=== PATIENT | male | born 1970 ===

== ENCOUNTER 2017-01-20 15:52 | Emergency (ER) | payer MEDICAID, OTHER ==
[2017-01-20 16:06] VITALS: BP 137/72; PULSE 82; RESP 20; TEMP 98.2; O2SAT 99
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
== END 2017-01-20 19:26 | disposition home or self-care (01) ==
LOC: H.ER 15:52
DX: S39.012A Strain of muscle, fascia and tendon of lower back, initial encounter (principal); V49.9XXA Car occupant (driver) (passenger) injured in unspecified traffic accident, initial encounter

== ENCOUNTER 2017-07-28 15:25 | Inpatient (IN) | payer MEDICAID, OTHER ==
[~2017-07-28 15:25] MED LIST: Insulin Regular 100 units/ml IV ONE
[2017-07-28] MEDS ORDERED: HYDROmorphone 0.5 mg/0.5 ml ISec IVP STA ×2 (16:16→17:26)
--- NOTE | 2017-07-28 16:29 | ED PDOC ---
HPI: Chest Pain Time Seen by Provider: 07/28/17 16:06 Chief Complaint (Nursing): Chest Pain Chief Complaint (Provider): chest pain, leg swelling History Per: Patient, Family () History/Exam Limitations: no limitations Onset/Duration Of Symptoms: Days (2\), Gradual Quality: Sharp Associated Symptoms: Dyspnea Modifying Factors: None Exacerbating Factors: Exertion Alleviating Factors: Rest Nitro Therapy Administered: Per EMS Additional History Per: Prior Records Additional Complaint(s): 47yo male hx chronic kidney disease not on HD presents c/o chest pain central radiating to L shoulder associated with dyspnea and lower extremity edema. States urinating very little now. Denies fever, cough, syncope. States adherent to medications, last had bloodwork performed in march. PMD -[place] [facility] -[facility] Past Medical History Reviewed: Historical Data, Nursing Documentation, Vital Signs Vital Signs: Last Vital Signs Temp 98.9 F 07/29/17 12:00 Pulse 97 H 07/29/17 12:44 Resp 11 L 07/29/17 12:00 BP 129/88 07/29/17 12:44 Pulse Ox 95 07/29/17 12:00 - Medical History PMH: Asthma, Depression (per old record, but pt does not take meds), HTN, Chronic Kidney Disease - Surgical History Surgical History: No Surg Hx - Family History Family History: States: Diabetes, Hypertension - Living Arrangements Living Arrangements: With Family - Immunization History Hx Tetanus Toxoid Vaccination: Yes Hx Influenza Vaccination: No Hx Pneumococcal Vaccination: No - Home Medications Home Medications: Ambulatory Orders Medication Instructions Recorded Albuterol/Ipratropium [Duoneb 3 3 ml IH Q8H PRN 07/28/17 mg/0.5 mg (3 ml) UD] Allopurinol [Zyloprim] 100 mg PO DAILY 07/28/17 Aspirin [Ecotrin] 81 mg PO DAILY 07/28/17 Enalapril Maleate [Vasotec] 20 mg PO BID 07/28/17 Fluticasone Nasal [Flonase] 1 spray JOB DAILY PRN 07/28/17 Fluticasone/Salmeterol 500/50 1 puff IH Q12H 07/28/17 [Advair Diskus 500/50] Furosemide [Lasix] 40 mg PO DAILY 07/28/17 Levalbuterol Tartrate [Xopenex Hfa] 1 puff IH Q4H 07/28/17 Levocetirizine Dihydrochloride 5 mg PO DAILY PRN 07/28/17 [Xyzal] Minoxidil [Minoxidil] 2.5 mg PO BID 07/28/17 Oxycodone HCl/Acetaminophen 1 tab PO Q4H PRN 07/28/17 [Percocet 10-325 mg Tablet] Promethazine HCl/Codeine 10 ml PO Q4H PRN 07/28/17 [Prometh-Codein 6.25-10 mg/5 ml] amLODIPine [Norvasc] 10 mg PO DAILY 07/28/17 cloNIDine [Catapres] 0.3 mg PO TID 07/28/17 hydrALAZINE [Apresoline] 50 mg PO BID 07/28/17 - Allergies Allergies/Adverse Reactions: Allergies Allergy/AdvReac Type Severity Reaction Status Date / Time No Known Allergies Allergy Verified 07/28/17 15:35 Review of Systems ROS Statement: Except As Marked, All Systems Reviewed And Found Negative Constitutional: Positive for: Weakness Eyes: Negative for: Vision Change ENT: Negative for: Ear Pain, Nose Pain Cardiovascular: Positive for: Chest Pain, Palpitations, Orthopnea Respiratory: Positive for: Shortness of Breath, SOB with Exertion Gastrointestinal: Negative for: Nausea, Vomiting, Abdominal Pain Genitourinary Male: Negative for: Dysuria Musculoskeletal: Positive for: Back Pain, Leg Pain. Negative for: Neck Pain, Arm Pain, Foot Pain Skin: Negative for: Rash, Lesions, Jaundice Neurological: Positive for: Dizziness. Negative for: Weakness, Numbness, Headache Psych: Negative for: Suicidal ideation Physical Exam - Reviewed Nursing Documentation Reviewed: Yes Vital Signs Reviewed: Yes - Physical Exam Appears: Positive for: Well, Non-toxic, No Acute Distress Head Exam: Positive for: ATRAUMATIC, NORMAL INSPECTION, NORMOCEPHALIC Skin: Positive for: Warm, Pallor Eye Exam: Positive for: EOMI, Normal appearance, PERRL ENT: Positive for: Normal ENT Inspection Neck: Positive for: Normal, Painless ROM Cardiovascular/Chest: Positive for: Regular Rate, Rhythm Respiratory: Positive for: CNT, Normal Breath Sounds Pulses-Radial (L): 3+/4+ Pulses-Radial (R): 3+/4+ Gastrointestinal/Abdominal: Positive for: Bowel Sounds, Soft. Negative for: Tenderness Extremity: Positive for: Swelling (b/l 2+ edema LE) Neurologic/Psych: Positive for: Alert, Oriented - Laboratory Results Result Diagrams: 07/29/17 06:15 07/29/17 06:15 - ECG ECG: Positive for: Interpreted By Me ECG Rhythm: Positive for: Sinus Rhythm, ST/T Changes, Nonspecific Changes Interpretation Of ECG: QTc 557 Rate: 79 O2 Sat by Pulse Oximetry: 100 Pulse Ox Interpretation: Normal (on supp O2 2L NC) - Radiology X-Ray: Read By Radiologist X-Ray Interpretation: No Acute Disease - Critical Care Total Time (In Min): 65 Comments: PATIENT REQUIRED IMMEDIATE AND RECURRENT BEDSIDE ATTENTION FOR ACUTE LIFE THREATENING METABOLIC EMERGENCY Medical Decision Making Medical Decision Making: labs and EKG ordered CXR ordered and reviewed by manual writer labs reveal profound anemia and acute renal failure with hyperkalemia Insulin/glucose/bicarb/kayexalate ordered D/w Dr Harrell PMD approx 630p D/w Dr Tamez ICU approx 635p D/w Dr Walters renal approx 655p Consent obtained for PRBC transfusion. Patient refused rectal exam. 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 This is because of the severity of symptoms shown, intensity of services needed, and/or the medical risk in this patient being treated as an outpatient. - POA Present On Arrival: Poor Glycemic Control
--- NOTE | 2017-07-28 16:36 | RAD ---
HISTORY: COMPARISON: 04/13/2015 TECHNIQUE: Chest PA and lateral FINDINGS: LINES AND TUBES: None. LUNG AND PLEURA: The right lung is clear. There is a left retrocardiac opacity. There is no large right pleural effusion. The left costophrenic angle is blunted. HEART AND MEDIASTINUM: The heart is not enlarged. The hilar and mediastinal contours are within normal limits. SKELETAL STRUCTURES: The bony structures are within normal limits for the patient's age. VISUALIZED UPPER ABDOMEN: Normal. OTHER FINDINGS: None. IMPRESSION: Suspect left lower lobe pneumonia and small pleural effusion. Follow-up is advised.
[2017-07-28] MEDS ORDERED: HYDROmorphone 0.5 mg/0.5 ml ISec ONE ×2 (16:41→17:27)
[2017-07-28 17:46] LABS: BASO # 1.2 K/uL (0.0-0.2); EOS % 0.1 % (0.0-4.0); HEMATOCRIT 14.1 % (35.0-51.0); LYMPH # 0.3 K/uL (1.0-4.3); LYMPH % 2.7 % (20.0-40.0); MEAN CELL VOLUME 75.4 fl (80.0-94.0); MEAN CORPUSCULAR HEMOGLOBIN 24.1 pg (27.0-31.0); MEAN CORPUSCULAR HGB CONC 31.9 g/dL (33.0-37.0); MEAN PLATELET VOLUME 10.7 fl (7.2-11.7); MONO # 0.4 K/uL (0.0-0.8); MONO % 3.5 % (0.0-10.0); NEUT # 10.1 K/uL (1.8-7.0); NEUT % 83.7 % (50.0-75.0); NRBC % 0.3 % (0.0-0.0); PLATELET COUNT 167 K/uL (130-400); RED CELL DISTRIBUTION WIDTH 23.4 % (11.5-14.5)
[2017-07-28] MEDS ORDERED: Sod Polystyrene Sulf 15 gm/60 ml Susp PO ONE (18:31)
[2017-07-28] MEDS ORDERED: Dextrose 50% SYRINGE Inj (50 ml) IVP ONE (18:31)
[2017-07-28 18:33] LABS: ALB/GLOB RATIO 1.4 (1.0-2.1); BILIRUBIN,TOTAL 0.4 mg/dl (0.2-1.3); CALCIUM 5.4 mg/dL (8.4-10.2); POTASSIUM 6.5 MMOL/L (3.6-5.0); TOTAL PROTEIN 7.7 G/DL (6.3-8.2)
[2017-07-28 18:34] LABS: PARTIAL THROMBOPLASTIN TIME 32.3 Seconds (25.6-37.1)
[2017-07-28] MEDS ORDERED: Sodium Bicarbonate 7.5% (0.9 MEQ/ML) 50ML INJ IV ONE (18:39)
[2017-07-28] MEDS ORDERED: DEXTROSE 5% IV ONE (18:45)
[2017-07-28] MEDS ORDERED: WATER IV ONE (18:45)
[2017-07-28] MEDS ORDERED: CALCIUM GLUCONATE IV ONE (18:45)
--- NOTE | 2017-07-28 18:56 | CP.CCUPN ---
CCU Subjective - Physician Review Subjective (Free Text): 07/28/17 The Patient was seen and examined at the bedside, Medical records reviewed, and management issues were discussed and formulated with the house staff. Mr Sampson is 47 Y/O M with PMHx of HTN, Asthma, Depression and Chronic Kidney Disease Who presents to the ER with complaint od chest pain central radiating to L shoulder associated with dyspnea and lower extremity edema. No Fever/Chills, nausea, vomiting. No chest pain, abd pain. No dysurea nut admit decrease urine out put Labs sig for profound anemia , and acute on chronic renal failure with Bun/Cr 158/27 with hyperkalemia Insulin/glucose/bicarb/kayexalate given in ER In the ED he had elevated BP 168/90, Afebrile Afebrile Renal consulted Underwent HD access placement and will receive emergent HD CCU Objective - Vital Signs / Intake & Output Vital Signs (Last 4 hours): Vital Signs Temp Pulse Pulse Resp BP Pulse Ox 07/28/17 18:50 86 07/28/17 18:37 79 100 07/28/17 15:37 97.4 F L 81 16 168/90 H 100 Intake and Output (Last 8hrs): Intake & Output 07/28/17 07/28/17 07/28/17 06:59 14:59 22:59 Weight 185 lb - Physical Exam Head: Positive for: Atraumatic, Normocephalic. Negative for: Tenderness, Contusion Pupils: Positive for: PERRL. Negative for: Sluggish, Non-Reactive Extroacular Muscles: Positive for: EOMI. Negative for: Gaze Palsy, Entrapment Conjunctiva: Positive for: Normal. Negative for: Injected, Icteric Mouth: Positive for: Moist Mucous Membranes Neck: Positive for: Normal Range of Motion, Trachea Midline. Negative for: Meningeal Signs, MIDLINE TENDERNESS, Paraspinal Tenderness, JVD, Lymphadenopathy , Bruit, Other Respiratory/Chest: Positive for: Clear to Auscultation, Good Air Exchange, Rales , Rhonchi, Tachypneic. Negative for: Respiratory Distress, Accessory Muscle Use Cardiovascular: Positive for: Regular Rate and Rhythm, Normal S1, S2, Peripheal Pulses Present. Negative for: Murmurs, Irregular Rhythm, Tachycardic Upper Extremity: Positive for: Normal Inspection, NORMAL PULSES. Negative for: Cyanosis, Edema Lower Extremity: Positive for: Edema, CALF TENDERNESS (+2), NORMAL PULSES, Capillary Refill < 2 s Neurological: Positive for: GCS=15, CN II-XII Intact, Speech Normal, Motor Func Grossly Intact, Normal Sensory Function Psychiatric: Positive for: Alert, Oriented x 3, Normal Insight, Normal Concentration - Medications Active Medications: Active Medications Generic Name Dose Route Start Last Admin Trade Name Freq PRN Reason Stop Dose Admin Calcium Gluconate 1,000 mg/ 60 mls @ 60 mls/hr 07/28/17 18:45 Dextrose IV 07/28/17 19:44 ONCE ONE - Patient Studies Lab Studies: Lab Studies 07/28/17 07/28/17 07/28/17 Range/Units 17:40 17:40 17:40 WBC 12.0 H (4.8-10.8) K/uL RBC 1.88 L (4.40-5.90) Mil/uL Hgb 4.5 L* (12.0-18.0) g/dL Hct 14.1 L (35.0-51.0) % MCV 75.4 L D (80.0-94.0) fl MCH 24.1 L (27.0-31.0) pg MCHC 31.9 L (33.0-37.0) g/dL RDW 23.4 H (11.5-14.5) % Plt Count 167 (130-400) K/uL MPV 10.7 (7.2-11.7) fl Neut % (Auto) 83.7 H (50.0-75.0) % Lymph % (Auto) 2.7 L (20.0-40.0) % [place] % (Auto) 3.5 (0.0-10.0) % Eos % (Auto) 0.1 (0.0-4.0) % Baso % (Auto) 10.0 H (0.0-2.0) % Neut # 10.1 H (1.8-7.0) K/uL Lymph # 0.3 L (1.0-4.3) K/uL [place] # 0.4 (0.0-0.8) K/uL Eos # 0.0 (0.0-0.7) K/uL Baso # 1.2 H (0.0-0.2) K/uL PT 12.4 (9.8-13.1) Seconds INR 1.1 (0.9-1.2) APTT 32.3 (25.6-37.1) Seconds Sodium 136 Potassium 6.5 H* D Chloride 102 Carbon Dioxide 9 L* D Anion Gap 32 H BUN 158 H* D Creatinine 27.8 H* Est GFR ( Amer) 2 Est GFR (Non-Af Amer) 2 Random Glucose 119 H Calcium 5.4 L* D Total Bilirubin 0.4 AST 46 ALT 51 Alkaline Phosphatase 56 Troponin I NT-Pro-B Natriuret Pep Total Protein 7.7 Albumin 4.4 Globulin 3.3 Albumin/Globulin Ratio 1.4 07/28/17 07/28/17 Range/Units 16:43 16:43 WBC (4.8-10.8) K/uL RBC (4.40-5.90) Mil/uL Hgb (12.0-18.0) g/dL Hct (35.0-51.0) % MCV (80.0-94.0) fl MCH (27.0-31.0) pg MCHC (33.0-37.0) g/dL RDW (11.5-14.5) % Plt Count (130-400) K/uL MPV (7.2-11.7) fl Neut % (Auto) (50.0-75.0) % Lymph % (Auto) (20.0-40.0) % [place] % (Auto) (0.0-10.0) % Eos % (Auto) (0.0-4.0) % Baso % (Auto) (0.0-2.0) % Neut # (1.8-7.0) K/uL Lymph # (1.0-4.3) K/uL [place] # (0.0-0.8) K/uL Eos # (0.0-0.7) K/uL Baso # (0.0-0.2) K/uL PT 12.4 (9.8-13.1) Seconds INR 1.1 (0.9-1.2) APTT 29.0 (25.6-37.1) Seconds Sodium Cancelled Potassium Cancelled Chloride Cancelled Carbon Dioxide Cancelled Anion Gap Cancelled BUN Cancelled Creatinine Cancelled Est GFR ( Amer) Cancelled Est GFR (Non-Af Amer) Cancelled Random Glucose Cancelled Calcium Cancelled Total Bilirubin Cancelled AST Cancelled ALT Cancelled Alkaline Phosphatase Cancelled Troponin I Cancelled NT-Pro-B Natriuret Pep Cancelled Total Protein Cancelled Albumin Cancelled Globulin Cancelled Albumin/Globulin Ratio Cancelled Laboratory Results - last 24 hr 07/28/17 07/28/17 07/28/17 16:43 16:43 17:40 WBC 12.0 H RBC 1.88 L Hgb 4.5 L* Hct 14.1 L MCV 75.4 L D MCH 24.1 L MCHC 31.9 L RDW 23.4 H Plt Count 167 MPV 10.7 Neut % (Auto) 83.7 H Lymph % (Auto) 2.7 L [place] % (Auto) 3.5 Eos % (Auto) 0.1 Baso % (Auto) 10.0 H Neut # 10.1 H Lymph # 0.3 L [place] # 0.4 Eos # 0.0 Baso # 1.2 H PT 12.4 INR 1.1 APTT 29.0 Sodium Cancelled Potassium Cancelled Chloride Cancelled Carbon Dioxide Cancelled Anion Gap Cancelled BUN Cancelled Creatinine Cancelled Est GFR ( Amer) Cancelled Est GFR (Non-Af Amer) Cancelled Random Glucose Cancelled Calcium Cancelled Total Bilirubin Cancelled AST Cancelled ALT Cancelled Alkaline Phosphatase Cancelled Troponin I Cancelled NT-Pro-B Natriuret Pep Cancelled Total Protein Cancelled Albumin Cancelled Globulin Cancelled Albumin/Globulin Ratio Cancelled 07/28/17 07/28/17 17:40 17:40 WBC RBC Hgb Hct MCV MCH MCHC RDW Plt Count MPV Neut % (Auto) Lymph % (Auto) [place] % (Auto) Eos % (Auto) Baso % (Auto) Neut # Lymph # [place] # Eos # Baso # PT 12.4 INR 1.1 APTT 32.3 Sodium 136 Potassium 6.5 H* D Chloride 102 Carbon Dioxide 9 L* D Anion Gap 32 H BUN 158 H* D Creatinine 27.8 H* Est GFR ( Amer) 2 Est GFR (Non-Af Amer) 2 Random Glucose 119 H Calcium 5.4 L* D Total Bilirubin 0.4 AST 46 ALT 51 Alkaline Phosphatase 56 Troponin I NT-Pro-B Natriuret Pep Total Protein 7.7 Albumin 4.4 Globulin 3.3 Albumin/Globulin Ratio 1.4 EKG/Cardiology Studies: Cardiology / EKG Studies 07/28/17 16:06 ELECTROCARDIOGRAM Stat Comment: Mode Of Transportation: Reason For Exam: CP Isolation: Contact Review of Systems - Cardiovascular Cardiovascular: absent: Chest Pain at Rest, Chest Pain with Activity, Diaphoresis - Respiratory Respiratory: Dyspnea, Dyspnea on Exertion. absent: Hemoptysis - Gastrointestinal Gastrointestinal: absent: Abdominal Pain Critical Care Progress Note - Extremities/Vascular Does the Patient have a Central Venous Catheter?: Yes Does the Patient need a Central Venous Catheter?: Yes Does the Patient have a Dickson Catheter?: No Does the Patient need a Dickson Catheter?: No Assessment/Plan (1) Hyperkalemia Current Visit: Yes Status: Acute (2) Severe anemia Current Visit: Yes Status: Acute (3) [id number] renal failure Current Visit: No Status: Acute Priority: High - Assessment and Plan (Free Text) Plan: - Acute kidney injury with Hyperkalemia, prerenal disease also uncontrolled HTN and need to R/O obstruction. - Metabolic acidosis (anion gap) - Hyperkalemia, EKG without peaked t-waves. Nephrology Consult appreciated, emergent dialysis Underwent HD access placement and will receive emergent HD Supplement calcium Vascular Consult for AV Shunt Correct hyperkalemia with D50, Insulin, calcium gluconate Repeat Labs, EKG, lactic acid, CPK, phosphate Type and cross match 4U Packed RBC, transfuse 2U with HD Stool for occult blood Cont outpatient meds (adjust for GFR)
[2017-07-28] MEDS ORDERED: Sod Polystyrene Sulf 15 gm/60 ml Susp ONE (18:59)
[2017-07-28] MEDS ORDERED: Dextrose 50% SYRINGE Inj (50 ml) ONE (19:03)
[2017-07-28 19:31] LABS: ACANTHOCYTES SLIGHT; BASOPHIL 1 % (0-2); EOSINOPHIL 1 % (0-7); NEUTROPHIL 86 % (42-75); TOTAL CELLS COUNTED 100
[2017-07-29] MEDS ORDERED: Enalaprilat 2.5 MG/2 ML IVP STA ×2 (00:19→05:39)
--- NOTE | 2017-07-29 01:55 | PCM.PROC ---
Procedures Attestation:: I certify that I have explained the specified Operation(s) or Procedure(s), risks, benefits and reasonable alternatives to the Patient and/or other person responsible. The opportunity was given to ask questions and all questions answered - Central Line Placement Right Femoral Hemodialysis Access Aseptic technique was employed throughout the procedure: Hand Hygiene done prior to procedure, Full sterile barriers (mask, hair cover, sterile gown, sterile gloves), Chloraprep Antiseptic: 2 minute prep for Femoral CVP Time Out Performed: Yes Pt. Placed on Pulse Ox Monitor: Yes Central Line Prep: Chlorhexidine-Alcohol Combination Local Anesthesia Used: With Epinepherine Amount of Anesthesia Used (mls): 5 Ultrasound Used for Placement: Yes Central Line Lumen Inserted: double Central Line Length: 16 cm Post Procedure: Sutured in Place, Good Blood Return, All Ports Aspirated, Flushed, Capped, Sterile Dressing Applied Secured by: Suture Post procedure dressing: Clear vapor permeable, Chlorhexidine disc (Biopatch) Patient Tolerated Procedure: Well, No Complications
[2017-07-29] MEDS ORDERED: HYDROmorphone 0.5 mg/0.5 ml ISec IVP PRN (05:18)
[2017-07-29] MEDS ORDERED: Albuterol-Ipratrop 3 mg / 0.5 (3 ml) UD IH PRN (05:28)
[2017-07-29] MEDS ORDERED: Oxycodone/Acetaminophen 5/325 mg Tab PO PRN ×2 (05:31→05:32)
[2017-07-29] MEDS: Fluticasone-Salmeterol 500-50mcg Diskus IH SCH ×2 (06:21→17:10)
[2017-07-29 06:40] LABS: HEMATOCRIT 19.6 % (35.0-51.0); MEAN CELL VOLUME 79.2 fl (80.0-94.0); MEAN CORPUSCULAR HEMOGLOBIN 26.3 pg (27.0-31.0); MEAN CORPUSCULAR HGB CONC 33.2 g/dL (33.0-37.0); RED CELL DISTRIBUTION WIDTH 22.3 % (11.5-14.5)
[2017-07-29 07:18] LABS: ALB/GLOB RATIO 1.4 (1.0-2.1); BILIRUBIN,TOTAL 0.4 mg/dl (0.2-1.3); CALCIUM 6.2 mg/dL (8.4-10.2); MAGNESIUM 1.5 MG/DL (1.6-2.3); PHOSPHOROUS 9.4 mg/dl (2.5-4.5); POTASSIUM 4.2 MMOL/L (3.6-5.0); TOTAL PROTEIN 7.4 G/DL (6.3-8.2)
--- NOTE | 2017-07-29 11:49 | CARD ---
APPROVED REPORT EKG Measurement Heart [id number] <Conclusion> Normal sinus rhythm Possible Left atrial enlargement Left ventricular hypertrophy Prolonged QT Abnormal ECG
--- NOTE | 2017-07-29 15:32 | CP.PCM.PN ---
Subjective - Date & Time of Evaluation Date of Evaluation: 07/29/17 Time of Evaluation: 15:23 - Subjective Subjective: consult dictated now Dialysis Note HD started now for 3 h, this is second HD pi. sitting up in bed ,working on his phone nausea + pale no vomiting P/E receiving HD now via temporary catheter. chest no rales HT no rubs RSR Abd.soft ext. 1+ pitting edema lab reviewed creat over 21 hbg 6+ received 2 unit PC this morning NA bath 138, K 2 meq bicarb. bath 34 UF 2000 as tolerated hyperphosphatemia metabolic acidosis anemia uremia HTN will need more HD tomorrow. Objective - Vital Signs/Intake and Output Vital Signs (last 24 hours): Temp Pulse Resp BP Pulse Ox 98.9 F 107 H 16 153/104 H 99 07/29/17 12:00 07/29/17 14:00 07/29/17 14:00 07/29/17 14:00 07/29/17 14:00 Intake and Output: 07/29/17 07/29/17 06:59 18:59 Intake Total 325 650 Output Total 1999 Balance -0611 650 - Medications Medications: Current Medications Albuterol/Ipratropium (Duoneb 3 Mg/0.5 Mg (3 Ml) Ud) 3 ml IH Q8H PRN PRN Reason: Shortness of Breath Allopurinol (Zyloprim) 100 mg PO DAILY [facility] Last Admin: 07/29/17 09:15 Dose: 100 mg Amlodipine Besylate (Norvasc) 10 mg PO DAILY [facility] Clonidine HCl (Catapres) 0.3 mg PO TID [facility] Last Admin: 07/29/17 12:44 Dose: Not Given Enalapril Maleate (Vasotec) 20 mg PO BID [facility] Hydralazine HCl (Apresoline) 50 mg PO BID [facility] Hydralazine HCl (Apresoline) 10 mg IV Q6 [facility] Last Admin: 07/29/17 09:12 Dose: 10 mg Hydromorphone HCl (Dilaudid) 1 mg IVP Q4 PRN PRN Reason: Pain, severe (8-10) Last Admin: 07/29/17 10:17 Dose: 1 mg Hydromorphone HCl (Dilaudid) 0.5 mg IVP Q4H PRN PRN Reason: Pain, moderate (4-7) Stop: 07/31/17 05:19 Minoxidil (Minoxidil) 2.5 mg PO BID [facility] Last Admin: 07/29/17 09:14 Dose: 2.5 mg Ondansetron HCl (Zofran Inj) 4 mg IVP Q4 PRN PRN Reason: Nausea/Vomiting Last Admin: 07/29/17 09:15 Dose: 4 mg Fluticasone/Salmeterol (Advair Diskus 500/50) 1 puff IH Q12H [facility] Last Admin: 07/29/17 06:21 Dose: 1 puff - Labs Labs: 07/29/17 06:15 07/29/17 06:15 PT 12.4 Seconds (9.8-13.1) 07/28/17 17:40 INR 1.1 (0.9-1.2) 07/28/17 17:40 APTT 32.3 Seconds (25.6-37.1) 07/28/17 17:40
--- NOTE | 2017-07-29 16:18 | CP.PCM.HP ---
History of Present Illness - History of Present Illness History of Present Illness: CC: Chest pain. 47 y/o M, brought to [facility] for evaluation of CP for 2 days [employer] with no relief. Pt was brought to hospital on 07/28/17 by EMS for evaluation of central chest pain gradually increased from 2 days [employer], Pt received ASA and 324 mg Nitro spay x3 from autotransfusionist but upon arrival to ER symptoms continued, pain was intermittent, sharp, stabbing, severe intensity 9-10:10, radiated to L shoulder associated to Dyspnea, legs swelling, legs edema and pain. Worsening symptoms: Found with Severe anemia, Acute Renal failure, Hyperkalemia (Critical Lab result: Hgb 4.5, K 6.5, Carbon Dioxide 9, BUN 150, Creatinine 27.8 Calcio 5.4), Pt with Weaknesses, dizziness, back pain, SOTELO and c/o of decreased urine output. Pt had Nephrology emergency consult for HD, also had 4 U PRBC transfused, Hgb today appear in 6.5 Aggravated factor: Pain increased with movements/ exercise. Pt denied: Fever, chills, v/v/d, abdominal pain, cough, syncope, dysuria, sick contact, recent travel. CXR: Suspected for LLL PNA and small pleural effusion Present on Admission - Present on Admission Any Indicators Present on Admission: Yes History of Uncontrolled Diabetes: Yes Review of Systems - Constitutional Constitutional: Weakness - EENT Eyes: Other (negative) Ears: Other (negative) Nose/Mouth/Throat: Other (negative) - Cardiovascular Cardiovascular: Chest Pain, Chest Pain at Rest, Chest Pain with Activity, Pain Radiating to Arm/Neck/Jaw (radiated to L shoulder), Leg Edema, Rapid Heart Rate - Respiratory Respiratory: Dyspnea, Dyspnea on Exertion - Gastrointestinal Gastrointestinal: Other (negative) - Genitourinary Genitourinary: Other (decreassed output) - Musculoskeletal Musculoskeletal: Back Pain, Other (shoulder pain) - Integumentary Integumentary: Swelling (legs), Other (negative) - Neurological Neurological: Dizziness, Weakness - Psychiatric Psychiatric: Other (negative) - Endocrine Endocrine: Other (negative) - Hematologic/Lymphatic Hematologic: Other (severe anemia.) Past Patient History - Past Medical History & Family History Past Medical History?: Yes Pertinent Family History: HTN, DM - Past Social History Smoking Status: Current Some Days Smoker Alcohol: None Drugs: Denies Home Situation {Lives}: With Family - CARDIAC Hx Cardiac Disorders: Yes Hx Hypertension: Yes - PULMONARY Hx Respiratory Disorders: Yes Hx Asthma: Yes - NEUROLOGICAL Hx Neurological Disorder: No - HEENT Hx HEENT Problems: No - RENAL Hx Chronic Kidney Disease: Yes - ENDOCRINE/METABOLIC Hx Endocrine Disorders: No - HEMATOLOGICAL/ONCOLOGICAL Hx Blood Disorders: Yes Hx Anemia: Yes Hx Blood Transfusions: No - INTEGUMENTARY Hx Dermatological Problems: No - MUSCULOSKELETAL/RHEUMATOLOGICAL Hx Musculoskeletal Disorders: Yes Hx Back Pain: Yes Hx Falls: No Hx Herniated Disk: Yes Hx Unsteady Gait: Yes - GASTROINTESTINAL Hx Gastrointestinal Disorders: No - GENITOURINARY/GYNECOLOGICAL Hx Genitourinary Disorders: No - PSYCHIATRIC Hx Psychophysiologic Disorder: Yes Hx Depression: Yes (per old record, but pt does not take meds) - SURGICAL HISTORY Hx Surgeries: No - ANESTHESIA Hx Anesthesia: No Hx Anesthesia Reactions: No Hx Malignant Hyperthermia: No Has any member of the family had a problem w/ anesthesia?: No Meds Allergies/Adverse Reactions: Allergies Allergy/AdvReac Type Severity Reaction Status Date / Time No Known Allergies Allergy Verified 07/28/17 15:35 Physical Exam - Constitutional Appears: No Acute Distress - Head Exam Head Exam: NORMAL INSPECTION - Eye Exam Eye Exam: PERRL - ENT Exam ENT Exam: Normal Exam - Neck Exam Neck exam: Positive for: Normal Inspection - Respiratory Exam Respiratory Exam: Decreased Breath Sounds (at bases), Rhonchi - Cardiovascular Exam Cardiovascular Exam: Tachycardia - GI/Abdominal Exam GI & Abdominal Exam: Normal Bowel Sounds, Soft - Extremities Exam Additional comments: Edema 2+ BLE, Swelling BLE. Pedal pulse 2+. - Back Exam Back exam: NORMAL INSPECTION - Neurological Exam Neurological exam: Alert, Oriented x3 Additional comments: No motor sensory deficit - Psychiatric Exam Psychiatric exam: Normal Mood - Skin Skin Exam: Warm Results - Vital Signs Recent Vital Signs: Last Vital Signs Temp 98.9 F 07/29/17 12:00 Pulse 107 H 07/29/17 14:00 Resp 16 07/29/17 14:00 BP 153/104 H 07/29/17 14:00 Pulse Ox 99 07/29/17 14:00 reviewed Torrie - Labs Result Diagrams: 07/29/17 06:15 07/29/17 06:15 Labs: Laboratory Results - last 24 hr 1107/28/17 07/28/17 16:43 16:43 17:40 WBC 12.0 H RBC 1.88 L Hgb 4.5 L* Hct 14.1 L MCV 75.4 L D MCH 24.1 L MCHC 31.9 L RDW 23.4 H Plt Count 167 MPV 10.7 Neut % (Auto) 83.7 H Lymph % (Auto) 2.7 L Casey % (Auto) 3.5 Eos % (Auto) 0.1 Baso % (Auto) 10.0 H Neut # 10.1 H Lymph # 0.3 L Casey # 0.4 Eos # 0.0 Baso # 1.2 H Neutrophils % (Manual) 86 H Band Neutrophils % 3 H Lymphocytes % (Manual) 5 L Monocytes % (Manual) 4 Eosinophils % (Manual) 1 Basophils % (Manual) 1 Platelet Estimate Normal Hypochromasia (manual) Moderate Poikilocytosis (manual Moderate Anisocytosis (manual) Marked Microcytosis (manual) Moderate Target Cells Moderate Tear Drop Cells Slight Acanthocytes (Spur) Slight Schistocytes Slight PT 12.4 INR 1.1 APTT 29.0 Sodium Cancelled Potassium Cancelled Chloride Cancelled Carbon Dioxide Cancelled Anion Gap Cancelled BUN Cancelled Creatinine Cancelled Est GFR ( Amer) Cancelled Est GFR (Non-Af Amer) Cancelled Random Glucose Cancelled Calcium Cancelled Phosphorus Magnesium Total Bilirubin Cancelled AST Cancelled ALT Cancelled Alkaline Phosphatase Cancelled Troponin I Cancelled NT-Pro-B Natriuret Pep Cancelled Total Protein Cancelled Albumin Cancelled Globulin Cancelled Albumin/Globulin Ratio Cancelled Hep Bs Antigen Hep B Core IgM Ab Blood Type Blood Type Confirm Antibody Screen Crossmatch BBK History Checked 07/28/17 07/28/17 07/28/17 17:40 17:40 17:40 WBC RBC Hgb Hct MCV MCH MCHC RDW Plt Count MPV Neut % (Auto) Lymph % (Auto) Casey % (Auto) Eos % (Auto) Baso % (Auto) Neut # Lymph # Casey # Eos # Baso # Neutrophils % (Manual) Band Neutrophils % Lymphocytes % (Manual) Monocytes % (Manual) Eosinophils % (Manual) Basophils % (Manual) Platelet Estimate Hypochromasia (manual) Poikilocytosis (manual Anisocytosis (manual) Microcytosis (manual) Target Cells Tear Drop Cells Acanthocytes (Spur) Schistocytes PT 12.4 INR 1.1 APTT 32.3 Sodium 136 Potassium 6.5 H* D Chloride 102 Carbon Dioxide 9 L* D Anion Gap 32 H BUN 158 H* D Creatinine 27.8 H* Est GFR ( Amer) 2 Est GFR (Non-Af Amer) 2 Random Glucose 119 H Calcium 5.4 L* D Phosphorus Magnesium Total Bilirubin 0.4 AST 46 ALT 51 Alkaline Phosphatase 56 Troponin I NT-Pro-B Natriuret Pep Total Protein 7.7 Albumin 4.4 Globulin 3.3 Albumin/Globulin Ratio 1.4 Hep Bs Antigen Hep B Core IgM Ab Blood Type O POSITIVE Blood Type Confirm Antibody Screen Negative Crossmatch See Detail BBK History Checked No verified bt 07/28/17 07/28/17 07/28/17 18:40 18:55 23:23 WBC RBC Hgb Hct MCV MCH MCHC RDW Plt Count MPV Neut % (Auto) Lymph % (Auto) Casey % (Auto) Eos % (Auto) Baso % (Auto) Neut # Lymph # Casey # Eos # Baso # Neutrophils % (Manual) Band Neutrophils % Lymphocytes % (Manual) Monocytes % (Manual) Eosinophils % (Manual) Basophils % (Manual) Platelet Estimate Hypochromasia (manual) Poikilocytosis (manual Anisocytosis (manual) Microcytosis (manual) Target Cells Tear Drop Cells Acanthocytes (Spur) Schistocytes PT INR APTT Sodium Potassium Chloride Carbon Dioxide Anion Gap BUN Creatinine Est GFR ( Amer) Est GFR (Non-Af Amer) Random Glucose Calcium Phosphorus Magnesium Total Bilirubin AST ALT Alkaline Phosphatase Troponin I 0.0700 NT-Pro-B Natriuret Pep Total Protein Albumin Globulin Albumin/Globulin Ratio Hep Bs Antigen Negative Hep B Core IgM Ab Negative Blood Type Blood Type Confirm O POSITIVE Antibody Screen Crossmatch BBK History Checked 07/29/17 07/29/17 06:15 06:15 WBC 13.0 H RBC 2.48 L Hgb 6.5 L* D Hct 19.6 L MCV 79.2 L D MCH 26.3 L MCHC 33.2 RDW 22.3 H Plt Count 143 MPV Neut % (Auto) Lymph % (Auto) Casey % (Auto) Eos % (Auto) Baso % (Auto) Neut # Lymph # Casey # Eos # Baso # Neutrophils % (Manual) Band Neutrophils % Lymphocytes % (Manual) Monocytes % (Manual) Eosinophils % (Manual) Basophils % (Manual) Platelet Estimate Hypochromasia (manual) Poikilocytosis (manual Anisocytosis (manual) Microcytosis (manual) Target Cells Tear Drop Cells Acanthocytes (Spur) Schistocytes PT INR APTT Sodium 138 Potassium 4.2 Chloride 100 Carbon Dioxide 15 L Anion Gap 28 H BUN 119 H* D Creatinine 21.6 H* D Est GFR ( Amer) 3 Est GFR (Non-Af Amer) 2 Random Glucose 112 H Calcium 6.2 L Phosphorus 9.4 H Magnesium 1.5 L Total Bilirubin 0.4 AST 42 ALT 44 Alkaline Phosphatase 57 Troponin I NT-Pro-B Natriuret Pep Total Protein 7.4 Albumin 4.3 Globulin 3.1 Albumin/Globulin Ratio 1.4 Hep Bs Antigen Hep B Core IgM Ab Blood Type Blood Type Confirm Antibody Screen Crossmatch BBK History Checked reviewed J.P. Assessment & Plan (1) Chest pain Status: Acute Priority: High (2) Hyperkalemia Status: Acute Priority: High (3) Chronic kidney disease, stage IV (severe) Status: Acute Priority: High (4) [id number] renal failure Status: Acute Priority: High (5) Hypertensive renal disease Status: Chronic Priority: High (6) Uncontrolled hypertension Status: Acute Priority: High (7) Back pain Status: Chronic Priority: High (8) Weakness Status: Chronic Priority: High - Assessment and Plan (Free Text) Plan: F/U EKG, continue Catapres, Minoxidil, Norvasc, Duoneb, Dilaudid, Renal diet, PT , OT, Nephrology consult appreciated - Date & Time Date: 07/29/17 Time: 10:30
--- NOTE | 2017-07-29 17:49 | CP.CCUPN ---
CCU Subjective - Physician Review Subjective (Free Text): Underwent HD overnight and again now, given 3rd and 4th units PRBCs. Platelets withheld since there is no active bleeding. 1 unit FFP also recd overnight. He denies any SOB, has intermittent non-specific chest discomfort, not assoc with radiation, dizziness, sweats, palpitations or SOB. Other vitals and I/O's reviewed. ROS: No other pertinent negs or positives on 10+ system review. PMSFH: All other Nursing and physician documentation reviewed to date; no new pertinent info noted relevant to current medical problems. IMPRESSION / MAJOR PROBLEMS NOW: 1. Acute Renal failure / Uremia; on CKD, with Hyperkalemia 2. Severe Chronic Disease Anemia 3. Chronic LBP syndrome PLAN: 1. HD as per Nephrology. Phosphate binders, watch Ca levels. 2. Additional PRBCs today ordered, platelet transfusion cancelled, unless there is active bleeding evident due to possible dysfunctional platelets. 3. Supplement Magnesium. 4. Cautious narcotic use for chronic pain syndrome. 5. Stable for Tele bed. CCU Objective - Vital Signs / Intake & Output Vital Signs (Last 4 hours): Vital Signs Temp Pulse Resp BP Pulse Ox 07/29/17 17:11 96 H 153/94 H 07/29/17 17:10 95 H 153/94 H 07/29/17 16:00 99.0 F 95 H 146/99 H 100 07/29/17 14:00 107 H 16 153/104 H 99 07/29/17 13:52 79 100 Intake and Output (Last 8hrs): Intake & Output 07/29/17 07/29/17 07/29/17 06:59 14:59 22:59 Intake Total 325 650 Output Total 1999 Balance -0031 650 Intake: Blood Product 325 650 Output: Ultrafiltrate 1999 - Physical Exam Head: Positive for: Normocephalic Pupils: Positive for: PERRL Extroacular Muscles: Positive for: EOMI Conjunctiva: Positive for: Normal. Negative for: Injected, Icteric Mouth: Positive for: Moist Mucous Membranes Neck: Positive for: Normal Range of Motion. Negative for: JVD Respiratory/Chest: Positive for: Clear to Auscultation, Good Air Exchange, Respiratory Distress, Rales, Tachypneic. Negative for: Accessory Muscle Use Cardiovascular: Positive for: Regular Rate and Rhythm, Normal S1, S2, Peripheal Pulses Present. Negative for: Murmurs, Tachycardic, Rub Abdomen: Positive for: Normal Bowel Sounds. Negative for: Tenderness, Distention, Mass/Organomegaly Upper Extremity: Positive for: Normal Inspection, NORMAL PULSES. Negative for: Cyanosis, Edema Lower Extremity: Positive for: Edema, CALF TENDERNESS (+2), NORMAL PULSES, Capillary Refill < 2 s Neurological: Positive for: GCS=15, CN II-XII Intact, Speech Normal, Motor Func Grossly Intact, Normal Sensory Function Psychiatric: Positive for: Alert, Oriented x 3, Normal Insight, Normal Concentration - Medications Active Medications: Active Medications Generic Name Dose Route Start Last Admin Trade Name Freq PRN Reason Stop Dose Admin Albuterol/Ipratropium 3 ml 07/29/17 05:28 Duoneb 3 Mg/0.5 Mg (3 Ml) Ud IH Q8H PRN Shortness of Breath Allopurinol 100 mg 07/29/17 09:00 07/29/17 09:15 Zyloprim PO 100 mg DAILY JUAN DAVID Administration Amlodipine Besylate 10 mg 07/29/17 09:00 07/29/17 17:11 Norvasc PO Not Given DAILY JUAN DAVID Clonidine HCl 0.3 mg 07/29/17 09:00 07/29/17 17:10 Catapres PO Not Given TID JUAN DAVID Enalapril Maleate 20 mg 07/29/17 09:00 Vasotec PO BID JUAN DAVID Hydralazine HCl 50 mg 07/29/17 09:00 Apresoline PO BID JUAN DAVID Hydralazine HCl 10 mg 07/29/17 10:00 07/29/17 17:10 Apresoline IV Not Given Q6 JUAN DAVID Hydromorphone HCl 1 mg 07/29/17 05:18 07/29/17 15:25 Dilaudid IVP 1 mg Q4 PRN Administration Pain, severe (8-10) Hydromorphone HCl 0.5 mg 07/29/17 05:18 Dilaudid IVP 07/31/17 05:19 Q4H PRN Pain, moderate (4-7) Minoxidil 2.5 mg 07/29/17 09:00 07/29/17 17:11 Minoxidil PO Not Given BID JUAN DAVID Ondansetron HCl 4 mg 07/28/17 22:03 07/29/17 09:15 Zofran Inj IVP 4 mg Q4 PRN Administration Nausea/Vomiting Fluticasone/Salmeterol 1 puff 07/29/17 05:30 07/29/17 17:10 Advair Diskus 500/50 IH 1 puff Q12H JUAN DAVID Administration - Patient Studies Lab Studies: Lab Studies 07/29/17 07/29/17 07/28/17 Range/Units 06:15 06:15 23:23 WBC 13.0 H (4.8-10.8) K/uL RBC 2.48 L (4.40-5.90) Mil/uL Hgb 6.5 L* D (12.0-18.0) g/dL Hct 19.6 L (35.0-51.0) % MCV 79.2 L D (80.0-94.0) fl MCH 26.3 L (27.0-31.0) pg MCHC 33.2 (33.0-37.0) g/dL RDW 22.3 H (11.5-14.5) % Plt Count 143 (130-400) K/uL MPV (7.2-11.7) fl Neut % (Auto) (50.0-75.0) % Lymph % (Auto) (20.0-40.0) % [place] % (Auto) (0.0-10.0) % Eos % (Auto) (0.0-4.0) % Baso % (Auto) (0.0-2.0) % Neut # (1.8-7.0) K/uL Lymph # (1.0-4.3) K/uL [place] # (0.0-0.8) K/uL Eos # (0.0-0.7) K/uL Baso # (0.0-0.2) K/uL Neutrophils % (Manual) (42-75) % Band Neutrophils % (0-2) % Lymphocytes % (Manual) (20-50) % Monocytes % (Manual) (0-10) % Eosinophils % (Manual) (0-7) % Basophils % (Manual) (0-2) % Platelet Estimate (NORMAL) Hypochromasia (manual) Poikilocytosis (manual Anisocytosis (manual) Microcytosis (manual) Target Cells Tear Drop Cells Acanthocytes (Spur) Schistocytes PT (9.8-13.1) Seconds INR (0.9-1.2) APTT (25.6-37.1) Seconds Sodium 138 (132-148) mmol/l Potassium 4.2 (3.6-5.0) MMOL/L Chloride 100 (98-107) mmol/L Carbon Dioxide 15 L (22-30) mmol/L Anion Gap 28 H (10-20) BUN 119 H* D (9-20) mg/dl Creatinine 21.6 H* D (0.8-1.5) mg/dl Est GFR ( Amer) 3 Est GFR (Non-Af Amer) 2 Random Glucose 112 H (75-110) mg/dL Calcium 6.2 L (8.4-10.2) mg/dL Phosphorus 9.4 H (2.5-4.5) mg/dl Magnesium 1.5 L (1.6-2.3) MG/DL Total Bilirubin 0.4 (0.2-1.3) mg/dl AST 42 (17-59) U/L ALT 44 (21-72) U/L Alkaline Phosphatase 57 (38-126) U/L Troponin I (0.00-0.120) ng/mL Total Protein 7.4 (6.3-8.2) G/DL Albumin 4.3 (3.5-5.0) g/dL Globulin 3.1 (2.2-3.9) gm/dL Albumin/Globulin Ratio 1.4 (1.0-2.1) Hep Bs Antigen Negative (NEGATIVE) Hep Bs Antibody (NEGATIVE) Hep B Core IgM Ab Negative (NEGATIVE) Blood Type Blood Type Confirm Antibody Screen Crossmatch BBK History Checked 07/28/17 07/28/17 07/28/17 Range/Units 18:55 18:40 17:40 WBC (4.8-10.8) K/uL RBC (4.40-5.90) Mil/uL Hgb (12.0-18.0) g/dL Hct (35.0-51.0) % MCV (80.0-94.0) fl MCH (27.0-31.0) pg MCHC (33.0-37.0) g/dL RDW (11.5-14.5) % Plt Count (130-400) K/uL MPV (7.2-11.7) fl Neut % (Auto) (50.0-75.0) % Lymph % (Auto) (20.0-40.0) % [place] % (Auto) (0.0-10.0) % Eos % (Auto) (0.0-4.0) % Baso % (Auto) (0.0-2.0) % Neut # (1.8-7.0) K/uL Lymph # (1.0-4.3) K/uL [place] # (0.0-0.8) K/uL Eos # (0.0-0.7) K/uL Baso # (0.0-0.2) K/uL Neutrophils % (Manual) (42-75) % Band Neutrophils % (0-2) % Lymphocytes % (Manual) (20-50) % Monocytes % (Manual) (0-10) % Eosinophils % (Manual) (0-7) % Basophils % (Manual) (0-2) % Platelet Estimate (NORMAL) Hypochromasia (manual) Poikilocytosis (manual Anisocytosis (manual) Microcytosis (manual) Target Cells Tear Drop Cells Acanthocytes (Spur) Schistocytes PT (9.8-13.1) Seconds INR (0.9-1.2) APTT (25.6-37.1) Seconds Sodium (132-148) mmol/l Potassium (3.6-5.0) MMOL/L Chloride (98-107) mmol/L Carbon Dioxide (22-30) mmol/L Anion Gap (10-20) BUN (9-20) mg/dl Creatinine (0.8-1.5) mg/dl Est GFR ( Amer) Est GFR (Non-Af Amer) Random Glucose (75-110) mg/dL Calcium (8.4-10.2) mg/dL Phosphorus (2.5-4.5) mg/dl Magnesium (1.6-2.3) MG/DL Total Bilirubin (0.2-1.3) mg/dl AST (17-59) U/L ALT (21-72) U/L Alkaline Phosphatase (38-126) U/L Troponin I 0.0700 (0.00-0.120) ng/mL Total Protein (6.3-8.2) G/DL Albumin (3.5-5.0) g/dL Globulin (2.2-3.9) gm/dL Albumin/Globulin Ratio (1.0-2.1) Hep Bs Antigen (NEGATIVE) Hep Bs Antibody (NEGATIVE) Hep B Core IgM Ab (NEGATIVE) Blood Type O POSITIVE Blood Type Confirm O POSITIVE Antibody Screen Negative Crossmatch See Detail BBK History Checked No verified bt 07/28/17 07/28/17 07/28/17 Range/Units 17:40 17:40 17:40 WBC 12.0 H (4.8-10.8) K/uL RBC 1.88 L (4.40-5.90) Mil/uL Hgb 4.5 L* (12.0-18.0) g/dL Hct 14.1 L (35.0-51.0) % MCV 75.4 L D (80.0-94.0) fl MCH 24.1 L (27.0-31.0) pg MCHC 31.9 L (33.0-37.0) g/dL RDW 23.4 H (11.5-14.5) % Plt Count 167 (130-400) K/uL MPV 10.7 (7.2-11.7) fl Neut % (Auto) 83.7 H (50.0-75.0) % Lymph % (Auto) 2.7 L (20.0-40.0) % [place] % (Auto) 3.5 (0.0-10.0) % Eos % (Auto) 0.1 (0.0-4.0) % Baso % (Auto) 10.0 H (0.0-2.0) % Neut # 10.1 H (1.8-7.0) K/uL Lymph # 0.3 L (1.0-4.3) K/uL [place] # 0.4 (0.0-0.8) K/uL Eos # 0.0 (0.0-0.7) K/uL Baso # 1.2 H (0.0-0.2) K/uL Neutrophils % (Manual) 86 H (42-75) % Band Neutrophils % 3 H (0-2) % Lymphocytes % (Manual) 5 L (20-50) % Monocytes % (Manual) 4 (0-10) % Eosinophils % (Manual) 1 (0-7) % Basophils % (Manual) 1 (0-2) % Platelet Estimate Normal (NORMAL) Hypochromasia (manual) Moderate Poikilocytosis (manual Moderate Anisocytosis (manual) Marked Microcytosis (manual) Moderate Target Cells Moderate Tear Drop Cells Slight Acanthocytes (Spur) Slight Schistocytes Slight PT 12.4 (9.8-13.1) Seconds INR 1.1 (0.9-1.2) APTT 32.3 (25.6-37.1) Seconds Sodium 136 (132-148) mmol/l Potassium 6.5 H* D (3.6-5.0) MMOL/L Chloride 102 (98-107) mmol/L Carbon Dioxide 9 L* D (22-30) mmol/L Anion Gap 32 H (10-20) BUN 158 H* D (9-20) mg/dl Creatinine 27.8 H* (0.8-1.5) mg/dl Est GFR ( Amer) 2 Est GFR (Non-Af Amer) 2 Random Glucose 119 H (75-110) mg/dL Calcium 5.4 L* D (8.4-10.2) mg/dL Phosphorus (2.5-4.5) mg/dl Magnesium (1.6-2.3) MG/DL Total Bilirubin 0.4 (0.2-1.3) mg/dl AST 46 (17-59) U/L ALT 51 (21-72) U/L Alkaline Phosphatase 56 (38-126) U/L Troponin I (0.00-0.120) ng/mL Total Protein 7.7 (6.3-8.2) G/DL Albumin 4.4 (3.5-5.0) g/dL Globulin 3.3 (2.2-3.9) gm/dL Albumin/Globulin Ratio 1.4 (1.0-2.1) Hep Bs Antigen (NEGATIVE) Hep Bs Antibody (NEGATIVE) Hep B Core IgM Ab (NEGATIVE) Blood Type Blood Type Confirm Antibody Screen Crossmatch BBK History Checked 07/28/17 Range/Units 06:15 WBC (4.8-10.8) K/uL RBC (4.40-5.90) Mil/uL Hgb (12.0-18.0) g/dL Hct (35.0-51.0) % MCV (80.0-94.0) fl MCH (27.0-31.0) pg MCHC (33.0-37.0) g/dL RDW (11.5-14.5) % Plt Count (130-400) K/uL MPV (7.2-11.7) fl Neut % (Auto) (50.0-75.0) % Lymph % (Auto) (20.0-40.0) % [place] % (Auto) (0.0-10.0) % Eos % (Auto) (0.0-4.0) % Baso % (Auto) (0.0-2.0) % Neut # (1.8-7.0) K/uL Lymph # (1.0-4.3) K/uL [place] # (0.0-0.8) K/uL Eos # (0.0-0.7) K/uL Baso # (0.0-0.2) K/uL Neutrophils % (Manual) (42-75) % Band Neutrophils % (0-2) % Lymphocytes % (Manual) (20-50) % Monocytes % (Manual) (0-10) % Eosinophils % (Manual) (0-7) % Basophils % (Manual) (0-2) % Platelet Estimate (NORMAL) Hypochromasia (manual) Poikilocytosis (manual Anisocytosis (manual) Microcytosis (manual) Target Cells Tear Drop Cells Acanthocytes (Spur) Schistocytes PT (9.8-13.1) Seconds INR (0.9-1.2) APTT (25.6-37.1) Seconds Sodium (132-148) mmol/l Potassium (3.6-5.0) MMOL/L Chloride (98-107) mmol/L Carbon Dioxide (22-30) mmol/L Anion Gap (10-20) BUN (9-20) mg/dl Creatinine (0.8-1.5) mg/dl Est GFR ( Amer) Est GFR (Non-Af Amer) Random Glucose (75-110) mg/dL Calcium (8.4-10.2) mg/dL Phosphorus (2.5-4.5) mg/dl Magnesium (1.6-2.3) MG/DL Total Bilirubin (0.2-1.3) mg/dl AST (17-59) U/L ALT (21-72) U/L Alkaline Phosphatase (38-126) U/L Troponin I (0.00-0.120) ng/mL Total Protein (6.3-8.2) G/DL Albumin (3.5-5.0) g/dL Globulin (2.2-3.9) gm/dL Albumin/Globulin Ratio (1.0-2.1) Hep Bs Antigen (NEGATIVE) Hep Bs Antibody Negative (NEGATIVE) Hep B Core IgM Ab (NEGATIVE) Blood Type Blood Type Confirm Antibody Screen Crossmatch BBK History Checked Laboratory Results - last 24 hr 07/28/17 07/28/17 07/28/17 06:15 17:40 17:40 WBC 12.0 H RBC 1.88 L Hgb 4.5 L* Hct 14.1 L MCV 75.4 L D MCH 24.1 L MCHC 31.9 L RDW 23.4 H Plt Count 167 MPV 10.7 Neut % (Auto) 83.7 H Lymph % (Auto) 2.7 L [place] % (Auto) 3.5 Eos % (Auto) 0.1 Baso % (Auto) 10.0 H Neut # 10.1 H Lymph # 0.3 L [place] # 0.4 Eos # 0.0 Baso # 1.2 H Neutrophils % (Manual) 86 H Band Neutrophils % 3 H Lymphocytes % (Manual) 5 L Monocytes % (Manual) 4 Eosinophils % (Manual) 1 Basophils % (Manual) 1 Platelet Estimate Normal Hypochromasia (manual) Moderate Poikilocytosis (manual Moderate Anisocytosis (manual) Marked Microcytosis (manual) Moderate Target Cells Moderate Tear Drop Cells Slight Acanthocytes (Spur) Slight Schistocytes Slight PT INR APTT Sodium 136 Potassium 6.5 H* D Chloride 102 Carbon Dioxide 9 L* D Anion Gap 32 H BUN 158 H* D Creatinine 27.8 H* Est GFR ( Amer) 2 Est GFR (Non-Af Amer) 2 Random Glucose 119 H Calcium 5.4 L* D Phosphorus Magnesium Total Bilirubin 0.4 AST 46 ALT 51 Alkaline Phosphatase 56 Troponin I Total Protein 7.7 Albumin 4.4 Globulin 3.3 Albumin/Globulin Ratio 1.4 Hep Bs Antigen Hep Bs Antibody Negative Hep B Core IgM Ab Blood Type Blood Type Confirm Antibody Screen Crossmatch BBK History Checked 07/28/17 07/28/17 07/28/17 17:40 17:40 18:40 WBC RBC Hgb Hct MCV MCH MCHC RDW Plt Count MPV Neut % (Auto) Lymph % (Auto) [place] % (Auto) Eos % (Auto) Baso % (Auto) Neut # Lymph # [place] # Eos # Baso # Neutrophils % (Manual) Band Neutrophils % Lymphocytes % (Manual) Monocytes % (Manual) Eosinophils % (Manual) Basophils % (Manual) Platelet Estimate Hypochromasia (manual) Poikilocytosis (manual Anisocytosis (manual) Microcytosis (manual) Target Cells Tear Drop Cells Acanthocytes (Spur) Schistocytes PT 12.4 INR 1.1 APTT 32.3 Sodium Potassium Chloride Carbon Dioxide Anion Gap BUN Creatinine Est GFR ( Amer) Est GFR (Non-Af Amer) Random Glucose Calcium Phosphorus Magnesium Total Bilirubin AST ALT Alkaline Phosphatase Troponin I 0.0700 Total Protein Albumin Globulin Albumin/Globulin Ratio Hep Bs Antigen Hep Bs Antibody Hep B Core IgM Ab Blood Type O POSITIVE Blood Type Confirm Antibody Screen Negative Crossmatch See Detail BBK History Checked No verified bt 07/28/17 07/28/17 07/29/17 18:55 23:23 06:15 WBC 13.0 H RBC 2.48 L Hgb 6.5 L* D Hct 19.6 L MCV 79.2 L D MCH 26.3 L MCHC 33.2 RDW 22.3 H Plt Count 143 MPV Neut % (Auto) Lymph % (Auto) [place] % (Auto) Eos % (Auto) Baso % (Auto) Neut # Lymph # [place] # Eos # Baso # Neutrophils % (Manual) Band Neutrophils % Lymphocytes % (Manual) Monocytes % (Manual) Eosinophils % (Manual) Basophils % (Manual) Platelet Estimate Hypochromasia (manual) Poikilocytosis (manual Anisocytosis (manual) Microcytosis (manual) Target Cells Tear Drop Cells Acanthocytes (Spur) Schistocytes PT INR APTT Sodium Potassium Chloride Carbon Dioxide Anion Gap BUN Creatinine Est GFR ( Amer) Est GFR (Non-Af Amer) Random Glucose Calcium Phosphorus Magnesium Total Bilirubin AST ALT Alkaline Phosphatase Troponin I Total Protein Albumin Globulin Albumin/Globulin Ratio Hep Bs Antigen Negative Hep Bs Antibody Hep B Core IgM Ab Negative Blood Type Blood Type Confirm O POSITIVE Antibody Screen Crossmatch BBK History Checked 07/29/17 06:15 WBC RBC Hgb Hct MCV MCH MCHC RDW Plt Count MPV Neut % (Auto) Lymph % (Auto) [place] % (Auto) Eos % (Auto) Baso % (Auto) Neut # Lymph # [place] # Eos # Baso # Neutrophils % (Manual) Band Neutrophils % Lymphocytes % (Manual) Monocytes % (Manual) Eosinophils % (Manual) Basophils % (Manual) Platelet Estimate Hypochromasia (manual) Poikilocytosis (manual Anisocytosis (manual) Microcytosis (manual) Target Cells Tear Drop Cells Acanthocytes (Spur) Schistocytes PT INR APTT Sodium 138 Potassium 4.2 Chloride 100 Carbon Dioxide 15 L Anion Gap 28 H BUN 119 H* D Creatinine 21.6 H* D Est GFR ( Amer) 3 Est GFR (Non-Af Amer) 2 Random Glucose 112 H Calcium 6.2 L Phosphorus 9.4 H Magnesium 1.5 L Total Bilirubin 0.4 AST 42 ALT 44 Alkaline Phosphatase 57 Troponin I Total Protein 7.4 Albumin 4.3 Globulin 3.1 Albumin/Globulin Ratio 1.4 Hep Bs Antigen Hep Bs Antibody Hep B Core IgM Ab Blood Type Blood Type Confirm Antibody Screen Crossmatch BBK History Checked Review of Systems - Review of Systems All systems: reviewed and no additional remarkable complaints except (as above) Critical Care Progress Note - Nutrition Nutrition: Nutrition Category Date Time Status Renal Diet [DIET] Diets 07/29/17 Breakfast Active
[2017-07-30] MEDS: Fluticasone-Salmeterol 500-50mcg Diskus IH SCH ×2 (05:36→16:34)
[2017-07-30 05:56] LABS: HEMATOCRIT 22.8 % (35.0-51.0); MEAN CELL VOLUME 80.1 fl (80.0-94.0); MEAN CORPUSCULAR HEMOGLOBIN 26.1 pg (27.0-31.0); MEAN CORPUSCULAR HGB CONC 32.6 g/dL (33.0-37.0); RED CELL DISTRIBUTION WIDTH 19.1 % (11.5-14.5); WHITE BLOOD COUNT 12.3 K/uL (4.8-10.8)
[2017-07-30 06:45] LABS: CALCIUM 6.4 mg/dL (8.4-10.2); POTASSIUM 3.7 MMOL/L (3.6-5.0)
--- NOTE | 2017-07-30 08:42 | CP.PCM.PN ---
Subjective - Date & Time of Evaluation Date of Evaluation: 07/30/17 Time of Evaluation: 08:42 - Subjective Subjective: dictated Objective - Vital Signs/Intake and Output Vital Signs (last 24 hours): Temp Pulse Resp BP Pulse Ox 99.2 F 105 H 15 123/80 100 07/30/17 08:00 07/30/17 08:00 07/30/17 08:00 07/30/17 08:00 07/30/17 08:00 - Medications Medications: Current Medications Albuterol/Ipratropium (Duoneb 3 Mg/0.5 Mg (3 Ml) Ud) 3 ml IH Q8H PRN PRN Reason: Shortness of Breath Allopurinol (Zyloprim) 100 mg PO DAILY [facility] Last Admin: 07/29/17 09:15 Dose: 100 mg Amlodipine Besylate (Norvasc) 10 mg PO DAILY [facility] Last Admin: 07/29/17 17:11 Dose: Not Given Calcium Acetate (Phoslo) 2,001 mg PO TID [facility] Clonidine HCl (Catapres) 0.3 mg PO TID [facility] Last Admin: 07/29/17 17:10 Dose: Not Given Enalapril Maleate (Vasotec) 20 mg PO BID [facility] Epoetin Helder (Procrit) 8,000 unit IV TTS [facility] Hydralazine HCl (Apresoline) 50 mg PO BID [facility] Hydralazine HCl (Apresoline) 10 mg IV Q6 [facility] Last Admin: 07/30/17 05:35 Dose: 10 mg Hydromorphone HCl (Dilaudid) 1 mg IVP Q4 PRN PRN Reason: Pain, severe (8-10) Last Admin: 07/29/17 21:27 Dose: 1 mg Hydromorphone HCl (Dilaudid) 0.5 mg IVP Q4H PRN PRN Reason: Pain, moderate (4-7) Stop: 07/31/17 05:19 Minoxidil (Minoxidil) 2.5 mg PO BID [facility] Last Admin: 07/29/17 17:11 Dose: Not Given Ondansetron HCl (Zofran Inj) 4 mg IVP Q4 PRN PRN Reason: Nausea/Vomiting Last Admin: 07/29/17 09:15 Dose: 4 mg Fluticasone/Salmeterol (Advair Diskus 500/50) 1 puff IH Q12H JUAN DAVID Last Admin: 07/30/17 05:36 Dose: 1 puff - Labs Labs: 07/30/17 05:49 07/30/17 05:49 PT 12.4 Seconds (9.8-13.1) 07/28/17 17:40 INR 1.1 (0.9-1.2) 07/28/17 17:40 APTT 32.3 Seconds (25.6-37.1) 07/28/17 17:40
--- NOTE | 2017-07-30 08:48 | CP.PCM.PN ---
Subjective - Date & Time of Evaluation Date of Evaluation: 07/30/17 Time of Evaluation: 08:48 - Subjective Subjective: dictated Objective - Vital Signs/Intake and Output Vital Signs (last 24 hours): Temp Pulse Resp BP Pulse Ox 99.2 F 105 H 15 123/80 100 07/30/17 08:00 07/30/17 08:00 07/30/17 08:00 07/30/17 08:00 07/30/17 08:00 - Medications Medications: Current Medications Albuterol/Ipratropium (Duoneb 3 Mg/0.5 Mg (3 Ml) Ud) 3 ml IH Q8H PRN PRN Reason: Shortness of Breath Allopurinol (Zyloprim) 100 mg PO DAILY [facility] Last Admin: 07/29/17 09:15 Dose: 100 mg Amlodipine Besylate (Norvasc) 10 mg PO DAILY [facility] Last Admin: 07/29/17 17:11 Dose: Not Given Calcium Acetate (Phoslo) 2,001 mg PO TID [facility] Clonidine HCl (Catapres) 0.3 mg PO TID [facility] Last Admin: 07/29/17 17:10 Dose: Not Given Enalapril Maleate (Vasotec) 20 mg PO BID [facility] Epoetin Helder (Procrit) 8,000 unit IV TTS [facility] Hydralazine HCl (Apresoline) 50 mg PO BID [facility] Hydralazine HCl (Apresoline) 10 mg IV Q6 [facility] Last Admin: 07/30/17 05:35 Dose: 10 mg Hydromorphone HCl (Dilaudid) 1 mg IVP Q4 PRN PRN Reason: Pain, severe (8-10) Last Admin: 07/29/17 21:27 Dose: 1 mg Hydromorphone HCl (Dilaudid) 0.5 mg IVP Q4H PRN PRN Reason: Pain, moderate (4-7) Stop: 07/31/17 05:19 Minoxidil (Minoxidil) 2.5 mg PO BID [facility] Last Admin: 07/29/17 17:11 Dose: Not Given Ondansetron HCl (Zofran Inj) 4 mg IVP Q4 PRN PRN Reason: Nausea/Vomiting Last Admin: 07/29/17 09:15 Dose: 4 mg Fluticasone/Salmeterol (Advair Diskus 500/50) 1 puff IH Q12H [facility] Last Admin: 07/30/17 05:36 Dose: 1 puff - Labs Labs: 07/30/17 05:49 07/30/17 05:49 PT 12.4 Seconds (9.8-13.1) 07/28/17 17:40 INR 1.1 (0.9-1.2) 07/28/17 17:40 APTT 32.3 Seconds (25.6-37.1) 07/28/17 17:40
[2017-07-30] MEDS ORDERED: Epoetin Alfa 20000 UNIT/ML Inj IV SCH (09:00)
[2017-07-30] MEDS: Calcium Acetate 667 MG Capsule PO SCH ×3 (12:09→16:34)
[2017-07-30 14:18] LABS: RBC URINE 5 /hpf (0-3); URINE BACTERIA RARE (<OCC); URINE BILIRUBIN NEGATIVE (NEGATIVE); URINE BLOOD MODERATE (NEGATIVE); URINE COLOR YELLOW (YELLOW); URINE GLUCOSE (UA) 50 mg/dL (Normal); URINE KETONE NEGATIVE (NEGATIVE); URINE LEUKOCYTE ESTERASE TRACE Leu/uL (Negative); URINE PROTEIN >=500 mg/dL (NEGATIVE); URINE UROBILINOGEN 0.2-1.0 mg/dL (0.2-1.0); WBC URINE 11 /hpf (0-5)
[2017-07-30 14:25] LABS: CREATININE, RANDOM URINE 93.5 mg/dL
--- NOTE | 2017-07-30 15:26 | CP.PCM.PN ---
Subjective - Date & Time of Evaluation Date of Evaluation: 07/30/17 Time of Evaluation: 12:00 - Subjective Subjective: F/U Chest pain. No SOB, no chest pain. Objective - Vital Signs/Intake and Output Vital Signs (last 24 hours): Temp Pulse Resp BP Pulse Ox 99.4 F 115 H 19 103/77 97 07/30/17 14:01 07/30/17 14:42 07/30/17 14:01 07/30/17 14:01 07/30/17 14:01 Intake and Output: 07/30/17 07/30/17 06:59 18:59 Intake Total 360 Output Total 250 Balance 110 - Medications Medications: Current Medications Albuterol/Ipratropium (Duoneb 3 Mg/0.5 Mg (3 Ml) Ud) 3 ml IH Q8H PRN PRN Reason: Shortness of Breath Allopurinol (Zyloprim) 100 mg PO DAILY [facility] Last Admin: 07/30/17 09:10 Dose: 100 mg Amlodipine Besylate (Norvasc) 10 mg PO DAILY [facility] Last Admin: 07/30/17 09:11 Dose: 10 mg Calcium Acetate (Phoslo) 2,001 mg PO TID [facility] Last Admin: 07/30/17 12:11 Dose: 2,001 mg Clonidine HCl (Catapres) 0.3 mg PO TID [facility] Last Admin: 07/30/17 12:11 Dose: 0.3 mg Enalapril Maleate (Vasotec) 20 mg PO BID [facility] Epoetin Helder (Procrit) 8,000 unit IV TTS [facility] Hydralazine HCl (Apresoline) 50 mg PO BID [facility] Hydralazine HCl (Apresoline) 10 mg IV Q6 [facility] Last Admin: 07/30/17 09:09 Dose: 10 mg Hydromorphone HCl (Dilaudid) 1 mg IVP Q4 PRN PRN Reason: Pain, severe (8-10) Last Admin: 07/29/17 21:27 Dose: 1 mg Hydromorphone HCl (Dilaudid) 0.5 mg IVP Q4H PRN PRN Reason: Pain, moderate (4-7) Stop: 07/31/17 05:19 Minoxidil (Minoxidil) 2.5 mg PO BID [facility] Last Admin: 11/16/17 09:10 Dose: 2.5 mg Ondansetron HCl (Zofran Inj) 4 mg IVP Q4 PRN PRN Reason: Nausea/Vomiting Last Admin: 07/29/17 09:15 Dose: 4 mg Fluticasone/Salmeterol (Advair Diskus 500/50) 1 puff IH Q12H JUAN DAVID Last Admin: 07/30/17 05:36 Dose: 1 puff - Labs Labs: 07/30/17 05:49 07/30/17 05:49 PT 12.4 Seconds (9.8-13.1) 07/28/17 17:40 INR 1.1 (0.9-1.2) 07/28/17 17:40 APTT 32.3 Seconds (25.6-37.1) 07/28/17 17:40 - Constitutional Appears: No Acute Distress - Head Exam Head Exam: NORMAL INSPECTION - Eye Exam Eye Exam: PERRL - ENT Exam ENT Exam: Normal Exam - Neck Exam Neck Exam: Normal Inspection - Respiratory Exam Respiratory Exam: Decreased Breath Sounds (at bases), Rhonchi - Cardiovascular Exam Cardiovascular Exam: Tachycardia - GI/Abdominal Exam GI & Abdominal Exam: Soft, Normal Bowel Sounds - Extremities Exam Additional comments: Edema 2+ BLE, swelling BLE. Pedal pulse 2+. - Back Exam Back Exam: NORMAL INSPECTION - Neurological Exam Neurological Exam: Alert, Oriented x3. absent: Motor Sensory Deficit - Psychiatric Exam Psychiatric exam: Normal Mood - Skin Skin Exam: Warm Assessment and Plan (1) Chest pain Status: Acute (2) Hyperkalemia Status: Acute (3) Chronic kidney disease, stage IV (severe) Status: Acute (4) [id number] renal failure Status: Acute (5) Hypertensive renal disease Status: Chronic (6) Uncontrolled hypertension Status: Acute (7) Back pain Status: Chronic (8) Weakness Status: Chronic - Assessment and Plan (Free Text) Plan: HD today, continue BP mediations and rest of Tx.
--- NOTE | 2017-07-30 16:01 | PN ---
DATE: SUBJECTIVE: The patient remains in the Intensive Care Unit. He is in bed, feeling much better, less shortness of breath, and his mind getting much better as he said. PHYSICAL EXAMINATION: VITAL SIGNS: His blood pressure has come down to 123/80 this morning, pulse 105, and temperature 99.2. NECK: Supple. CHEST: A few rhonchi in the lower lung ferrari. HEART: He appeared to have S3 gallop, perhaps. ABDOMEN: Soft. Bowel sounds were active. EXTREMITIES: Still have trace to 1+ edema. LABORATORY DATA: Creatinine has come down from initially 27.8 to 14.8 after completing dialysis yesterday and the day before. The rest of the electrolytes are acceptable. His phosphorous 9.4, magnesium 1.5. Hemoglobin, the latest 7.5 after receiving several units of blood transfusion. IMPRESSION AND PLAN: 1. The patient with end-stage renal disease, right now, admitted with severe uremia and hyperkalemia, which has been improving after 2 sessions of hemodialysis and he is going to have another hemodialysis today shortly. 2. Hyperphosphatemia: The patient is started on a calcium binder. 3. Hypocalcemia: The patient is also receiving calcium acetate for that purpose as well. 4. Severe anemia: The patient needs more blood transfusion today. 5. Metabolic acidosis has been corrected, and arrangement for dialysis has been done to be completed, order was given, and suggested to do echocardiogram and to do venous mapping of the upper extremities. The patient needs an arteriovenous fistula and have social sciences professor to see the patient for outpatient arrangement for dialysis. Hilario Walters MD
--- NOTE | 2017-07-30 16:21 | CON ---
HISTORY OF PRESENT ILLNESS: Mr. Sampson who is 47 years of age, known to me with history of chronic kidney disease stage IV. He has been followed up in the office for a period of time, then he disappeared for about 9 months ago. He did not show up and then he came to the emergency room last night complaining of tiredness, weakness and he was found to have extremely abnormal blood tests including BUN 158, creatinine 27.8, potassium 6.5, carbon dioxide 9.0 and hemoglobin 4.5 for which the patient was uremic and emergent hemodialysis required to be done in the Intensive Care Unit and also given blood transfusion last night. Also, given additional 2 units of packed cell this morning. The patient is seen on hemodialysis again now this afternoon and he was given 2 units, just about completed almost. This patient has past medical history significant to chronic kidney disease with severe hypertension. He has been taking multiple medications, but he disappeared from the followup. Also, history of asthma, depression and in addition to the hypertension as noted. PAST MEDICAL HISTORY: As noted above. SOCIAL HISTORY: As noted. No drinking to any significant extent, but psychologically he is in denial. REVIEW OF SYSTEMS: The patient nauseous, but no significant vomiting. The patient in denial for his kidney disease. Also, the patient has refused to have AV access in the past because he disappeared completely from the followup. PHYSICAL EXAMINATION: VITAL SIGNS: Blood pressure on admission was very high, 173/110 and he was given some medication and acute dialysis, this morning 153/104, pulse 107, temperature 98.9. NECK: Supple. CHEST: Showed rhonchi and rales in the middle lung. HEART: No rubs could be appreciated. ABDOMEN: Soft. Bowel sounds were active. EXTREMITIES: He has 1+ pitting edema. LABORATORY DATA: The lab data for today, hemoglobin 6.5 before 2 units of packed cells and that was after some transfusion given overnight. The chemistry: Creatinine came down from 27.8 to 21.6 after short session of hemodialysis last night, BUN 119, CO2 is still 15, came up from 9.0. IMPRESSION: 1. The patient has stage V requiring chronic dialysis. He is having dialysis last night and is having dialysis right now. 2. Hyperkalemia. 3. Metabolic acidosis. 4. I am predicting to have hyperphosphatemia. His phosphorus just reported to me 9.4. PTH still pending. I am predicting to have secondary hyperparathyroidism and of course anemia. PLAN: As planned with the dialysis. Hilario Walters MD
[2017-07-31] MEDS: Fluticasone-Salmeterol 500-50mcg Diskus IH SCH ×2 (05:37→17:51)
--- NOTE | 2017-07-31 13:04 | CP.PCM.PN ---
Subjective - Date & Time of Evaluation Date of Evaluation: 07/31/17 Time of Evaluation: 11:50 - Subjective Subjective: F/U Chest pain Pt with no SOB, no chest pain. Objective - Vital Signs/Intake and Output Vital Signs (last 24 hours): Temp Pulse Resp BP Pulse Ox 98.7 F 101 H 18 145/85 97 07/31/17 12:00 07/31/17 12:00 07/31/17 12:00 07/31/17 12:00 07/31/17 12:00 - Medications Medications: Current Medications Albuterol/Ipratropium (Duoneb 3 Mg/0.5 Mg (3 Ml) Ud) 3 ml IH Q8H PRN PRN Reason: Shortness of Breath Allopurinol (Zyloprim) 100 mg PO DAILY [facility] Last Admin: 07/31/17 09:03 Dose: 100 mg Amlodipine Besylate (Norvasc) 10 mg PO DAILY [facility] Last Admin: 07/31/17 09:04 Dose: 10 mg Calcium Acetate (Phoslo) 2,001 mg PO TID [facility] Last Admin: 07/31/17 09:16 Dose: 2,001 mg Clonidine HCl (Catapres) 0.3 mg PO TID [facility] Last Admin: 07/31/17 09:04 Dose: 0.3 mg Enalapril Maleate (Vasotec) 20 mg PO BID [facility] Epoetin Helder (Procrit) 8,000 unit IV TTS [facility] Hydralazine HCl (Apresoline) 50 mg PO BID [facility] Hydromorphone HCl (Dilaudid) 1 mg IVP Q4 PRN PRN Reason: Pain, severe (8-10) Last Admin: 07/30/17 21:55 Dose: 1 mg Minoxidil (Minoxidil) 2.5 mg PO BID [facility] Last Admin: 07/31/17 09:04 Dose: 2.5 mg Ondansetron HCl (Zofran Inj) 4 mg IVP Q4 PRN PRN Reason: Nausea/Vomiting Last Admin: 07/29/17 09:15 Dose: 4 mg Fluticasone/Salmeterol (Advair Diskus 500/50) 1 puff IH Q12H [facility] Last Admin: 07/31/17 05:37 Dose: 1 puff - Labs Labs: 07/30/17 05:49 07/30/17 05:49 PT 12.4 Seconds (9.8-13.1) 07/28/17 17:40 INR 1.1 (0.9-1.2) 07/28/17 17:40 APTT 32.3 Seconds (25.6-37.1) 07/28/17 17:40 - Constitutional Appears: No Acute Distress - Head Exam Head Exam: NORMAL INSPECTION - Eye Exam Eye Exam: PERRL - ENT Exam ENT Exam: Normal Exam - Neck Exam Neck Exam: Normal Inspection - Respiratory Exam Respiratory Exam: Decreased Breath Sounds (at bases), Rhonchi (scattered) - Cardiovascular Exam Cardiovascular Exam: Tachycardia - GI/Abdominal Exam GI & Abdominal Exam: Soft, Normal Bowel Sounds - Extremities Exam Additional comments: Edema 2+ BLE, swelling BLE, pedal pulse 2+ - Back Exam Back Exam: NORMAL INSPECTION - Neurological Exam Neurological Exam: Alert, Oriented x3. absent: Motor Sensory Deficit - Psychiatric Exam Psychiatric exam: Normal Mood - Skin Skin Exam: Warm Assessment and Plan (1) Chest pain Status: Acute (2) Hyperkalemia Status: Acute (3) Chronic kidney disease, stage IV (severe) Status: Acute (4) [id number] renal failure Status: Acute (5) Hypertensive renal disease Status: Chronic (6) Uncontrolled hypertension Status: Acute (7) Back pain Status: Chronic (8) Weakness Status: Chronic - Assessment and Plan (Free Text) Plan: Hgb today 6.9, Pt had 2 U PRBC transfused, Continue BP medications and rest of Tx.
--- NOTE | 2017-07-31 14:06 | CP.PCM.CON ---
History of Present Illness - History of Present Illness History of Present Illness: Vascular Surgery Dr. Jones 47 y/o M presented to the ED c/o chest pain x 2days. Pain has been worsening in intensity. In the field, EMS administered ASA and nitro spray w/ no relief of the pain. Pain is exacerbated by mvt and laying flat. In the ED, pt was found to be in acute renal failure. Shiley catheter was placed at that time for emergent dialysis. Catheter is functioning appropriately. Surgery is consulted for creation of AVF for permanent dialysis access. Pt currently admits to CP at night, intermitted SOB, and diarrhea. Pt denies F/C, N/V, diarrhea. PMHx: medical non-compliance, HTN, Asthma, CKD IV, herniated disks, anemia Meds: reviewed in the chart NKDA PSHx: (R) femoral Shiley catheter placement SHx: (+)tobacco use, (-)EtOH, drug use FHx: non-contributory Review of Systems - Review of Systems All systems: reviewed and no additional remarkable complaints except (see HPI) Past Patient History - Past Medical History & Family History Past Medical History?: Yes - Past Social History Smoking Status: Current Some Days Smoker Alcohol: None Drugs: Denies Home Situation {Lives}: With Family - CARDIAC Hx Cardiac Disorders: Yes Hx Hypertension: Yes - PULMONARY Hx Respiratory Disorders: Yes Hx Asthma: Yes - NEUROLOGICAL Hx Neurological Disorder: No - HEENT Hx HEENT Problems: No - RENAL Hx Chronic Kidney Disease: Yes - ENDOCRINE/METABOLIC Hx Endocrine Disorders: No - HEMATOLOGICAL/ONCOLOGICAL Hx Blood Disorders: Yes Hx Anemia: Yes Hx Blood Transfusions: No - INTEGUMENTARY Hx Dermatological Problems: No - MUSCULOSKELETAL/RHEUMATOLOGICAL Hx Musculoskeletal Disorders: Yes Hx Back Pain: Yes Hx Falls: No Hx Herniated Disk: Yes Hx Unsteady Gait: Yes - GASTROINTESTINAL Hx Gastrointestinal Disorders: No - GENITOURINARY/GYNECOLOGICAL Hx Genitourinary Disorders: No - PSYCHIATRIC Hx Psychophysiologic Disorder: Yes Hx Depression: Yes (per old record, but pt does not take meds) - SURGICAL HISTORY Hx Surgeries: No - ANESTHESIA Hx Anesthesia: No Hx Anesthesia Reactions: No Hx Malignant Hyperthermia: No Has any member of the family had a problem w/ anesthesia?: No Meds Allergies/Adverse Reactions: Allergies Allergy/AdvReac Type Severity Reaction Status Date / Time No Known Allergies Allergy Verified 07/28/17 15:35 - Medications Medications: Current Medications Albuterol/Ipratropium (Duoneb 3 Mg/0.5 Mg (3 Ml) Ud) 3 ml IH Q8H PRN PRN Reason: Shortness of Breath Allopurinol (Zyloprim) 100 mg PO DAILY [facility] Last Admin: 07/31/17 09:03 Dose: 100 mg Amlodipine Besylate (Norvasc) 10 mg PO DAILY [facility] Last Admin: 07/31/17 09:04 Dose: 10 mg Calcium Acetate (Phoslo) 2,001 mg PO TID [facility] Last Admin: 07/31/17 09:16 Dose: 2,001 mg Clonidine HCl (Catapres) 0.3 mg PO TID [facility] Last Admin: 07/31/17 09:04 Dose: 0.3 mg Enalapril Maleate (Vasotec) 20 mg PO BID [facility] Epoetin Helder (Procrit) 8,000 unit IV TTS [facility] Hydralazine HCl (Apresoline) 50 mg PO BID [facility] Hydromorphone HCl (Dilaudid) 1 mg IVP Q4 PRN PRN Reason: Pain, severe (8-10) Last Admin: 07/30/17 21:55 Dose: 1 mg Minoxidil (Minoxidil) 2.5 mg PO BID [facility] Last Admin: 07/31/17 09:04 Dose: 2.5 mg Ondansetron HCl (Zofran Inj) 4 mg IVP Q4 PRN PRN Reason: Nausea/Vomiting Last Admin: 07/29/17 09:15 Dose: 4 mg Fluticasone/Salmeterol (Advair Diskus 500/50) 1 puff IH Q12H [facility] Last Admin: 07/31/17 05:37 Dose: 1 puff Physical Exam - Constitutional Appears: Non-toxic, No Acute Distress - Head Exam Head Exam: NORMAL INSPECTION - Eye Exam Eye Exam: Normal appearance - ENT Exam ENT Exam: Mucous Membranes Moist - Respiratory Exam Respiratory Exam: NORMAL BREATHING PATTERN. absent: Accessory Muscle Use, Respiratory Distress - Cardiovascular Exam Cardiovascular Exam: Tachycardia, REGULAR RHYTHM - GI/Abdominal Exam GI & Abdominal Exam: Soft. absent: Distended, Tenderness - Extremities Exam Extremities exam: Positive for: normal inspection Additional comments: Shiley catheter in place dressing c/d/i - Neurological Exam Neurological exam: Alert, Oriented x3 - Psychiatric Exam Psychiatric exam: Normal Affect, Normal Mood - Skin Skin Exam: Dry, Intact, Normal Color, Warm Results - Vital Signs Recent Vital Signs: Last Vital Signs Temp 98.7 F 07/31/17 12:00 Pulse 101 H 07/31/17 12:00 Resp 18 07/31/17 12:00 BP 145/85 07/31/17 12:00 Pulse Ox 97 07/31/17 12:00 - Labs Result Diagrams: 07/30/17 05:49 07/30/17 05:49 Labs: Laboratory Results - last 24 hr 07/30/17 07/30/17 13:32 13:32 Urine Color Yellow Urine Clarity Slighty-cloudy Urine pH 6.0 Ur Specific [place] 1.010 Urine Protein >=500 Urine Glucose (UA) 50 Urine Ketones Negative Urine Blood Moderate Urine Nitrate Negative Urine Bilirubin Negative Urine Urobilinogen 0.2-1.0 Ur Leukocyte Esterase Trace Urine RBC (Auto) 5 H Urine Microscopic WBC 11 H Amorphous Sediment Rare H Urine Bacteria Rare Ur Random Creatinine 93.5 U Random Total Protein 748.0 H Assessment & Plan - Assessment and Plan (Free Text) Assessment: 47 y/o M w/ ESRD requiring hemodialysis - f/u vein mapping - change dialysis site dressing - cont medical management - likely placement of permacath and AVF next week. Pt discussed w/ Dr. Karen Robertson DO PGY2
--- NOTE | 2017-07-31 14:59 | CP.PCM.PN ---
Subjective - Date & Time of Evaluation Date of Evaluation: 07/31/17 Time of Evaluation: 14:57 - Subjective Subjective: Patient doing much better. Appetite is good No vomiting Less shortness of breath Blood pressure better controlled. Objective - Vital Signs/Intake and Output Vital Signs (last 24 hours): Temp Pulse Resp BP Pulse Ox 98.7 F 101 H 18 145/85 97 07/31/17 12:00 07/31/17 12:00 07/31/17 12:00 07/31/17 12:00 07/31/17 12:00 - Medications Medications: Current Medications Albuterol/Ipratropium (Duoneb 3 Mg/0.5 Mg (3 Ml) Ud) 3 ml IH Q8H PRN PRN Reason: Shortness of Breath Allopurinol (Zyloprim) 100 mg PO DAILY [facility] Last Admin: 07/31/17 09:03 Dose: 100 mg Amlodipine Besylate (Norvasc) 10 mg PO DAILY [facility] Last Admin: 07/31/17 09:04 Dose: 10 mg Calcium Acetate (Phoslo) 2,001 mg PO TID [facility] Last Admin: 07/31/17 09:16 Dose: 2,001 mg Clonidine HCl (Catapres) 0.3 mg PO TID [facility] Last Admin: 07/31/17 09:04 Dose: 0.3 mg Enalapril Maleate (Vasotec) 20 mg PO BID [facility] Epoetin Helder (Procrit) 8,000 unit IV TTS [facility] Hydralazine HCl (Apresoline) 50 mg PO BID [facility] Hydromorphone HCl (Dilaudid) 1 mg IVP Q4 PRN PRN Reason: Pain, severe (8-10) Last Admin: 07/30/17 21:55 Dose: 1 mg Iron Sucrose 100 mg/ Sodium (Chloride) 105 mls @ 105 mls/hr IVPB MWF ONE Stop: 08/01/17 15:53 Minoxidil (Minoxidil) 2.5 mg PO BID [facility] Last Admin: 07/31/17 09:04 Dose: 2.5 mg Ondansetron HCl (Zofran Inj) 4 mg IVP Q4 PRN PRN Reason: Nausea/Vomiting Last Admin: 07/29/17 09:15 Dose: 4 mg Fluticasone/Salmeterol (Advair Diskus 500/50) 1 puff IH Q12H [facility] Last Admin: 07/31/17 05:37 Dose: 1 puff - Labs Labs: 07/30/17 05:49 07/30/17 05:49 PT 12.4 Seconds (9.8-13.1) 07/28/17 17:40 INR 1.1 (0.9-1.2) 07/28/17 17:40 APTT 32.3 Seconds (25.6-37.1) 07/28/17 17:40 - Constitutional Appears: No Acute Distress - ENT Exam ENT Exam: Mucous Membranes Moist - Respiratory Exam Respiratory Exam: absent: Chest Wall Tenderness - Cardiovascular Exam Cardiovascular Exam: REGULAR RHYTHM. absent: Rubs - GI/Abdominal Exam GI & Abdominal Exam: Soft, Normal Bowel Sounds - Extremities Exam Extremities Exam: absent: Calf Tenderness - Back Exam Back Exam: absent: CVA tenderness (L), CVA tenderness (R) - Neurological Exam Neurological Exam: Alert - Psychiatric Exam Psychiatric exam: Normal Affect - Skin Skin Exam: absent: Cyanosis Assessment and Plan (1) Chronic kidney disease, stage V Assessment & Plan: Patient with end stage renal disease he received 3 dialysis [id number]. And is scheduled to have dialysis tomorrow and he continued to improve. Etiology is related to hypertension. Medical problem Hypertension which is better controlled. Hyperphosphatemia started on binders Secondary hyperparathyroidism still pending. Severe anemia requiring multiple blood transfusions. Started on Venofer and EPO. Patient going for venous mapping and also he needs AV fistula please call vascular I discussed with the nurse practitioner. He may need 1 more unit of blood transfusion. Status: Acute
[2017-07-31 15:46] LABS: HEMATOCRIT 21.3 % (35.0-51.0); MEAN CELL VOLUME 80.2 fl (80.0-94.0); MEAN CORPUSCULAR HGB CONC 32.4 g/dL (33.0-37.0); WHITE BLOOD COUNT 11.5 K/uL (4.8-10.8)
[2017-07-31 16:15] LABS: CALCIUM 6.7 mg/dL (8.4-10.2); POTASSIUM 3.9 MMOL/L (3.6-5.0)
[2017-07-31 22:48] LABS: IRON 62 ug/dL (49-181)
[2017-08-01] MEDS: Fluticasone-Salmeterol 500-50mcg Diskus IH SCH ×2 (04:45→16:25)
--- NOTE | 2017-08-01 10:37 | CP.PCM.PN ---
Subjective - Date & Time of Evaluation Date of Evaluation: 08/01/17 Time of Evaluation: 10:35 - Subjective Subjective: seen and examined + emesis and nausea this am Objective - Vital Signs/Intake and Output Vital Signs (last 24 hours): Temp Pulse Resp BP Pulse Ox 97.9 F 114 H 18 183/124 H 100 08/01/17 08:12 08/01/17 08:12 08/01/17 08:12 08/01/17 08:12 08/01/17 08:12 Intake and Output: 08/01/17 08/01/17 06:59 18:59 Intake Total 940 Output Total 100 Balance 840 - Medications Medications: Current Medications Albuterol/Ipratropium (Duoneb 3 Mg/0.5 Mg (3 Ml) Ud) 3 ml IH Q8H PRN PRN Reason: Shortness of Breath Allopurinol (Zyloprim) 100 mg PO DAILY [facility] Last Admin: 08/01/17 08:15 Dose: 100 mg Amlodipine Besylate (Norvasc) 10 mg PO DAILY [facility] Last Admin: 08/01/17 08:11 Dose: 10 mg Calcium Acetate (Phoslo) 2,001 mg PO TID [facility] Last Admin: 08/01/17 08:14 Dose: 2,001 mg Clonidine HCl (Catapres) 0.3 mg PO TID [facility] Last Admin: 08/01/17 08:10 Dose: 0.3 mg Enalapril Maleate (Vasotec) 20 mg PO BID [facility] Last Admin: 08/01/17 08:10 Dose: 20 mg Epoetin Helder (Procrit) 8,000 unit IV [facility] Hydralazine HCl (Apresoline) 50 mg PO BID [facility] Last Admin: 08/01/17 08:11 Dose: 50 mg Hydromorphone HCl (Dilaudid) 1 mg IVP Q4 PRN PRN Reason: Pain, severe (8-10) Last Admin: 08/01/17 06:06 Dose: 1 mg Minoxidil (Minoxidil) 2.5 mg PO BID [facility] Last Admin: 08/01/17 08:13 Dose: 2.5 mg Ondansetron HCl (Zofran Inj) 4 mg IVP Q4 PRN PRN Reason: Nausea/Vomiting Last Admin: 07/29/17 09:15 Dose: 4 mg Fluticasone/Salmeterol (Advair Diskus 500/50) 1 puff IH Q12H [facility] Last Admin: 08/01/17 04:45 Dose: 1 puff - Labs Labs: 07/31/17 15:40 07/31/17 15:40 PT 12.4 Seconds (9.8-13.1) 07/28/17 17:40 INR 1.1 (0.9-1.2) 07/28/17 17:40 APTT 32.3 Seconds (25.6-37.1) 07/28/17 17:40 - Constitutional Appears: Non-toxic - Head Exam Head Exam: ATRAUMATIC - Eye Exam Eye Exam: Normal appearance - ENT Exam ENT Exam: Mucous Membranes Moist - Neck Exam Neck Exam: Normal Inspection - Respiratory Exam Respiratory Exam: Clear to Ausculation Bilateral - Cardiovascular Exam Cardiovascular Exam: +S1, +S2 - GI/Abdominal Exam GI & Abdominal Exam: Normal Bowel Sounds - Extremities Exam Additional comments: no edema - Neurological Exam Neurological Exam: Alert, Oriented x3 - Psychiatric Exam Psychiatric exam: Normal Affect - Skin Skin Exam: Normal Color Assessment and Plan - Assessment and Plan (Free Text) Assessment: ESRD /Hypertensive Nephropathy/ Anemia of Renal Disease/ Secondary hyperpara/ Hyperphos plan: will cancel hd today - given some naussea this am after sevral treatments will hold off today to make sure not developing dialysis dysequilibrium. will reeval for sun or thursday will be geting bp meds given the lack of hyperkalemia and severity of hypertension - reasonable to screen for prim hyperaldo - ordered renin/franco. on procrit on phoslo will start calcitriol once phos improved
[2017-08-01 11:20] LABS: HEMATOCRIT 27.3 % (35.0-51.0); MEAN CELL VOLUME 81.1 fl (80.0-94.0); MEAN CORPUSCULAR HEMOGLOBIN 26.2 pg (27.0-31.0); MEAN CORPUSCULAR HGB CONC 32.3 g/dL (33.0-37.0); RED CELL DISTRIBUTION WIDTH 18.2 % (11.5-14.5); WHITE BLOOD COUNT 12.1 K/uL (4.8-10.8)
--- NOTE | 2017-08-01 11:32 | CP.PCM.PN ---
Subjective - Date & Time of Evaluation Date of Evaluation: 08/01/17 Time of Evaluation: 06:20 - Subjective Subjective: Vascular Surgery- Dr. Jones Patient seen and examined at bedside this morning. Patient states had an episode of nausea and non-bloody, bilious vomiting. Scheduled for HD today. Denies fevers, chills, chest pain, shortness of breath, nausea, vomiting, diarrhea. Objective - Vital Signs/Intake and Output Vital Signs (last 24 hours): Temp Pulse Resp BP Pulse Ox 97.9 F 114 H 18 183/124 H 100 08/01/17 08:12 08/01/17 08:12 08/01/17 08:12 08/01/17 08:12 08/01/17 08:12 Intake and Output: 08/01/17 08/01/17 06:59 18:59 Intake Total 940 Output Total 100 Balance 840 - Medications Medications: Current Medications Albuterol/Ipratropium (Duoneb 3 Mg/0.5 Mg (3 Ml) Ud) 3 ml IH Q8H PRN PRN Reason: Shortness of Breath Allopurinol (Zyloprim) 100 mg PO DAILY [facility] Last Admin: 08/01/17 08:15 Dose: 100 mg Amlodipine Besylate (Norvasc) 10 mg PO DAILY [facility] Last Admin: 08/01/17 08:11 Dose: 10 mg Calcium Acetate (Phoslo) 2,001 mg PO TID [facility] Last Admin: 08/01/17 08:14 Dose: 2,001 mg Clonidine HCl (Catapres) 0.3 mg PO TID [facility] Last Admin: 08/01/17 08:10 Dose: 0.3 mg Enalapril Maleate (Vasotec) 20 mg PO BID [facility] Last Admin: 08/01/17 08:10 Dose: 20 mg Epoetin Helder (Procrit) 8,000 unit IV TTS [facility] Hydralazine HCl (Apresoline) 50 mg PO BID [facility] Last Admin: 08/01/17 08:11 Dose: 50 mg Hydromorphone HCl (Dilaudid) 1 mg IVP Q4 PRN PRN Reason: Pain, severe (8-10) Last Admin: 08/01/17 06:06 Dose: 1 mg Minoxidil (Minoxidil) 2.5 mg PO BID [facility] Last Admin: 08/01/17 08:13 Dose: 2.5 mg Ondansetron HCl (Zofran Inj) 4 mg IVP Q4 PRN PRN Reason: Nausea/Vomiting Last Admin: 07/29/17 09:15 Dose: 4 mg Fluticasone/Salmeterol (Advair Diskus 500/50) 1 puff IH Q12H [facility] Last Admin: 08/01/17 04:45 Dose: 1 puff - Labs Labs: 08/01/17 10:50 07/31/17 15:40 PT 12.4 Seconds (9.8-13.1) 07/28/17 17:40 INR 1.1 (0.9-1.2) 07/28/17 17:40 APTT 32.3 Seconds (25.6-37.1) 07/28/17 17:40 - Constitutional Appears: Non-toxic, No Acute Distress - Eye Exam Eye Exam: EOMI. absent: Scleral icterus - ENT Exam ENT Exam: Mucous Membranes Moist - Respiratory Exam Respiratory Exam: NORMAL BREATHING PATTERN. absent: Accessory Muscle Use, Respiratory Distress - Cardiovascular Exam Cardiovascular Exam: +S1, +S2. absent: Bradycardia, Tachycardia - GI/Abdominal Exam GI & Abdominal Exam: Soft. absent: Distended, Firm, Guarding, Rigid, Tenderness - Neurological Exam Neurological Exam: Alert, Awake, Oriented x3 - Skin Skin Exam: Intact, Warm Assessment and Plan - Assessment and Plan (Free Text) Assessment: 47 y/o M w/ ESRD on hemodialysis - f/u final results of vein mapping - change dialysis dressing PRN - medical management per primary team - cancel dialysis today per nephro - likely placement of permacath and AVF next week. Pt discussed w/ Dr. Karen Lindquist PGY1
--- NOTE | 2017-08-01 22:47 | CP.PCM.PN ---
Subjective - Date & Time of Evaluation Date of Evaluation: 08/01/17 Time of Evaluation: 12:40 - Subjective Subjective: Pt c/o of generalized weakness and generalized pain. Objective - Vital Signs/Intake and Output Vital Signs (last 24 hours): Temp Pulse Resp BP Pulse Ox 98.6 F 113 H 18 118/81 97 08/01/17 19:58 08/01/17 21:00 08/01/17 19:58 08/01/17 19:58 08/01/17 19:58 Intake and Output: 08/01/17 08/02/17 18:59 06:59 Intake Total 860 Balance 860 - Medications Medications: Current Medications Albuterol/Ipratropium (Duoneb 3 Mg/0.5 Mg (3 Ml) Ud) 3 ml IH Q8H PRN PRN Reason: Shortness of Breath Allopurinol (Zyloprim) 100 mg PO DAILY [facility] Last Admin: 08/01/17 08:15 Dose: 100 mg Amlodipine Besylate (Norvasc) 10 mg PO DAILY [facility] Last Admin: 08/01/17 08:11 Dose: 10 mg Calcium Acetate (Phoslo) 2,001 mg PO TID [facility] Last Admin: 08/01/17 16:24 Dose: 2,001 mg Clonidine HCl (Catapres) 0.3 mg PO TID [facility] Last Admin: 08/01/17 16:23 Dose: 0.3 mg Enalapril Maleate (Vasotec) 20 mg PO BID [facility] Last Admin: 08/01/17 16:25 Dose: 20 mg Epoetin Helder (Procrit) 8,000 unit IV TTS [facility] Last Admin: 08/01/17 13:17 Dose: Not Given Hydralazine HCl (Apresoline) 50 mg PO BID [facility] Last Admin: 08/01/17 16:22 Dose: 50 mg Hydromorphone HCl (Dilaudid) 1 mg IVP Q4 PRN PRN Reason: Pain, severe (8-10) Last Admin: 08/01/17 21:13 Dose: 1 mg Minoxidil (Minoxidil) 2.5 mg PO BID [facility] Last Admin: 08/01/17 16:23 Dose: 2.5 mg Ondansetron HCl (Zofran Inj) 4 mg IVP Q4 PRN PRN Reason: Nausea/Vomiting Last Admin: 07/29/17 09:15 Dose: 4 mg Fluticasone/Salmeterol (Advair Diskus 500/50) 1 puff IH Q12H [facility] Last Admin: 08/01/17 16:25 Dose: 1 puff - Labs Labs: 08/01/17 10:50 07/31/17 15:40 PT 12.4 Seconds (9.8-13.1) 07/28/17 17:40 INR 1.1 (0.9-1.2) 07/28/17 17:40 APTT 32.3 Seconds (25.6-37.1) 07/28/17 17:40 - Constitutional Appears: No Acute Distress - Head Exam Head Exam: NORMAL INSPECTION - Eye Exam Eye Exam: PERRL - ENT Exam ENT Exam: Normal Exam - Neck Exam Neck Exam: Normal Inspection - Respiratory Exam Respiratory Exam: Decreased Breath Sounds (at bases), Rhonchi (scattered) - Cardiovascular Exam Cardiovascular Exam: Tachycardia - GI/Abdominal Exam GI & Abdominal Exam: Soft, Normal Bowel Sounds - Extremities Exam Additional comments: Edema lower extremities, pedal pulse 2+. - Back Exam Back Exam: NORMAL INSPECTION - Neurological Exam Neurological Exam: Alert, Oriented x3. absent: Motor Sensory Deficit - Psychiatric Exam Psychiatric exam: Normal Mood - Skin Skin Exam: Warm Assessment and Plan (1) Chest pain Status: Acute (2) Hyperkalemia Status: Acute (3) Chronic kidney disease, stage IV (severe) Status: Acute (4) [id number] renal failure Status: Acute (5) Hypertensive renal disease Status: Chronic (6) Uncontrolled hypertension Status: Acute (7) Back pain Status: Chronic (8) Weakness Status: Chronic - Assessment and Plan (Free Text) Plan: Hgb up today after 2 U PRBC yesterday, BP high today, continue all BP today, HD cancelled by Renal job service consultant.
[2017-08-02] MEDS: Fluticasone-Salmeterol 500-50mcg Diskus IH SCH ×3 (05:30→17:29)
--- NOTE | 2017-08-02 08:24 | CP.PCM.PN ---
Subjective - Date & Time of Evaluation Date of Evaluation: 08/02/17 Time of Evaluation: 06:50 - Subjective Subjective: Vascular Surgery- Dr. Jones Patient seen and examined at bedside this AM. no acute events overnight. Patient did not receive dialysis yesterday due to elevated blood pressure. will re-attempt dialysis again today. Denies fevers chills chest pain, shortness of breath. Objective - Vital Signs/Intake and Output Vital Signs (last 24 hours): Temp Pulse Resp BP Pulse Ox 99.1 F 108 H 20 142/92 H 95 08/02/17 08:00 08/02/17 08:00 08/02/17 08:00 08/02/17 08:00 08/02/17 08:00 - Medications Medications: Current Medications Albuterol/Ipratropium (Duoneb 3 Mg/0.5 Mg (3 Ml) Ud) 3 ml IH Q8H PRN PRN Reason: Shortness of Breath Allopurinol (Zyloprim) 100 mg PO DAILY [facility]S [facility] Last Admin: 08/01/17 08:15 Dose: 100 mg Amlodipine Besylate (Norvasc) 10 mg PO DAILY [facility] 234 BEDS AT [facility] Last Admin: 08/01/17 08:11 Dose: 10 mg Calcium Acetate (Phoslo) 2,001 mg PO TID [facility] 234 BEDS AT [facility] Last Admin: 08/01/17 16:24 Dose: 2,001 mg Clonidine HCl (Catapres) 0.3 mg PO TID [facility] 234 BEDS AT [facility] Last Admin: 08/01/17 16:23 Dose: 0.3 mg Enalapril Maleate (Vasotec) 20 mg PO BID [facility] 234 BEDS AT [facility] Last Admin: 08/01/17 16:25 Dose: 20 mg Epoetin Helder (Procrit) 8,000 unit IV TTS [facility] 234 BEDS AT [facility] Last Admin: 08/01/17 13:17 Dose: Not Given Hydralazine HCl (Apresoline) 50 mg PO BID [facility] 234 BEDS [facility] Last Admin: 08/01/17 16:22 Dose: 50 mg Hydromorphone HCl (Dilaudid) 1 mg IVP Q4 PRN PRN Reason: Pain, severe (8-10) Last Admin: 08/02/17 05:14 Dose: 1 mg Minoxidil (Minoxidil) 2.5 mg PO BID [facility] 234 BEDS AT [facility] Last Admin: 08/01/17 16:23 Dose: 2.5 mg Ondansetron HCl (Zofran Inj) 4 mg IVP Q4 PRN PRN Reason: Nausea/Vomiting Last Admin: 07/29/17 09:15 Dose: 4 mg Fluticasone/Salmeterol (Advair Diskus 500/50) 1 puff IH Q12H [facility] Last Admin: 08/02/17 05:30 Dose: 1 puff - Labs Labs: 08/01/17 10:50 07/31/17 15:40 PT 12.4 Seconds (9.8-13.1) 07/28/17 17:40 INR 1.1 (0.9-1.2) 07/28/17 17:40 APTT 32.3 Seconds (25.6-37.1) 07/28/17 17:40 - Constitutional Appears: Non-toxic, No Acute Distress - Eye Exam Eye Exam: EOMI. absent: Scleral icterus - Respiratory Exam Respiratory Exam: NORMAL BREATHING PATTERN. absent: Accessory Muscle Use, Respiratory Distress - Cardiovascular Exam Cardiovascular Exam: +S1, +S2 - GI/Abdominal Exam GI & Abdominal Exam: Soft, Normal Bowel Sounds. absent: Distended, Firm, Guarding, Rigid, Tenderness - Extremities Exam Extremities Exam: absent: Calf Tenderness, Normal Inspection - Neurological Exam Neurological Exam: Alert, Awake, Oriented x3 - Psychiatric Exam Psychiatric exam: Normal Affect - Skin Skin Exam: Normal Color, Warm Assessment and Plan - Assessment and Plan (Free Text) Assessment: 47M on hemodialysis Plan: - Shiley dressing change w/ new biopatch - medical management per primary team - attempt dialysis again today - likely placement of permacath and AVF next week. Pt discussed w/ Dr. Karen Lindquist PGY1
--- NOTE | 2017-08-02 11:54 | CP.PCM.PN ---
Subjective - Date & Time of Evaluation Date of Evaluation: 08/02/17 Time of Evaluation: 11:51 - Subjective Subjective: seen and examined feels better no n/v Objective - Vital Signs/Intake and Output Vital Signs (last 24 hours): Temp Pulse Resp BP Pulse Ox 99.1 F 108 H 20 142/92 H 95 08/02/17 08:00 08/02/17 09:00 08/02/17 08:00 08/02/17 08:59 08/02/17 08:00 - Medications Medications: Current Medications Albuterol/Ipratropium (Duoneb 3 Mg/0.5 Mg (3 Ml) Ud) 3 ml IH Q8H PRN PRN Reason: Shortness of Breath Allopurinol (Zyloprim) 100 mg PO DAILY [facility] Last Admin: 08/02/17 09:00 Dose: 100 mg Amlodipine Besylate (Norvasc) 10 mg PO DAILY [facility] Last Admin: 08/02/17 08:59 Dose: 10 mg Calcium Acetate (Phoslo) 2,001 mg PO TID [facility] Last Admin: 08/02/17 08:58 Dose: 2,001 mg Clonidine HCl (Catapres) 0.3 mg PO TID [facility] Last Admin: 08/02/17 08:57 Dose: 0.3 mg Enalapril Maleate (Vasotec) 20 mg PO BID [facility] Last Admin: 08/02/17 08:57 Dose: 20 mg Epoetin Helder (Procrit) 8,000 unit IV TTS [facility] Last Admin: 08/01/17 13:17 Dose: Not Given Hydralazine HCl (Apresoline) 50 mg PO BID [facility] Last Admin: 08/02/17 08:58 Dose: 50 mg Hydromorphone HCl (Dilaudid) 1 mg IVP Q4 PRN PRN Reason: Pain, severe (8-10) Last Admin: 08/02/17 09:21 Dose: 1 mg Minoxidil (Minoxidil) 2.5 mg PO BID [facility] Last Admin: 08/02/17 08:59 Dose: 2.5 mg Ondansetron HCl (Zofran Inj) 4 mg IVP Q4 PRN PRN Reason: Nausea/Vomiting Last Admin: 07/29/17 09:15 Dose: 4 mg Fluticasone/Salmeterol (Advair Diskus 500/50) 1 puff IH Q12H [facility] Last Admin: 08/02/17 08:56 Dose: Not Given - Labs Labs: 08/01/17 10:50 07/31/17 15:40 PT 12.4 Seconds (9.8-13.1) 07/28/17 17:40 INR 1.1 (0.9-1.2) 07/28/17 17:40 APTT 32.3 Seconds (25.6-37.1) 07/28/17 17:40 - Constitutional Appears: Non-toxic - Head Exam Head Exam: ATRAUMATIC - Eye Exam Eye Exam: Normal appearance - ENT Exam ENT Exam: Normal Exam - Respiratory Exam Additional comments: dec at bases - Cardiovascular Exam Cardiovascular Exam: +S1, +S2 - GI/Abdominal Exam GI & Abdominal Exam: Normal Bowel Sounds - Extremities Exam Additional comments: 2+ edema - Neurological Exam Neurological Exam: Alert, Oriented x3 - Psychiatric Exam Psychiatric exam: Normal Affect - Skin Skin Exam: Normal Color Assessment and Plan - Assessment and Plan (Free Text) Assessment: ESRD /Hypertensive Nephropathy/ Anemia of Renal Disease/ Secondary hyperpara/ Hyperphos plan: HD tomorrow consult sw for placement bp improved will give dose of IV lasix f/u renin/franco. on procrit on phoslo start calcitriol today
--- NOTE | 2017-08-02 16:27 | CP.PCM.PN ---
Subjective - Date & Time of Evaluation Date of Evaluation: 08/02/17 Time of Evaluation: 10:00 - Subjective Subjective: F/U Chest pain. Pt c/o of generalized weakness, low back pain and nausea in the morning. Objective - Vital Signs/Intake and Output Vital Signs (last 24 hours): Temp Pulse Resp BP Pulse Ox 98.7 F 101 H 20 131/80 93 L 08/02/17 15:39 08/02/17 15:39 08/02/17 15:39 08/02/17 15:39 08/02/17 15:39 - Medications Medications: Current Medications Albuterol/Ipratropium (Duoneb 3 Mg/0.5 Mg (3 Ml) Ud) 3 ml IH Q8H PRN PRN Reason: Shortness of Breath Allopurinol (Zyloprim) 100 mg PO DAILY [facility] Last Admin: 08/02/17 09:00 Dose: 100 mg Amlodipine Besylate (Norvasc) 10 mg PO DAILY [facility] Last Admin: 08/02/17 08:59 Dose: 10 mg Calcitriol (Rocaltrol) 0.25 mcg PO DAILY [facility] Calcium Acetate (Phoslo) 2,001 mg PO TID [facility] Last Admin: 08/02/17 13:14 Dose: 2,001 mg Clonidine HCl (Catapres) 0.3 mg PO TID [facility] Last Admin: 08/02/17 13:13 Dose: 0.3 mg Enalapril Maleate (Vasotec) 20 mg PO BID [facility] Last Admin: 08/02/17 08:57 Dose: 20 mg Epoetin Helder (Procrit) 8,000 unit IV TTS [facility] Last Admin: 08/01/17 13:17 Dose: Not Given Hydralazine HCl (Apresoline) 50 mg PO BID [facility] Last Admin: 08/02/17 08:58 Dose: 50 mg Hydromorphone HCl (Dilaudid) 1 mg IVP Q4 PRN PRN Reason: Pain, severe (8-10) Last Admin: 08/02/17 13:25 Dose: 1 mg Minoxidil (Minoxidil) 2.5 mg PO BID [facility] Last Admin: 08/02/17 08:59 Dose: 2.5 mg Ondansetron HCl (Zofran Inj) 4 mg IVP Q4 PRN PRN Reason: Nausea/Vomiting Last Admin: 07/29/17 09:15 Dose: 4 mg Fluticasone/Salmeterol (Advair Diskus 500/50) 1 puff IH Q12H [facility] Last Admin: 08/02/17 08:56 Dose: Not Given - Labs Labs: 08/01/17 10:50 07/31/17 15:40 PT 12.4 Seconds (9.8-13.1) 07/28/17 17:40 INR 1.1 (0.9-1.2) 07/28/17 17:40 APTT 32.3 Seconds (25.6-37.1) 07/28/17 17:40 - Constitutional Appears: No Acute Distress - Head Exam Head Exam: NORMAL INSPECTION - Eye Exam Eye Exam: PERRL - ENT Exam ENT Exam: Normal Exam - Neck Exam Neck Exam: Normal Inspection - Respiratory Exam Respiratory Exam: Decreased Breath Sounds (at bases), Rhonchi (scattered) - Cardiovascular Exam Cardiovascular Exam: REGULAR RHYTHM - GI/Abdominal Exam GI & Abdominal Exam: Soft, Normal Bowel Sounds - Extremities Exam Additional comments: Edema 2+ BLE. - Back Exam Back Exam: NORMAL INSPECTION - Neurological Exam Neurological Exam: Alert, Oriented x3. absent: Motor Sensory Deficit - Psychiatric Exam Psychiatric exam: Normal Mood - Skin Skin Exam: Warm Assessment and Plan (1) Chest pain Status: Acute (2) Hyperkalemia Status: Acute (3) Chronic kidney disease, stage IV (severe) Status: Acute (4) [id number] renal failure Status: Acute (5) Hypertensive renal disease Status: Chronic (6) Uncontrolled hypertension Status: Acute (7) Back pain Status: Chronic (8) Weakness Status: Chronic - Assessment and Plan (Free Text) Plan: Continue Norvasc, Vasotec, Procrit, Zyloprim and rest of Tx.
[2017-08-03] MEDS: Fluticasone-Salmeterol 500-50mcg Diskus IH SCH ×2 (05:40→18:30)
--- NOTE | 2017-08-03 08:21 | CP.PCM.PN ---
<Hunter Lindquist - Last Filed: 08/03/17 08:20> Subjective - Date & Time of Evaluation Date of Evaluation: 08/03/17 Time of Evaluation: 06:40 Objective - Vital Signs/Intake and Output Vital Signs (last 24 hours): Temp Pulse Resp BP Pulse Ox 99.0 F 96 H 16 142/84 94 L 08/03/17 08:13 08/03/17 08:13 08/03/17 08:13 08/03/17 08:13 08/03/17 08:13 - Medications Medications: Current Medications Albuterol/Ipratropium (Duoneb 3 Mg/0.5 Mg (3 Ml) Ud) 3 ml IH Q8H PRN PRN Reason: Shortness of Breath Allopurinol (Zyloprim) 100 mg PO DAILY [facility] Last Admin: 08/02/17 09:00 Dose: 100 mg Amlodipine Besylate (Norvasc) 10 mg PO DAILY [facility] Last Admin: 08/02/17 08:59 Dose: 10 mg Calcitriol (Rocaltrol) 0.25 mcg PO DAILY [facility] Calcium Acetate (Phoslo) 2,001 mg PO TID [facility] Last Admin: 08/02/17 17:32 Dose: 2,001 mg Clonidine HCl (Catapres) 0.3 mg PO TID [facility] Last Admin: 08/02/17 17:30 Dose: 0.3 mg Enalapril Maleate (Vasotec) 20 mg PO BID [facility] Last Admin: 08/02/17 17:33 Dose: 20 mg Epoetin Helder (Procrit) 8,000 unit IV TTS [facility] Last Admin: 08/01/17 13:17 Dose: Not Given Hydralazine HCl (Apresoline) 50 mg PO BID [facility] Last Admin: 08/02/17 17:30 Dose: 50 mg Hydromorphone HCl (Dilaudid) 1 mg IVP Q4 PRN PRN Reason: Pain, severe (8-10) Last Admin: 08/03/17 05:39 Dose: 1 mg Minoxidil (Minoxidil) 2.5 mg PO BID [facility] Last Admin: 08/02/17 17:32 Dose: 2.5 mg Ondansetron HCl (Zofran Inj) 4 mg IVP Q4 PRN PRN Reason: Nausea/Vomiting Last Admin: 07/29/17 09:15 Dose: 4 mg Fluticasone/Salmeterol (Advair Diskus 500/50) 1 puff IH Q12H [facility] Last Admin: 08/03/17 05:40 Dose: 1 puff - Labs Labs: 08/01/17 10:50 07/31/17 15:40 PT 12.4 Seconds (9.8-13.1) 07/28/17 17:40 INR 1.1 (0.9-1.2) 07/28/17 17:40 APTT 32.3 Seconds (25.6-37.1) 07/28/17 17:40 <Omid Dowell - Last Filed: 08/03/17 09:22> Subjective - Subjective Subjective: Pt S&E. NAEO. There was opportunity for permacath placement this morning but pt claimed he was not feeling well and did not want to go for procedure. Pt states he felt weak, dizzy and sob this morning. He would like to eat and receive dialysis before proceeding. Dw pt the important of having permanent catheter placed. He agreed to have procedure tomorrow, thursday, @ 9AM. Pt should receive vein mapping today so can follow up for outpatient fistula. NPO @ [facility] Dr Karen Dowell, PGY3 Objective - Vital Signs/Intake and Output Vital Signs (last 24 hours): Temp Pulse Resp BP Pulse Ox 99.0 F 96 H 16 142/84 94 L 08/03/17 08:13 08/03/17 08:13 08/03/17 08:13 08/03/17 08:13 08/03/17 08:13 - Medications Medications: Current Medications Albuterol/Ipratropium (Duoneb 3 Mg/0.5 Mg (3 Ml) Ud) 3 ml IH Q8H PRN PRN Reason: Shortness of Breath Allopurinol (Zyloprim) 100 mg PO DAILY [facility] Last Admin: 08/02/17 09:00 Dose: 100 mg Amlodipine Besylate (Norvasc) 10 mg PO DAILY [facility] Last Admin: 08/02/17 08:59 Dose: 10 mg Calcitriol (Rocaltrol) 0.25 mcg PO DAILY [facility] Calcium Acetate (Phoslo) 2,001 mg PO TID [facility] Last Admin: 08/02/17 17:32 Dose: 2,001 mg Clonidine HCl (Catapres) 0.3 mg PO TID [facility] Last Admin: 08/02/17 17:30 Dose: 0.3 mg Enalapril Maleate (Vasotec) 20 mg PO BID [facility] Last Admin: 08/02/17 17:33 Dose: 20 mg Epoetin Helder (Procrit) 8,000 unit IV TTS [facility] Last Admin: 08/01/17 13:17 Dose: Not Given Hydralazine HCl (Apresoline) 50 mg PO BID [facility] Last Admin: 08/02/17 17:30 Dose: 50 mg Hydromorphone HCl (Dilaudid) 1 mg IVP Q4 PRN PRN Reason: Pain, severe (8-10) Last Admin: 08/03/17 05:39 Dose: 1 mg Minoxidil (Minoxidil) 2.5 mg PO BID [facility] Last Admin: 08/02/17 17:32 Dose: 2.5 mg Ondansetron HCl (Zofran Inj) 4 mg IVP Q4 PRN PRN Reason: Nausea/Vomiting Last Admin: 07/29/17 09:15 Dose: 4 mg Fluticasone/Salmeterol (Advair Diskus 500/50) 1 puff IH Q12H [facility] Last Admin: 08/03/17 05:40 Dose: 1 puff - Labs Labs: 08/01/17 10:50 07/31/17 15:40 PT 12.4 Seconds (9.8-13.1) 07/28/17 17:40 INR 1.1 (0.9-1.2) 07/28/17 17:40 APTT 32.3 Seconds (25.6-37.1) 07/28/17 17:40 Assessment and Plan - Assessment and Plan (Free Text) Assessment: 47M w/ ARF; needs access Plan: [place] @[place] Permacath placement tomorrow @ 9AM vein mapping ordered can get AVF placed as outpatient d/w Dr Karen Dowell, PGY3
[2017-08-03 12:55] LABS: HEMATOCRIT 24.9 % (35.0-51.0); MEAN CELL VOLUME 82.5 fl (80.0-94.0); MEAN CORPUSCULAR HEMOGLOBIN 26.3 pg (27.0-31.0); MEAN CORPUSCULAR HGB CONC 31.9 g/dL (33.0-37.0); RED CELL DISTRIBUTION WIDTH 17.6 % (11.5-14.5); WHITE BLOOD COUNT 15.5 K/uL (4.8-10.8)
[2017-08-03 13:13] LABS: CALCIUM 7.7 mg/dL (8.4-10.2); POTASSIUM 3.6 MMOL/L (3.6-5.0)
[2017-08-03] MEDS ORDERED: Epoetin Alfa 20000 UNIT/ML Inj IV SCH (15:43)
--- NOTE | 2017-08-03 15:56 | CP.PCM.PN ---
Subjective - Date & Time of Evaluation Date of Evaluation: 08/03/17 Time of Evaluation: 15:52 - Subjective Subjective: Follow up Nephrology Consultation Note Assessment: Stable Hypertensive Chronic Kidney Disease (I12.0) New End stage renal disease (N18.6) dependence on hemodialysis (Z99.2) Anemia (D64.9), Hyperphosphatemia (E83.39), Secondary Hyperparathyroidism (E21.1 ), HTN (I12.0), hypocalcemia Plan: Will plan for HD today as ordered. Will plan for extra dialysis session tomorrow. Continue with Nephrovite 1 tab/day. PRBC as needed for anemia. On LYLE as epogen. will also give venofer. TSAT/ Ferritin 28%/370 Continue with phos binders Continue with calcitriol Last PTH level 983 BP control with meds as ordered. Patient on RAAS ellen as ACEI Glycemic control, Dialysis consistent diet Further work up/management as per primary team Dose meds/antibiotics (if needed) for ESRD status. Avoid fleets enema/magnesium based laxatives. plan for permacath tomorrow. vascular surgery to consider placing AV access at same time. Thanks for allowing me to participate in care of your patient. Will follow patient with you. Please call if any Qs. d/w team Dr Tom Rodriguez Office: [phone] Subjective: Noted events overnight. Patients feels okay. Denies chest pain, palpitation, c/o shortness of breath, leg swelling but better. No urinary complaints Physical Examination: General Appearance: Comfortable, in no acute respiratory distress, co- operative. Vitals reviewed and noted as below Lungs: Normal respiratory rate/effort. Breath sounds bilateral equal and has basal crackles Heart: Normal rate. s1s2 normal. No rub or gallop. Extremities: 2+ edema. Neurological: Patient is alert, awake and oriented to person, place and time. No focal deficit. Strength bilateral appropriate and equal Skin: Warm and dry. Normal turgor. No rash. Palpitation: Normal elasticity for age Abdomen: Abdomen is soft. Bowel sounds +. There is no abdominal tenderness, no guarding/rigidity or organomegaly : kidney or bladder not palpable Access: femoral shiley Labs/imaging reviewed. Past medical history, past surgical history, family history, social history, allergy reviewed Objective - Vital Signs/Intake and Output Vital Signs (last 24 hours): Temp Pulse Resp BP Pulse Ox 98.3 F 98 H 18 138/89 95 08/03/17 12:18 08/03/17 12:18 08/03/17 12:18 08/03/17 12:18 08/03/17 12:18 - Medications Medications: Current Medications Albuterol/Ipratropium (Duoneb 3 Mg/0.5 Mg (3 Ml) Ud) 3 ml IH Q8H PRN PRN Reason: Shortness of Breath Allopurinol (Zyloprim) 100 mg PO DAILY [facility] Last Admin: 08/03/17 09:47 Dose: 100 mg Amlodipine Besylate (Norvasc) 10 mg PO DAILY [facility] Last Admin: 08/03/17 09:46 Dose: Not Given Calcitriol (Rocaltrol) 0.25 mcg PO DAILY [facility] Last Admin: 08/03/17 09:47 Dose: 0.25 mcg Calcium Acetate (Phoslo) 2,001 mg PO TID [facility] Last Admin: 08/03/17 12:53 Dose: 2,001 mg Clonidine HCl (Catapres) 0.3 mg PO TID [facility] Last Admin: 08/03/17 12:33 Dose: Not Given Enalapril Maleate (Vasotec) 20 mg PO BID [facility] Last Admin: 08/03/17 09:46 Dose: Not Given Epoetin Helder (Procrit) 8,000 unit IV [facility] Hydralazine HCl (Apresoline) 50 mg PO BID [facility] Last Admin: 08/03/17 09:45 Dose: Not Given Hydromorphone HCl (Dilaudid) 1 mg IVP Q4 PRN PRN Reason: Pain, severe (8-10) Last Admin: 08/03/17 13:50 Dose: 1 mg Minoxidil (Minoxidil) 2.5 mg PO BID [facility] Last Admin: 08/03/17 09:46 Dose: Not Given Ondansetron HCl (Zofran Inj) 4 mg IVP Q4 PRN PRN Reason: Nausea/Vomiting Last Admin: 07/29/17 09:15 Dose: 4 mg Fluticasone/Salmeterol (Advair Diskus 500/50) 1 puff IH Q12H [facility] Last Admin: 08/03/17 05:40 Dose: 1 puff Vitamin B Complex/Vit C/Folic Acid (Nephro-Trisha) 1 tab PO DAILY [facility] - Labs Labs: 08/03/17 12:46 08/03/17 12:46 PT 12.4 Seconds (9.8-13.1) 07/28/17 17:40 INR 1.1 (0.9-1.2) 07/28/17 17:40 APTT 32.3 Seconds (25.6-37.1) 07/28/17 17:40
--- NOTE | 2017-08-03 17:22 | CP.PCM.PN ---
Subjective - Date & Time of Evaluation Date of Evaluation: 08/03/17 Time of Evaluation: 13:30 - Subjective Subjective: F/U Chest pain. Pt feeling less tired today, having HD, c/o of L-S pain. Objective - Vital Signs/Intake and Output Vital Signs (last 24 hours): Temp Pulse Resp BP Pulse Ox 98.7 F 102 H 20 149/78 97 08/03/17 15:52 08/03/17 15:52 08/03/17 15:52 08/03/17 15:52 08/03/17 15:52 - Medications Medications: Current Medications Albuterol/Ipratropium (Duoneb 3 Mg/0.5 Mg (3 Ml) Ud) 3 ml IH Q8H PRN PRN Reason: Shortness of Breath Allopurinol (Zyloprim) 100 mg PO DAILY [facility] Last Admin: 08/03/17 09:47 Dose: 100 mg Amlodipine Besylate (Norvasc) 10 mg PO DAILY [facility] Last Admin: 08/03/17 09:46 Dose: Not Given Calcitriol (Rocaltrol) 0.25 mcg PO DAILY [facility] Last Admin: 08/03/17 09:47 Dose: 0.25 mcg Calcium Acetate (Phoslo) 2,001 mg PO TID [facility] Last Admin: 08/03/17 12:53 Dose: 2,001 mg Clonidine HCl (Catapres) 0.3 mg PO TID [facility] Last Admin: 08/03/17 12:33 Dose: Not Given Enalapril Maleate (Vasotec) 20 mg PO BID [facility] Last Admin: 08/03/17 09:46 Dose: Not Given Epoetin Helder (Procrit) 8,000 unit IV MWF [facility] Hydralazine HCl (Apresoline) 50 mg PO BID [facility] Last Admin: 08/03/17 09:45 Dose: Not Given Hydromorphone HCl (Dilaudid) 1 mg IVP Q4 PRN PRN Reason: Pain, severe (8-10) Last Admin: 08/03/17 13:50 Dose: 1 mg Iron Sucrose 100 mg/ Sodium (Chloride) 105 mls @ 105 mls/hr IVPB DAILY [facility] Stop: 08/08/17 16:01 Minoxidil (Minoxidil) 2.5 mg PO BID [facility] Last Admin: 08/03/17 09:46 Dose: Not Given Ondansetron HCl (Zofran Inj) 4 mg IVP Q4 PRN PRN Reason: Nausea/Vomiting Last Admin: 07/29/17 09:15 Dose: 4 mg Fluticasone/Salmeterol (Advair Diskus 500/50) 1 puff IH Q12H [facility] Last Admin: 08/03/17 05:40 Dose: 1 puff Vitamin B Complex/Vit C/Folic Acid (Nephro-Trisha) 1 tab PO DAILY [facility] - Labs Labs: 08/03/17 12:46 08/03/17 12:46 PT 12.4 Seconds (9.8-13.1) 07/28/17 17:40 INR 1.1 (0.9-1.2) 07/28/17 17:40 APTT 32.3 Seconds (25.6-37.1) 07/28/17 17:40 - Constitutional Appears: No Acute Distress - Head Exam Head Exam: NORMAL INSPECTION - Eye Exam Eye Exam: PERRL - ENT Exam ENT Exam: Normal Exam - Neck Exam Neck Exam: Normal Inspection - Respiratory Exam Respiratory Exam: Decreased Breath Sounds (at bases), Rhonchi (scattered) - Cardiovascular Exam Cardiovascular Exam: REGULAR RHYTHM - GI/Abdominal Exam GI & Abdominal Exam: Soft, Normal Bowel Sounds - Extremities Exam Additional comments: Edema 2+ BLE - Back Exam Back Exam: NORMAL INSPECTION - Neurological Exam Neurological Exam: Alert, Oriented x3. absent: Motor Sensory Deficit - Psychiatric Exam Psychiatric exam: Normal Mood - Skin Skin Exam: Warm Assessment and Plan (1) Chest pain Status: Acute (2) Hyperkalemia Status: Acute (3) Chronic kidney disease, stage IV (severe) Status: Acute (4) [id number] renal failure Status: Acute (5) Hypertensive renal disease Status: Chronic (6) Uncontrolled hypertension Status: Acute (7) Back pain Status: Chronic (8) Weakness Status: Chronic - Assessment and Plan (Free Text) Plan: F/U CXR, WBC 15.5, to have Permacath tomorrow, F/u for venous mapping and to have out Pt AV fistula
[2017-08-03 22:55] LABS: RBC URINE 11 /hpf (0-3); URINE BILIRUBIN NEGATIVE (NEGATIVE); URINE BLOOD MODERATE (NEGATIVE); URINE COLOR YELLOW (YELLOW); URINE GLUCOSE (UA) 50 mg/dL (Normal); URINE KETONE NEGATIVE (NEGATIVE); URINE LEUKOCYTE ESTERASE MOD Leu/uL (Negative); URINE PROTEIN >=500 mg/dL (NEGATIVE); URINE UROBILINOGEN 0.2-1.0 mg/dL (0.2-1.0); WBC URINE 28 /hpf (0-5)
[2017-08-04] MEDS: Fluticasone-Salmeterol 500-50mcg Diskus IH SCH ×2 (05:44→17:02)
[2017-08-04 06:18] LABS: HEMATOCRIT 24.9 % (35.0-51.0); MEAN CELL VOLUME 82.4 fl (80.0-94.0); MEAN CORPUSCULAR HEMOGLOBIN 26.3 pg (27.0-31.0); RED CELL DISTRIBUTION WIDTH 17.8 % (11.5-14.5); WHITE BLOOD COUNT 13.8 K/uL (4.8-10.8)
[2017-08-04 06:33] LABS: ALB/GLOB RATIO 1.1 (1.0-2.1); BILIRUBIN,TOTAL 0.3 mg/dl (0.2-1.3); CALCIUM 7.1 mg/dL (8.4-10.2); MAGNESIUM 1.8 MG/DL (1.6-2.3); PHOSPHOROUS 6.4 mg/dl (2.5-4.5); POTASSIUM 4.7 MMOL/L (3.6-5.0); TOTAL PROTEIN 6.9 G/DL (6.3-8.2)
[2017-08-04] MEDS ORDERED: ceFAZolin IV 1 gm in Dextrose 1 GM/50 ML BAG IVPB ONE (07:18)
[2017-08-04] MEDS ORDERED: Lidocaine 1% Inj (20ml) ONE (07:19)
[2017-08-04] MEDS ORDERED: Midazolam 2 MG/2 ML VIAL ONE (09:17)
[2017-08-04] MEDS ORDERED: Propofol 10 mg/ml Inj (20 ML) ONE (09:17)
[2017-08-04] MEDS ORDERED: Lidocaine 1% 5ml Abboject IV ONE (09:18)
[2017-08-04] MEDS ORDERED: Sevoflurane - Inhalation Anesthetic Liq (250 ml) ONE (09:19)
[2017-08-04] MEDS: Multivitamin Vitamin B Complex (Nephro-Vite) Tab PO SCH ×2 (09:29→12:29)
--- NOTE | 2017-08-04 09:41 | RAD ---
HISTORY: Leukocytosis COMPARISON: Chest radiograph dated 07/28/2017. FINDINGS: LUNGS: Prominence of the pulmonary vasculature may be secondary to AP technique and/or pulmonary vascular congestion. Left basilar atelectasis versus infiltrate. PLEURA: Equivocal left pleural effusion. No pneumothorax apparent. CARDIOVASCULAR: Normal. OSSEOUS STRUCTURES: No significant abnormalities. VISUALIZED UPPER ABDOMEN: Normal. OTHER FINDINGS: None. IMPRESSION: Worsening retrocardiac opacity may be secondary to atelectasis, infiltrate and/or pleural effusion.
[2017-08-04] MEDS ORDERED: Sodium Chloride 0.9% 500 ML IV ONE (10:15)
--- NOTE | 2017-08-04 10:21 | CP.PCM.PN ---
Subjective - Date & Time of Evaluation Date of Evaluation: 08/04/17 Time of Evaluation: 10:17 - Subjective Subjective: Follow up Nephrology Consultation Note Assessment: Stable Hypertensive Chronic Kidney Disease (I12.0) New End stage renal disease (N18.6) dependence on hemodialysis (Z99.2) Anemia (D64.9), Hyperphosphatemia (E83.39), Secondary Hyperparathyroidism (E21.1 ), HTN (I12.0), hypocalcemia Left pleural effusion versus infiltrate Plan: Will plan for extra dialysis session today. routine HD tomorrow. Continue with Nephrovite 1 tab/day. PRBC as needed for anemia. On LYLE as epogen. will also give venofer. TSAT/ Ferritin 28%/370 Continue with phos binders Continue with calcitriol Last PTH level 983 BP control with meds as ordered. Patient on RAAS ellen as ACEI Glycemic control, Dialysis consistent diet Further work up/management as per primary team Dose meds/antibiotics (if needed) for ESRD status. Avoid fleets enema/magnesium based laxatives. plan for permacath today. vascular surgery planning AV access as outpt. d/c femoral sam today. Patient will need snf outpt hemodialysis. Thanks for allowing me to participate in care of your patient. Will follow patient with you. Please call if any Qs. d/w team Dr Tom Rodriguez Office: [phone] Subjective: Noted events overnight. Patients feels okay. Denies chest pain, palpitation, improved shortness of breath, leg swelling. No urinary complaints, asking to go home [place] Physical Examination: General Appearance: Comfortable, in no acute respiratory distress, co- operative. Vitals reviewed and noted as below Lungs: Normal respiratory rate/effort. Breath sounds decreased at left base Heart: Normal rate. s1s2 normal. No rub or gallop. Extremities: 1-2+ edema. Neurological: Patient is alert, awake and oriented to person, place and time. No focal deficit. Strength bilateral appropriate and equal Skin: Warm and dry. Normal turgor. No rash. Palpitation: Normal elasticity for age Abdomen: Abdomen is soft. Bowel sounds +. There is no abdominal tenderness, no guarding/rigidity or organomegaly : kidney or bladder not palpable Access: femoral shiley Labs/imaging reviewed. Past medical history, past surgical history, family history, social history, allergy reviewed Objective - Vital Signs/Intake and Output Vital Signs (last 24 hours): Temp Pulse Resp BP Pulse Ox 98.4 F 89 18 157/90 H 95 08/04/17 08:00 08/04/17 08:00 08/04/17 08:00 08/04/17 08:00 08/04/17 08:00 - Medications Medications: Current Medications Albuterol/Ipratropium (Duoneb 3 Mg/0.5 Mg (3 Ml) Ud) 3 ml IH Q8H PRN PRN Reason: Shortness of Breath Allopurinol (Zyloprim) 100 mg PO DAILY [facility] Last Admin: 08/04/17 09:29 Dose: Not Given Amlodipine Besylate (Norvasc) 10 mg PO DAILY [facility] Last Admin: 08/04/17 09:29 Dose: Not Given Calcitriol (Rocaltrol) 0.25 mcg PO DAILY [facility] Last Admin: 08/04/17 09:29 Dose: Not Given Calcium Acetate (Phoslo) 2,001 mg PO TID [facility] Last Admin: 08/04/17 09:29 Dose: Not Given Clonidine HCl (Catapres) 0.3 mg PO TID [facility] Last Admin: 08/04/17 09:29 Dose: Not Given Enalapril Maleate (Vasotec) 20 mg PO BID [facility] Last Admin: 08/04/17 09:29 Dose: Not Given Epoetin Helder (Procrit) 10,000 unit IV F [facility] Hydralazine HCl (Apresoline) 50 mg PO BID [facility] Last Admin: 08/04/17 09:29 Dose: Not Given Hydromorphone HCl (Dilaudid) 1 mg IVP Q4 PRN PRN Reason: Pain, severe (8-10) Last Admin: 08/04/17 05:42 Dose: 1 mg Iron Sucrose 100 mg/ Sodium (Chloride) 105 mls @ 105 mls/hr IVPB DAILY [facility] Stop: 08/08/17 16:01 Last Admin: 08/04/17 08:03 Dose: 105 mls/hr Minoxidil (Minoxidil) 2.5 mg PO BID [facility] Last Admin: 08/04/17 09:29 Dose: Not Given Ondansetron HCl (Zofran Inj) 4 mg IVP Q4 PRN PRN Reason: Nausea/Vomiting Last Admin: 07/29/17 09:15 Dose: 4 mg Fluticasone/Salmeterol (Advair Diskus 500/50) 1 puff IH Q12H [facility] Last Admin: 08/04/17 05:44 Dose: 1 puff Vitamin B Complex/Vit C/Folic Acid (Nephro-Trisha) 1 tab PO DAILY [facility] Last Admin: 08/04/17 09:29 Dose: Not Given - Labs Labs: 08/04/17 05:00 08/04/17 05:00 PT 12.4 Seconds (9.8-13.1) 07/28/17 17:40 INR 1.1 (0.9-1.2) 07/28/17 17:40 APTT 32.3 Seconds (25.6-37.1) 07/28/17 17:40
[2017-08-04] MEDS ORDERED: Esmolol 100 mg/10ml Inj IV ONE (10:58)
[2017-08-04] MEDS ORDERED: Moxifloxacin IV 400mg/250ml NS 400 MG/250 ML BAG IVPB SCH (11:00)
--- NOTE | 2017-08-04 11:26 | PCM.SURG1 ---
Surgeon's Initial Post Op Note - Surgeon's Notes Surgeon: Dr. Jones [employer] Analyst: [email or web address] Type of Anesthesia: General LMA Pre-Operative Diagnosis: End Stage Renal disease on Hemodialysis Operative Findings: see op note Post-Operative Diagnosis: as above Operation Performed: Right Internal Jugular permacath placement (Tunneled dialysis catheter) Specimen/Specimens Removed: none Estimated Blood Loss: EBL {In ML}: 5 Post-Op Condition: Good Date of Surgery/Procedure: 08/04/17 Time of Surgery/Procedure: 10:30
[2017-08-04] MEDS ORDERED: levoFLOXacin 250 mg in D5W 250 MG/50 ML BAG IVPB SCH ×2 (11:30→12:00)
--- NOTE | 2017-08-04 11:43 | RAD ---
PROCEDURE: CHEST RADIOGRAPH, 1 VIEW HISTORY: r/o pneumothorax COMPARISON: Chest radiograph dated 08/03/2017. FINDINGS: LUNGS: Stable prominence of the pulmonary vasculature which may be secondary to AP technique and/or pulmonary vascular congestion. Stable left basilar atelectasis versus infiltrate. PLEURA: Equivocal left pleural effusion. No pneumothorax. CARDIOVASCULAR: Unchanged. OSSEOUS STRUCTURES: No significant abnormalities. VISUALIZED UPPER ABDOMEN: Normal. OTHER FINDINGS: Interval placement of right internal jugular access tunneled hemodialysis catheter was catheter tips at the cavoatrial junction. IMPRESSION: Interval placement of right internal jugular access tunneled hemodialysis catheter in satisfactory position. No demonstrated pneumothorax. Stable retrocardiac opacity which may be secondary to atelectasis, infiltrate and/or pleural effusion.
--- NOTE | 2017-08-04 12:37 | US ---
PROCEDURE: Bilateral upper extremity duplex Doppler venous ultrasound examination HISTORY: venous mapping COMPARISON: Not available TECHNIQUE: Examination the right and left internal jugular, subclavian, axillary, brachial and cephalic and basilic veins was performed utilizing a linear array color Doppler transducer. Examination evaluated compressibility, augmentation and respiratory phasic behavior. FINDINGS: There is no evidence of deep venous thrombosis in the right or left upper extremity. No intraluminal thrombus is demonstrated. Normal compressibility is demonstrated throughout the examined vessels. Diameter of the right basilic vein was 4 mm proximally, 5 mm in its mid aspect and 6 mm distally. The right cephalic vein measured 5 mm proximally, in its mid aspect and distally. The left basilic vein 6 mm in its mid and proximal aspect and 5 mm distally. The left cephalic vein measured 6 mm proximally, 5 mm in its mid aspect and 4 mm distally. IMPRESSION: No evidence of deep venous thrombosis the right or left upper extremity. Basilic and cephalic venous diameters as detailed above.
--- NOTE | 2017-08-04 13:20 | PQF GENQUE ---
Dr. Harrell, . Please clarify the stage of the chronic kidney disease: POA Stage 4 (severe) Stage 5 Other (please specify) Clinically unable to determine Unknown H and P: DRAFT note: Assessment includes: CKD Stage 4 07/29 Renal consult:known to me with history of chronic kidney disease stage IV.Impression includes:The patient has stage V requiring chronic dialysis. He is having dialysis last night and is having dialysis right now 07/31 Renal note: dxs. include: ESRD 08/04: surgical post-op note: Operation Performed: Right Internal Jugular permacath placement (Tunneled dialysis catheter) GFR (Af Amer/Non Af Amer) range: 3/2-> 6/5 This form is a permanent part of the medical record Clarification of your documentation is requested to better reflect the severity of illness and intensity of treatment of your patient. Indicators present [] Specify: [] [] Specify: [] [] Specify: [] [] Specify: [] Location in the medical record that reflects the above clinical findings: [] Treatment Provided: [] PHYSICIAN'S RESPONSE Based on your medical judgment of the clinical indicators outlined above please clarify the following: [] Practitioner response [] If unable to determine, please check the box, sign and date. Present On Admission (POA) Indicator: [] Present at the time of admission [] Not present at the time of admission [] Clinically Undetermined In responding to this query, please exercise your independent professional judgment. The fact that a question is asked does not imply that any particular answer is desired or expected. Thank you for your clarification on this documentation. If you have any questions please call. * Thank you, Patti Gonzalez RN ext. #[phone] MTDD
--- NOTE | 2017-08-04 14:25 | RAD ---
PROCEDURE: Intraoperative fluoroscopy HISTORY: PERM A CATH INSERTION COMPARISON: Not available TECHNIQUE: Intraoperative fluoroscopy was provided for PermCath insertion. Total time of fluoroscopy was 72.5 seconds. FINDINGS: Several fluoroscopic spot films are submitted. These are on file for review. IMPRESSION: Fluoroscopy provided.
--- NOTE | 2017-08-04 15:24 | CP.PCM.PN ---
Subjective - Date & Time of Evaluation Date of Evaluation: 08/04/17 Time of Evaluation: 10:00 - Subjective Subjective: F/U Chest pain/ PNA S/P R Permacath today, less weaknesses, with L-S pain. Objective - Vital Signs/Intake and Output Vital Signs (last 24 hours): Temp Pulse Resp BP Pulse Ox 99.2 F 86 20 169/111 H 98 08/04/17 12:00 08/04/17 12:29 08/04/17 12:00 08/04/17 12:29 08/04/17 12:00 Intake and Output: 08/04/17 08/04/17 06:59 18:59 Intake Total 100 Balance 100 - Medications Medications: Current Medications Albuterol/Ipratropium (Duoneb 3 Mg/0.5 Mg (3 Ml) Ud) 3 ml IH Q8H PRN PRN Reason: Shortness of Breath Allopurinol (Zyloprim) 100 mg PO DAILY [facility] Last Admin: 08/04/17 12:29 Dose: 100 mg Amlodipine Besylate (Norvasc) 10 mg PO DAILY [facility] Last Admin: 08/04/17 12:28 Dose: 10 mg Calcitriol (Rocaltrol) 0.25 mcg PO DAILY [facility] Last Admin: 08/04/17 12:29 Dose: 0.25 mcg Calcium Acetate (Phoslo) 2,001 mg PO TID [facility] Last Admin: 08/04/17 12:29 Dose: 2,001 mg Clonidine HCl (Catapres) 0.3 mg PO TID [facility] Last Admin: 08/04/17 12:26 Dose: 0.3 mg Enalapril Maleate (Vasotec) 20 mg PO BID [facility] Last Admin: 08/04/17 12:27 Dose: 20 mg Epoetin Helder (Procrit) 10,000 unit IV MWF [facility] Hydralazine HCl (Apresoline) 50 mg PO BID [facility] Last Admin: 08/04/17 12:29 Dose: 50 mg Hydromorphone HCl (Dilaudid) 1 mg IVP Q4 PRN PRN Reason: Pain, severe (8-10) Last Admin: 08/04/17 05:42 Dose: 1 mg Iron Sucrose 100 mg/ Sodium (Chloride) 105 mls @ 105 mls/hr IVPB DAILY [facility] Stop: 08/08/17 16:01 Last Admin: 08/04/17 08:03 Dose: 105 mls/hr Levofloxacin/Dextrose (Levaquin 250mg) 250 mg in 50 mls @ 50 mls/hr IVPB Q48H [facility] Minoxidil (Minoxidil) 2.5 mg PO BID [facility] Last Admin: 08/04/17 12:29 Dose: 2.5 mg Ondansetron HCl (Zofran Inj) 4 mg IVP Q4 PRN PRN Reason: Nausea/Vomiting Last Admin: 07/29/17 09:15 Dose: 4 mg Fluticasone/Salmeterol (Advair Diskus 500/50) 1 puff IH Q12H [facility] Last Admin: 08/04/17 05:44 Dose: 1 puff Vitamin B Complex/Vit C/Folic Acid (Nephro-Trisha) 1 tab PO DAILY [facility] Last Admin: 08/04/17 12:29 Dose: 1 tab - Labs Labs: 08/04/17 05:00 08/04/17 05:00 PT 12.4 Seconds (9.8-13.1) 07/28/17 17:40 INR 1.1 (0.9-1.2) 07/28/17 17:40 APTT 32.3 Seconds (25.6-37.1) 07/28/17 17:40 - Constitutional Appears: No Acute Distress - Head Exam Head Exam: NORMAL INSPECTION - Eye Exam Eye Exam: PERRL - ENT Exam ENT Exam: Normal Exam - Neck Exam Neck Exam: Normal Inspection - Respiratory Exam Respiratory Exam: Decreased Breath Sounds (at bases), Rhonchi (scattered) Additional comments: R Permacath - Cardiovascular Exam Cardiovascular Exam: REGULAR RHYTHM - GI/Abdominal Exam GI & Abdominal Exam: Soft, Normal Bowel Sounds - Extremities Exam Additional comments: Edema 2+ BLE - Back Exam Back Exam: NORMAL INSPECTION - Neurological Exam Neurological Exam: Alert, Oriented x3. absent: Motor Sensory Deficit - Psychiatric Exam Psychiatric exam: Normal Mood - Skin Skin Exam: Warm Assessment and Plan (1) Chest pain Status: Acute (2) PNA (pneumonia) Status: Acute (3) Hyperkalemia Status: Acute (4) Chronic kidney disease, stage IV (severe) Status: Acute (5) [id number] renal failure Status: Acute (6) Hypertensive renal disease Status: Chronic (7) Uncontrolled hypertension Status: Acute (8) Back pain Status: Chronic (9) Weakness Status: Chronic - Assessment and Plan (Free Text) Plan: CXR : L pleural effusion vs infiltrate, continue Levaquin, rest of Tx, CT Chest.
[2017-08-04] MEDS: levoFLOXacin 250 mg in D5W 250 MG/50 ML BAG IVPB SCH ×3 (17:03→19:56)
[2017-08-04] MEDS: EPOETIN ALFA 10,000 UNIT/ML ML IV SCH (18:38)
[2017-08-05] MEDS: Fluticasone-Salmeterol 500-50mcg Diskus IH SCH ×2 (04:59→17:49)
[2017-08-05 05:17] LABS: HEMATOCRIT 23.7 % (35.0-51.0); MEAN CELL VOLUME 82.6 fl (80.0-94.0); MEAN CORPUSCULAR HEMOGLOBIN 26.9 pg (27.0-31.0); MEAN CORPUSCULAR HGB CONC 32.5 g/dL (33.0-37.0); RED CELL DISTRIBUTION WIDTH 17.6 % (11.5-14.5); WHITE BLOOD COUNT 10.3 K/uL (4.8-10.8)
[2017-08-05] MEDS: Multivitamin Vitamin B Complex (Nephro-Vite) Tab PO SCH (08:59)
--- NOTE | 2017-08-05 10:55 | CP.PCM.PN ---
Subjective - Date & Time of Evaluation Date of Evaluation: 08/05/17 Time of Evaluation: 10:50 - Subjective Subjective: Assessment: Stable Hypertensive Chronic Kidney Disease (I12.0) New End stage renal disease (N18.6) dependence on hemodialysis (Z99.2) Anemia (D64.9), Hyperphosphatemia (E83.39), Secondary Hyperparathyroidism (E21.1 ), HTN (I12.0), hypocalcemia Left pleural effusion versus infiltrate Plan: Will do HD again today per his schedule. Continue with Nephrovite 1 tab/day. PRBC as needed for anemia. On LYLE as epogen. continue venofer. Continue with phos binders Continue with calcitriol Last PTH level 983 BP control with meds as ordered d/c femoral hd cathether today discussed w/ [employer] WORKER and SW - set up for outpt chair after treatment and removal of hd cathether cleared from my perspective for discharged Subjective: s/p permacath, feels good Physical Examination: General Appearance: Comfortable, in no acute respiratory distress, co- operative. Vitals reviewed and noted as below Lungs: Normal respiratory rate/effort. Breath sounds decreased at left base Heart: Normal rate. s1s2 normal. No rub or gallop. Extremities: 1-2+ edema. Neurological: Patient is alert, awake and oriented to person, place and time. No focal deficit. Strength bilateral appropriate and equal Skin: Warm and dry. Normal turgor. No rash. Palpitation: Normal elasticity for age Abdomen: Abdomen is soft. Bowel sounds +. There is no abdominal tenderness, no guarding/rigidity or organomegaly : kidney or bladder not palpable Access: tunnelled catheter heent: nc/at, neck upple, oop cler Labs/imaging reviewed. Past medical history, past surgical history, family history, social history, allergy reviewed Objective - Vital Signs/Intake and Output Vital Signs (last 24 hours): Temp Pulse Resp BP Pulse Ox 98.1 F 95 H 18 145/88 93 L 08/05/17 08:00 08/05/17 08:00 08/05/17 08:00 08/05/17 08:00 08/05/17 08:00 - Medications Medications: Current Medications Albuterol/Ipratropium (Duoneb 3 Mg/0.5 Mg (3 Ml) Ud) 3 ml IH Q8H PRN PRN Reason: Shortness of Breath Allopurinol (Zyloprim) 100 mg PO DAILY [facility] Last Admin: 08/05/17 09:01 Dose: 100 mg Amlodipine Besylate (Norvasc) 10 mg PO DAILY [facility] Last Admin: 08/05/17 08:59 Dose: Not Given Calcitriol (Rocaltrol) 0.25 mcg PO DAILY [facility] Last Admin: 08/05/17 09:00 Dose: 0.25 mcg Calcium Acetate (Phoslo) 2,001 mg PO TID [facility] Last Admin: 08/05/17 09:00 Dose: 2,001 mg Clonidine HCl (Catapres) 0.3 mg PO TID [facility] Last Admin: 08/05/17 08:58 Dose: Not Given Enalapril Maleate (Vasotec) 20 mg PO BID [facility] Last Admin: 08/05/17 09:01 Dose: Not Given Epoetin Helder (Procrit) 10,000 unit IV MWF [facility] Last Admin: 08/04/17 18:38 Dose: 10,000 unit Hydralazine HCl (Apresoline) 50 mg PO BID [facility] Last Admin: 08/05/17 08:58 Dose: Not Given Hydromorphone HCl (Dilaudid) 1 mg IVP Q4 PRN PRN Reason: Pain, severe (8-10) Last Admin: 08/05/17 09:06 Dose: 1 mg Iron Sucrose 100 mg/ Sodium (Chloride) 105 mls @ 105 mls/hr IVPB DAILY [facility] Stop: 08/08/17 16:01 Last Admin: 08/05/17 09:01 Dose: 105 mls/hr Levofloxacin/Dextrose (Levaquin 250mg) 250 mg in 50 mls @ 50 mls/hr IVPB Q48H [facility] Last Admin: 08/04/17 19:56 Dose: 50 mls/hr Minoxidil (Minoxidil) 2.5 mg PO BID [facility] Last Admin: 08/05/17 08:59 Dose: 2.5 mg Ondansetron HCl (Zofran Inj) 4 mg IVP Q4 PRN PRN Reason: Nausea/Vomiting Last Admin: 07/29/17 09:15 Dose: 4 mg Fluticasone/Salmeterol (Advair Diskus 500/50) 1 puff IH Q12H [facility] Last Admin: 08/05/17 04:59 Dose: 1 puff Vitamin B Complex/Vit C/Folic Acid (Nephro-Trisha) 1 tab PO DAILY [facility] Last Admin: 08/05/17 08:59 Dose: 1 tab - Labs Labs: 08/05/17 04:35 08/04/17 05:00 PT 12.4 Seconds (9.8-13.1) 07/28/17 17:40 INR 1.1 (0.9-1.2) 07/28/17 17:40 APTT 32.3 Seconds (25.6-37.1) 07/28/17 17:40
[2017-08-05 12:44] VITALS: O2SAT 98
--- NOTE | 2017-08-05 14:49 | CP.PCM.PN ---
Subjective - Date & Time of Evaluation Date of Evaluation: 08/05/17 Time of Evaluation: 14:30 - Subjective Subjective: Vascular Surgery- Dr. Jones Patient seen and examined at bedside. No acute events overnight. Temporary R. femoral dialysis catheter was pulled during encouter. Patient received dialysis through [facility] permacat. Denies fevers, chills, chest pain, shortness of breath, nausea, vomiting, diarrhea Objective - Vital Signs/Intake and Output Vital Signs (last 24 hours): Temp Pulse Resp BP Pulse Ox 98.4 F 102 H 18 156/95 H 98 08/05/17 12:00 08/05/17 12:00 08/05/17 12:00 08/05/17 12:00 08/05/17 12:00 - Medications Medications: Current Medications Albuterol/Ipratropium (Duoneb 3 Mg/0.5 Mg (3 Ml) Ud) 3 ml IH Q8H PRN PRN Reason: Shortness of Breath Allopurinol (Zyloprim) 100 mg PO DAILY [facility] Last Admin: 08/05/17 09:01 Dose: 100 mg Amlodipine Besylate (Norvasc) 10 mg PO DAILY [facility] Last Admin: 08/05/17 08:59 Dose: Not Given Calcitriol (Rocaltrol) 0.25 mcg PO DAILY [facility] Last Admin: 08/05/17 09:00 Dose: 0.25 mcg Calcium Acetate (Phoslo) 2,001 mg PO TID [facility] Last Admin: 08/05/17 13:26 Dose: 2,001 mg Clonidine HCl (Catapres) 0.3 mg PO TID [facility] Last Admin: 08/05/17 13:25 Dose: Not Given Enalapril Maleate (Vasotec) 20 mg PO BID [facility] Last Admin: 08/05/17 09:01 Dose: Not Given Epoetin Helder (Procrit) 10,000 unit IV MWF [facility] Last Admin: 08/04/17 18:38 Dose: 10,000 unit Hydralazine HCl (Apresoline) 50 mg PO BID [facility] Last Admin: 08/05/17 08:58 Dose: Not Given Hydromorphone HCl (Dilaudid) 1 mg IVP Q4 PRN PRN Reason: Pain, severe (8-10) Last Admin: 08/05/17 13:20 Dose: 1 mg Iron Sucrose 100 mg/ Sodium (Chloride) 105 mls @ 105 mls/hr IVPB DAILY [facility] Stop: 08/08/17 16:01 Last Admin: 08/05/17 09:01 Dose: 105 mls/hr Levofloxacin/Dextrose (Levaquin 250mg) 250 mg in 50 mls @ 50 mls/hr IVPB Q48H [facility] Last Admin: 08/04/17 19:56 Dose: 50 mls/hr Minoxidil (Minoxidil) 2.5 mg PO BID [facility] Last Admin: 08/05/17 08:59 Dose: 2.5 mg Ondansetron HCl (Zofran Inj) 4 mg IVP Q4 PRN PRN Reason: Nausea/Vomiting Last Admin: 07/29/17 09:15 Dose: 4 mg Fluticasone/Salmeterol (Advair Diskus 500/50) 1 puff IH Q12H [facility] Last Admin: 08/05/17 04:59 Dose: 1 puff Vitamin B Complex/Vit C/Folic Acid (Nephro-Trisha) 1 tab PO DAILY [facility] Last Admin: 08/05/17 08:59 Dose: 1 tab - Labs Labs: 08/05/17 04:35 08/04/17 05:00 PT 12.4 Seconds (9.8-13.1) 07/28/17 17:40 INR 1.1 (0.9-1.2) 07/28/17 17:40 APTT 32.3 Seconds (25.6-37.1) 07/28/17 17:40 - Constitutional Appears: Non-toxic, No Acute Distress - Head Exam Head Exam: ATRAUMATIC - Eye Exam Eye Exam: EOMI. absent: Scleral icterus - ENT Exam ENT Exam: Mucous Membranes Moist - Respiratory Exam Respiratory Exam: NORMAL BREATHING PATTERN. absent: Accessory Muscle Use, Respiratory Distress - Cardiovascular Exam Cardiovascular Exam: +S1, +S2. absent: Bradycardia, Tachycardia - GI/Abdominal Exam GI & Abdominal Exam: Soft. absent: Distended, Firm, Guarding, Rigid, Tenderness - Extremities Exam Additional comments: R IJ permacath C/D/I no strike through. RJeannette vargas pulled pressure dressing applied - Neurological Exam Neurological Exam: Alert, Awake, Oriented x3 - Psychiatric Exam Psychiatric exam: Normal Affect - Skin Skin Exam: Intact, Warm Assessment and Plan - Assessment and Plan (Free Text) Assessment: 47M s/p R IJ permacath placement POD#1 Plan: - pull R. fem temp dialysis catheter - will receive dialysis from permacath today per Nephro - plan to follow up as outpatient for fistula formation - cleared for discharge from a surgical standpoint - discussed w/ Dr. Karen Lindquist PGY1
[2017-08-05] MEDS: EPOETIN ALFA 10,000 UNIT/ML ML IV SCH (15:44)
[2017-08-05 16:00] VITALS: TEMP 98
--- NOTE | 2017-08-05 17:47 | CP.PCM.PN ---
Subjective - Date & Time of Evaluation Date of Evaluation: 08/05/17 Time of Evaluation: 12:00 - Subjective Subjective: F/U CP / PNA No A/D, c/o of L-S pain, generalized weakness improved. Objective - Vital Signs/Intake and Output Vital Signs (last 24 hours): Temp Pulse Resp BP Pulse Ox 98.0 F 116 H 20 185/107 H 98 08/05/17 15:59 08/05/17 15:59 08/05/17 15:59 08/05/17 15:59 08/05/17 15:59 - Medications Medications: Current Medications Albuterol/Ipratropium (Duoneb 3 Mg/0.5 Mg (3 Ml) Ud) 3 ml IH Q8H PRN PRN Reason: Shortness of Breath Allopurinol (Zyloprim) 100 mg PO DAILY [facility] Last Admin: 08/05/17 09:01 Dose: 100 mg Amlodipine Besylate (Norvasc) 10 mg PO DAILY [facility] Last Admin: 08/05/17 08:59 Dose: Not Given Calcitriol (Rocaltrol) 0.25 mcg PO DAILY [facility] Last Admin: 08/05/17 09:00 Dose: 0.25 mcg Calcium Acetate (Phoslo) 2,001 mg PO TID [facility] Last Admin: 08/05/17 13:26 Dose: 2,001 mg Clonidine HCl (Catapres) 0.3 mg PO TID [facility] Last Admin: 08/05/17 13:25 Dose: Not Given Enalapril Maleate (Vasotec) 20 mg PO BID [facility] Last Admin: 08/05/17 09:01 Dose: Not Given Epoetin Helder (Procrit) 10,000 unit IV MWF [facility] Last Admin: 08/05/17 15:44 Dose: 10,000 unit Hydralazine HCl (Apresoline) 50 mg PO BID [facility] Last Admin: 08/05/17 08:58 Dose: Not Given Hydromorphone HCl (Dilaudid) 1 mg IVP Q4 PRN PRN Reason: Pain, severe (8-10) Last Admin: 08/05/17 13:20 Dose: 1 mg Iron Sucrose 100 mg/ Sodium (Chloride) 105 mls @ 105 mls/hr IVPB DAILY [facility] Stop: 08/08/17 16:01 Last Admin: 08/05/17 09:01 Dose: 105 mls/hr Levofloxacin/Dextrose (Levaquin 250mg) 250 mg in 50 mls @ 50 mls/hr IVPB Q48H [facility] Last Admin: 08/04/17 19:56 Dose: 50 mls/hr Minoxidil (Minoxidil) 2.5 mg PO BID [facility] Last Admin: 08/05/17 08:59 Dose: 2.5 mg Ondansetron HCl (Zofran Inj) 4 mg IVP Q4 PRN PRN Reason: Nausea/Vomiting Last Admin: 07/29/17 09:15 Dose: 4 mg Fluticasone/Salmeterol (Advair Diskus 500/50) 1 puff IH Q12H [facility] Last Admin: 08/05/17 04:59 Dose: 1 puff Vitamin B Complex/Vit C/Folic Acid (Nephro-Trisha) 1 tab PO DAILY [facility] Last Admin: 08/05/17 08:59 Dose: 1 tab - Labs Labs: 08/05/17 04:35 08/04/17 05:00 PT 12.4 Seconds (9.8-13.1) 07/28/17 17:40 INR 1.1 (0.9-1.2) 07/28/17 17:40 APTT 32.3 Seconds (25.6-37.1) 07/28/17 17:40 - Constitutional Appears: No Acute Distress - Head Exam Head Exam: NORMAL INSPECTION - Eye Exam Eye Exam: PERRL - ENT Exam ENT Exam: Normal Exam - Neck Exam Neck Exam: Normal Inspection - Respiratory Exam Respiratory Exam: Decreased Breath Sounds (at bases), Rhonchi (few scattered) Additional comments: R Permacath - Cardiovascular Exam Cardiovascular Exam: REGULAR RHYTHM - GI/Abdominal Exam GI & Abdominal Exam: Soft, Normal Bowel Sounds - Extremities Exam Additional comments: Edema 1+ BLE - Back Exam Back Exam: NORMAL INSPECTION - Neurological Exam Neurological Exam: Alert, Oriented x3. absent: Motor Sensory Deficit - Psychiatric Exam Psychiatric exam: Normal Mood - Skin Skin Exam: Warm Assessment and Plan (1) Chest pain Status: Acute (2) PNA (pneumonia) Status: Acute (3) Hyperkalemia Status: Acute (4) Chronic kidney disease, stage IV (severe) Status: Acute (5) [id number] renal failure Status: Acute (6) Hypertensive renal disease Status: Chronic (7) Uncontrolled hypertension Status: Acute (8) Back pain Status: Chronic (9) Weakness Status: Chronic - Assessment and Plan (Free Text) Plan: For transfuse 2 U PRBC today, to have one unit during HD,has to be cleared by Renal to be discharge. Adenum: Pt is not having HD today. Rx for Levaquin po. Pt can be discharged, see instruction medication sheet, f/u in my office in one week.
[2017-08-05 20:29] VITALS: BP 158/90; RESP 18
[2017-08-05 20:44] VITALS: PULSE 110
[2017-08-07 13:46] LABS: ALDOSTERONE 7 ng/dL
== END 2017-08-05 21:37 | disposition home or self-care (01) | DRG 568 ==
LOC: H.ER 15:25 → H.ERHOLD 18:22 → H.ICU/CCU 20:41 → H.TEL 07-30 13:57
PROVIDERS: ADMIT Internal Medicine Pulmonary Disease; ATTEND Internal Medicine Pulmonary Disease
PROC: 30233K1 Transfusion of Nonautologous Frozen Plasma into Peripheral Vein, Percutaneous Approach (ICD-10-PCS; 2017-07-28)
PROC: 06HM33Z Insertion of Infusion Device into Right Femoral Vein, Percutaneous Approach (ICD-10-PCS; principal; 2017-07-29)
PROC: 5A1D70Z Performance of Urinary Filtration, Intermittent, Less than 6 Hours Per Day (ICD-10-PCS; 2017-07-29)
PROC: 30233N1 Transfusion of Nonautologous Red Blood Cells into Peripheral Vein, Percutaneous Approach (ICD-10-PCS; 2017-07-29)
PROC: B54BZZA Ultrasonography of Right Lower Extremity Veins, Guidance (ICD-10-PCS; 2017-07-29)
PROC: 05HM33Z Insertion of Infusion Device into Right Internal Jugular Vein, Percutaneous Approach (ICD-10-PCS; 2017-08-04)
PROC: B543ZZA Ultrasonography of Right Jugular Veins, Guidance (ICD-10-PCS; 2017-08-04)
DX: I12.0 Hypertensive chronic kidney disease with stage 5 chronic kidney disease or end stage renal disease (principal); N17.9 Acute kidney failure, unspecified; E87.2 Acidosis; N18.5 Chronic kidney disease, stage 5; E87.5 Hyperkalemia; J90 Pleural effusion, not elsewhere classified; E11.22 Type 2 diabetes mellitus with diabetic chronic kidney disease; Z99.2 Dependence on renal dialysis; N25.81 Secondary hyperparathyroidism of renal origin; E83.51 Hypocalcemia; E83.39 Other disorders of phosphorus metabolism; D64.9 Anemia, unspecified; J45.909 Unspecified asthma, uncomplicated; Z91.19 Patient's noncompliance with other medical treatment and regimen; F17.210 Nicotine dependence, cigarettes, uncomplicated

== ENCOUNTER 2017-09-29 11:26 | Inpatient (IN) | payer MEDICAID ==
[2017-09-29 11:51] VITALS: BMI 24.0
--- NOTE | 2017-09-29 13:36 | ED PDOC ---
HPI: General Adult Time Seen by Provider: 09/29/17 12:59 Chief Complaint (Nursing): Abdominal Pain Chief Complaint (Provider): Rectal Bleeding History Per: Patient History/Exam Limitations: no limitations Onset/Duration Of Symptoms: Days (x 2) Current Symptoms Are (Timing): Still Present Additional Complaint(s): David is a 47 y/o male who presents to the ED c/o bright red rectal bleeding after defecation. Patient states he had been constipated and pushing and bleeding started after. He denies vomiting or fever but says that he has had loose watery stools since being constipated. He also complains of umbilical pain that is worse when straining. PMD: Rommel Harrell Past Medical History Reviewed: Historical Data, Nursing Documentation, Vital Signs Vital Signs: Last Vital Signs Temp 99.2 F 09/29/17 11:52 Pulse 96 H 09/29/17 11:52 Resp 16 09/29/17 11:52 BP 190/128 H 09/29/17 11:52 Pulse Ox 99 09/29/17 13:43 - Medical History PMH: Anemia, Asthma, Depression (per old record, but pt does not take meds), HTN , Hypercholesterolemia, Chronic Kidney Disease (on dialysis) - Family History Family History: States: Diabetes, Hypertension - Immunization History Hx Tetanus Toxoid Vaccination: Yes Hx Influenza Vaccination: No Hx Pneumococcal Vaccination: No - Home Medications Home Medications: Ambulatory Orders Medication Instructions Recorded Albuterol/Ipratropium [Duoneb 3 3 ml IH Q8H PRN 07/28/17 mg/0.5 mg (3 ml) UD] Allopurinol [Zyloprim] 100 mg PO DAILY 07/28/17 Aspirin [Ecotrin] 81 mg PO DAILY 07/28/17 Enalapril Maleate [Vasotec] 20 mg PO BID 07/28/17 Fluticasone Nasal [Flonase] 1 spray JOB DAILY PRN 07/28/17 Fluticasone/Salmeterol 500/50 1 puff IH Q12H 07/28/17 [Advair Diskus 500/50] Furosemide [Lasix] 40 mg PO DAILY 07/28/17 Levalbuterol Tartrate [Xopenex Hfa] 1 puff IH Q4H 07/28/17 Levocetirizine Dihydrochloride 5 mg PO DAILY PRN 07/28/17 [Xyzal] Minoxidil 2.5 mg PO BID 07/28/17 Oxycodone HCl/Acetaminophen 1 tab PO Q4H PRN 07/28/17 [Percocet 10-325 mg Tablet] Promethazine HCl/Codeine 10 ml PO Q4H PRN 07/28/17 [Prometh-Codein 6.25-10 mg/5 ml] amLODIPine [Norvasc] 10 mg PO DAILY 07/28/17 cloNIDine [Catapres] 0.3 mg PO TID 07/28/17 hydrALAZINE [Apresoline] 50 mg PO BID 07/28/17 Calcium Acetate [Phoslo] 2,001 mg PO TID #90 tab 08/05/17 Levofloxacin [Levaquin] 500 mg PO DAILY #5 tablet 08/05/17 - Allergies Allergies/Adverse Reactions: Allergies Allergy/AdvReac Type Severity Reaction Status Date / Time No Known Allergies Allergy Verified 07/28/17 15:35 Review of Systems ROS Statement: Except As Marked, All Systems Reviewed And Found Negative Constitutional: Negative for: Fever Gastrointestinal: Positive for: Abdominal Pain (umbilical), Diarrhea, Constipation, Other (rectal bleeding). Negative for: Vomiting Physical Exam - Reviewed Nursing Documentation Reviewed: Yes Vital Signs Reviewed: Yes - Physical Exam Cardiovascular/Chest: Positive for: Regular Rate, Rhythm. Negative for: Murmur Respiratory: Positive for: Normal Breath Sounds. Negative for: Respiratory Distress Gastrointestinal/Abdominal: Positive for: Soft, Other (umbilical hernia nonprotruding, nonincarcerated). Negative for: Tenderness Rectal: Positive for: Other (anal fissures palpated; no gross bleeding). Negative for: Mass Extremity: Negative for: Tenderness, Pedal Edema, Swelling Neurologic/Psych: Positive for: Alert, Oriented - Laboratory Results Result Diagrams: 09/29/17 14:38 09/29/17 14:38 - ECG O2 Sat by Pulse Oximetry: 99 (RA) Pulse Ox Interpretation: Normal Medical Decision Making Medical Decision Making: Time: 13:25 Initial Impression: Rectal bleeding Initial Plan: --CT Abdomen & Pelvis w/o Contrast --EKG --CMP --CBC Scribe Attestation: Documented by Bakari Partida, acting as a scribe for Chad Gillis MD. Provider Scribe Attestation: All medical record entries made by the Scribe were at my direction and personally dictated by me. I have reviewed the chart and agree that the record accurately reflects my personal performance of the history, physical exam, medical decision making, and the department course for this patient. I have also personally directed, reviewed, and agree with the discharge instructions and disposition. Disposition - Clinical Impression Clinical Impression: Colitis, GI bleed, ESRD (end stage renal disease) on dialysis - Patient ED Disposition Is Patient to be Admitted: Yes - Disposition Disposition Time: 15:37 Condition: FAIR Forms: [email or web address] (Italian) - Pt Status Changed To: Hospital Disposition Of: Inpatient - Admit Certification Admit to Inpatient:: After my assessment, the patient will require hospitalization for at least two midnights. This is because of the severity of symptoms shown, intensity of services needed, and/or the medical risk in this patient being treated as an outpatient. - POA Present On Arrival: None
[2017-09-29 14:48] LABS: BASO # 0.2 K/uL (0.0-0.2); BASO % 1.4 % (0.0-2.0); EOS # 0.1 K/uL (0.0-0.7); HEMOGLOBIN 12.8 g/dL (12.0-18.0); LYMPH # 1.1 K/uL (1.0-4.3); LYMPH % 9.4 % (20.0-40.0); MEAN CORPUSCULAR HEMOGLOBIN 25.7 pg (27.0-31.0); MEAN CORPUSCULAR HGB CONC 31.8 g/dL (33.0-37.0); MEAN PLATELET VOLUME 10.1 fl (7.2-11.7); MONO # 0.4 K/uL (0.0-0.8); MONO % 3.4 % (0.0-10.0); NEUT # 10.1 K/uL (1.8-7.0); NEUT % 84.8 % (50.0-75.0); NRBC % 0.2 % (0.0-0.0); PLATELET COUNT 247 K/uL (130-400); RED CELL DISTRIBUTION WIDTH 19.7 % (11.5-14.5); WHITE BLOOD COUNT 11.9 K/uL (4.8-10.8)
--- NOTE | 2017-09-29 15:02 | CT ---
PROCEDURE: CT Abdomen and Pelvis without intravenous contrast HISTORY: r/o kidney stone COMPARISON: None. TECHNIQUE: Contiguous images were obtained from the domes of the diaphragms to the upper thighs without the administration of intravenous contrast. Oral contrast was not administered. Radiation dose: Total exam DLP = 617 mGy-cm. This CT exam was performed using one or more of the following dose reduction techniques: Automated exposure control, adjustment of the mA and/or kV according to patient size, and/or use of iterative reconstruction technique. FINDINGS: LOWER THORAX: Cardiomegaly. Partially imaged cardiac device lead. Small pericardial effusion. LIVER: Unremarkable. No gross lesion or ductal dilatation. GALLBLADDER AND BILE DUCTS: Distended with wall thickening/edema. Dilated CBD measuring up to 1.2 centimeter. PANCREAS: Unremarkable. No gross lesion or ductal dilatation. SPLEEN: Unremarkable. ADRENALS: Left adrenal nodular thickening. KIDNEYS AND URETERS: Right mid/ lower pole 1.5 centimeter hyper attenuating structure. Multiple left renal cysts, largest measures 2.2 x 2.0 centimeter in the left lower pole. No hydronephrosis. No solid mass. VASCULATURE: Calcific atherosclerosis. No aortic aneurysm. BOWEL: Heterogeneous appearance in the region of the ampulla. Severe wall thickening and edema extending from the mid transverse colon to the the splenic flexure/ proximal descending colon. Moderate to severe descending and sigmoid diverticulosis. APPENDIX: Unremarkable. Normal appendix. PERITONEUM: Unremarkable. Small volume pelvic free fluid. No free air. LYMPH NODES: Unremarkable. No enlarged lymph nodes. BLADDER: Unremarkable. REPRODUCTIVE: Unremarkable. BONES: No acute fracture. OTHER FINDINGS: None. IMPRESSION: Severe mid transverse to splenic flexure/ proximal descending colitis which may be infectious/ inflammatory/ischemic in etiology. No free air or obvious pneumatosis identified. Heterogeneous appearance of the duodenum in the region of the ampulla. Dilated CBD (1.2 centimeter) and distended gallbladder with nonspecific wall thickening/edema. Contrast-enhanced MRI/MRCP can be obtained for further evaluation. Acute cholecystitis is not excluded. Nonspecific right mid/lower pole 1.5 centimeter hyperattenuating structure which may represent a hemorrhagic/proteinaceous cyst. This can likely be evaluated on above recommended MRI. Alternatively, renal ultrasound can also be obtained for further evaluation. Additional findings as above. Findings conveyed to PRAVEENA [place] by Dr. Adorno at 2:55 p.m. on 09/29/2017.
[2017-09-29 15:11] LABS: ALB/GLOB RATIO 1.1 (1.0-2.1); ALBUMIN 4.1 g/dL (3.5-5.0); CALCIUM 9.3 mg/dL (8.4-10.2)
[2017-09-29] MEDS ORDERED: metroNIDAZOLE 500mg/100ml NS 100 ML IVPB STA (15:32)
[2017-09-29] MEDS ORDERED: Ciprofloxacin 400mg/200ml D5W 400 MG/200 ML BAG IVPB STA (15:32)
[2017-09-29] MEDS ORDERED: Ciprofloxacin 400mg/200ml D5W 400 MG/200 ML BAG IVPB ONE (16:22)
[2017-09-29] MEDS ORDERED: metroNIDAZOLE 500mg/100ml NS 100 ML IVPB ONE (16:23)
[2017-09-29 16:30] LABS: ANISOCYTOSIS SLIGHT; BANDS 2 % (0-2); BASOPHIL 1 % (0-2); EOSINOPHIL 1 % (0-7); HYPOCHROMIC SLIGHT; LYMPHOCYTE 9 % (20-50); MICROCYTOSIS SLIGHT; MONOCYTE 5 % (0-10); NEUTROPHIL 81 % (42-75); PLATELET ESTIMATE NORMAL (NORMAL); POIKILOCYTOSIS SLIGHT; REACTIVE LYMPHOCYTES 1 % (0-0); TOTAL CELLS COUNTED 100
[2017-09-29] MEDS ORDERED: Promethazine/Cod 6.25mg-10mg/5ml Syr UD PO PRN (22:54)
[2017-09-30] MEDS ORDERED: Ciprofloxacin 400mg/200ml D5W 400 MG/200 ML BAG IVPB STA
[2017-09-30] MEDS: metroNIDAZOLE 500mg/100ml NS 100 ML IVPB SCH ×3 (00:36→18:08)
[2017-09-30] MEDS: Albuterol-Ipratrop 3 mg / 0.5 (3 ml) UD IH SCH ×3 (07:53→19:47)
[2017-09-30] MEDS: Budesonide 0.5 mg/2 ml Inhal Susp UD IH SCH ×2 (07:53→19:47)
[2017-09-30 08:07] LABS: HEMOGLOBIN 11.4 g/dL (12.0-18.0); MEAN CELL VOLUME 80.5 fl (80.0-94.0); MEAN CORPUSCULAR HEMOGLOBIN 25.7 pg (27.0-31.0); RBC 4.43 Mil/uL (4.40-5.90); RED CELL DISTRIBUTION WIDTH 19.7 % (11.5-14.5)
[2017-09-30 09:00] LABS: T4 6.57 ug/dl (5.5-11.0)
[2017-09-30] MEDS ORDERED: Ciprofloxacin 400mg/200ml D5W 400 MG/200 ML BAG IVPB SCH (09:00)
[2017-09-30 09:05] LABS: ALB/GLOB RATIO 1.1 (1.0-2.1); ALBUMIN 3.3 g/dL (3.5-5.0); CALCIUM 8.8 mg/dL (8.4-10.2)
[2017-09-30] MEDS: [UNRECOGNIZED DRUG - OTHER] PO SCH (09:40)
[2017-09-30] MEDS ORDERED: Ciprofloxacin 200mg/100ml D5W 100 ML IVPB SCH (11:15)
[2017-09-30] MEDS ORDERED: Oxycodone/Acetaminophen 5/325 mg Tab PO PRN (12:18)
--- NOTE | 2017-09-30 13:12 | CP.PCM.CON ---
History of Present Illness - History of Present Illness History of Present Illness: dictated Past Patient History - Past Medical History & Family History Past Medical History?: Yes - Past Social History Smoking Status: Light Smoker < 10 Cigarettes Daily - CARDIAC Hx Hypercholesterolemia: Yes Hx Hypertension: Yes - PULMONARY Hx Asthma: Yes - NEUROLOGICAL Hx Neurological Disorder: No - HEENT Hx HEENT Problems: No - RENAL Hx Chronic Kidney Disease: Yes (on dialysis) Hx Dialysis: Yes Hx Renal Failure: Yes - ENDOCRINE/METABOLIC Hx Endocrine Disorders: No - HEMATOLOGICAL/ONCOLOGICAL Hx Anemia: Yes - INTEGUMENTARY Hx Dermatological Problems: No - MUSCULOSKELETAL/RHEUMATOLOGICAL Hx Falls: No - GASTROINTESTINAL Hx Gastrointestinal Disorders: No Hx Colitis: Yes - GENITOURINARY/GYNECOLOGICAL Hx Genitourinary Disorders: No - PSYCHIATRIC Hx Depression: Yes Hx Substance Use: No - SURGICAL HISTORY Hx Surgeries: No - ANESTHESIA Hx Anesthesia: Yes Hx Anesthesia Reactions: No Hx Malignant Hyperthermia: No Meds Allergies/Adverse Reactions: Allergies Allergy/AdvReac Type Severity Reaction Status Date / Time No Known Allergies Allergy Verified 07/28/17 15:35 - Medications Medications: Current Medications Albuterol/Ipratropium (Duoneb 3 Mg/0.5 Mg (3 Ml) Ud) 3 ml IH RTID [facility] Last Admin: 09/30/17 07:53 Dose: 3 ml Allopurinol (Zyloprim) 100 mg PO DAILY [facility] Last Admin: 09/30/17 11:18 Dose: 100 mg Amlodipine Besylate (Norvasc) 10 mg PO DAILY [facility] Last Admin: 09/30/17 09:44 Dose: 10 mg Aspirin (Ecotrin) 81 mg PO DAILY [facility] Last Admin: 09/30/17 09:44 Dose: 81 mg Budesonide (Pulmicort Respules) 0.5 mg IH RBID [facility] Last Admin: 09/30/17 07:53 Dose: 0.5 mg Calcium Acetate (Phoslo) 2,001 mg PO TID [facility] Last Admin: 09/30/17 09:41 Dose: 2,001 mg Cinacalcet (Sensipar) 30 mg PO DAILY [facility] Last Admin: 09/30/17 09:44 Dose: 30 mg Clonidine HCl (Catapres) 0.3 mg PO TID [facility] Last Admin: 09/30/17 09:41 Dose: 0.3 mg Enalapril Maleate (Vasotec) 20 mg PO BID [facility] Last Admin: 09/30/17 09:18 Dose: 20 mg Fluticasone Propionate (Flonase) 1 spr JOB DAILY PRN PRN Reason: Allergy symptoms Furosemide (Lasix) 40 mg PO DAILY [facility] Last Admin: 09/30/17 09:43 Dose: 40 mg Home Med (Patient Own Control [Patient Own Control]) 1 cap PO DAILY [facility] Last Admin: 09/30/17 09:40 Dose: 1 cap Home Med (Promethazine Hcl/Codeine [Prometh-Codein 6.25-10 Mg/5 Ml]) 10 ml PO PRN PRN PRN Reason: Cough Hydralazine HCl (Apresoline) 50 mg PO BID [facility] Last Admin: 09/30/17 09:42 Dose: 50 mg Hydromorphone HCl (Dilaudid) 3 mg IVP Q4H PRN PRN Reason: Pain, severe (8-10) Last Admin: 09/30/17 09:36 Dose: 3 mg Metronidazole (Flagyl 500mg/100ml Ns) 100 mls @ 100 mls/hr IVPB Q8 JUAN DAVID PRN Reason: Protocol Last Admin: 09/30/17 09:17 Dose: 100 mls/hr Ciprofloxacin (Cipro 200mg/100ml D5w) 100 mls @ 100 mls/hr IVPB Q24H [facility] Loratadine (Claritin) 10 mg PO DAILY PRN PRN Reason: Allergy symptoms Last Admin: 09/30/17 09:43 Dose: 10 mg Metoprolol Succinate (Toprol Xl) 100 mg PO DAILY [facility] Minoxidil (Minoxidil) 2.5 mg PO BID [facility] Last Admin: 09/30/17 09:42 Dose: 2.5 mg Oxycodone/Acetaminophen (Percocet 5/325 Mg Tab) 1 tab PO Q4 PRN PRN Reason: Pain, moderate (4-7) Stop: 10/03/17 12:19 Results - Vital Signs Recent Vital Signs: Last Vital Signs Temp 97.8 F 09/30/17 12:35 Pulse 73 09/30/17 12:35 Resp 18 09/30/17 12:35 BP 180/111 H 09/30/17 12:35 Pulse Ox 98 09/30/17 12:35 - Labs Result Diagrams: 09/30/17 07:58 09/30/17 07:58 Labs: Laboratory Results - last 24 hr 09/29/17 09/29/17 09/30/17 14:38 14:38 07:58 WBC 11.9 H 9.0 RBC 5.00 4.43 Hgb 12.8 D 11.4 L Hct 40.4 35.7 MCV 81.0 80.5 MCH 25.7 L 25.7 L MCHC 31.8 L 32.0 L RDW 19.7 H 19.7 H Plt Count 247 221 MPV 10.1 Neut % (Auto) 84.8 H Lymph % (Auto) 9.4 L Daniels % (Auto) 3.4 Eos % (Auto) 1.0 Baso % (Auto) 1.4 Neut # 10.1 H Lymph # 1.1 Daniels # 0.4 Eos # 0.1 Baso # 0.2 Neutrophils % (Manual) 81 H Band Neutrophils % 2 Lymphocytes % (Manual) 9 L Reactive Lymphs % 1 H Monocytes % (Manual) 5 Eosinophils % (Manual) 1 Basophils % (Manual) 1 Platelet Estimate Normal Hypochromasia (manual) Slight Poikilocytosis (manual Slight Anisocytosis (manual) Slight Microcytosis (manual) Slight Sodium 140 Potassium 4.9 Chloride 98 Carbon Dioxide 22 Anion Gap 25 H BUN 62 H Creatinine 12.7 H* Est GFR ( Amer) 5 Est GFR (Non-Af Amer) 4 Random Glucose 123 H Calcium 9.3 Total Bilirubin 0.6 AST 25 ALT 14 L D Alkaline Phosphatase 54 Total Protein 7.8 Albumin 4.1 Globulin 3.6 Albumin/Globulin Ratio 1.1 Triglycerides Cholesterol LDL Cholesterol Direct HDL Cholesterol Thyroxine (T4) TSH 3rd Generation 09/30/17 07:58 WBC RBC Hgb Hct MCV MCH MCHC RDW Plt Count MPV Neut % (Auto) Lymph % (Auto) Daniels % (Auto) Eos % (Auto) Baso % (Auto) Neut # Lymph # Daniels # Eos # Baso # Neutrophils % (Manual) Band Neutrophils % Lymphocytes % (Manual) Reactive Lymphs % Monocytes % (Manual) Eosinophils % (Manual) Basophils % (Manual) Platelet Estimate Hypochromasia (manual) Poikilocytosis (manual Anisocytosis (manual) Microcytosis (manual) Sodium 139 Potassium 4.5 Chloride 100 Carbon Dioxide 22 Anion Gap 22 H BUN 67 H Creatinine 14.2 H* Est GFR ( Amer) 5 Est GFR (Non-Af Amer) 4 Random Glucose 94 Calcium 8.8 Total Bilirubin 0.4 AST 15 L D ALT 21 D Alkaline Phosphatase 50 Total Protein 6.4 Albumin 3.3 L Globulin 3.0 Albumin/Globulin Ratio 1.1 Triglycerides 66 Cholesterol 95 LDL Cholesterol Direct 41 HDL Cholesterol 26 L Thyroxine (T4) 6.57 TSH 3rd Generation 4.44
--- NOTE | 2017-09-30 13:17 | CP.PCM.PN ---
Subjective - Date & Time of Evaluation Date of Evaluation: 09/30/17 Time of Evaluation: 13:18 - Subjective Subjective: dialysis note dictated Objective - Vital Signs/Intake and Output Vital Signs (last 24 hours): Temp Pulse Resp BP Pulse Ox 97.8 F 73 18 180/111 H 98 09/30/17 12:35 09/30/17 12:35 09/30/17 12:35 09/30/17 12:35 09/30/17 12:35 - Medications Medications: Current Medications Albuterol/Ipratropium (Duoneb 3 Mg/0.5 Mg (3 Ml) Ud) 3 ml IH RTID [facility] Last Admin: 09/30/17 07:53 Dose: 3 ml Allopurinol (Zyloprim) 100 mg PO DAILY [facility] Last Admin: 09/30/17 11:18 Dose: 100 mg Amlodipine Besylate (Norvasc) 10 mg PO DAILY [facility] Last Admin: 09/30/17 09:44 Dose: 10 mg Aspirin (Ecotrin) 81 mg PO DAILY [facility] Last Admin: 09/30/17 09:44 Dose: 81 mg Budesonide (Pulmicort Respules) 0.5 mg IH RBID [facility] Last Admin: 09/30/17 07:53 Dose: 0.5 mg Calcium Acetate (Phoslo) 2,001 mg PO TID [facility] Last Admin: 09/30/17 09:41 Dose: 2,001 mg Cinacalcet (Sensipar) 30 mg PO DAILY [facility] Last Admin: 09/30/17 09:44 Dose: 30 mg Clonidine HCl (Catapres) 0.3 mg PO TID [facility] Last Admin: 09/30/17 09:41 Dose: 0.3 mg Enalapril Maleate (Vasotec) 20 mg PO BID [facility] Last Admin: 09/30/17 09:18 Dose: 20 mg Fluticasone Propionate (Flonase) 1 spr JOB DAILY PRN PRN Reason: Allergy symptoms Furosemide (Lasix) 40 mg PO DAILY [facility] Last Admin: 09/30/17 09:43 Dose: 40 mg Home Med (Patient Own Control [Patient Own Control]) 1 cap PO DAILY [facility] Last Admin: 09/30/17 09:40 Dose: 1 cap Home Med (Promethazine Hcl/Codeine [Prometh-Codein 6.25-10 Mg/5 Ml]) 10 ml PO PRN PRN PRN Reason: Cough Hydralazine HCl (Apresoline) 50 mg PO BID [facility] Last Admin: 09/30/17 09:42 Dose: 50 mg Hydromorphone HCl (Dilaudid) 3 mg IVP Q4H PRN PRN Reason: Pain, severe (8-10) Last Admin: 09/30/17 09:36 Dose: 3 mg Metronidazole (Flagyl 500mg/100ml Ns) 100 mls @ 100 mls/hr IVPB Q8 JUAN DAVID PRN Reason: Protocol Last Admin: 09/30/17 09:17 Dose: 100 mls/hr Ciprofloxacin (Cipro 200mg/100ml D5w) 100 mls @ 100 mls/hr IVPB Q24H [facility] Loratadine (Claritin) 10 mg PO DAILY PRN PRN Reason: Allergy symptoms Last Admin: 09/30/17 09:43 Dose: 10 mg Metoprolol Succinate (Toprol Xl) 100 mg PO DAILY [facility] Minoxidil (Minoxidil) 2.5 mg PO BID [facility] Last Admin: 09/30/17 09:42 Dose: 2.5 mg Oxycodone/Acetaminophen (Percocet 5/325 Mg Tab) 1 tab PO Q4 PRN PRN Reason: Pain, moderate (4-7) Stop: 10/03/17 12:19 - Labs Labs: 09/30/17 07:58 09/30/17 07:58
[2017-09-30] MEDS: Ciprofloxacin 200mg/100ml D5W 100 ML IVPB SCH (14:37)
[2017-09-30] MEDS: Metoprolol Succinate 100 mg XL Tab PO SCH (14:38)
--- NOTE | 2017-09-30 15:07 | CP.PCM.HP ---
History of Present Illness - History of Present Illness History of Present Illness: CC: Rectal bleeding. 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 Pt stated has been having constipation since was Dx with Renal failure and having HD, In the past 5 days prior to admission he began having watery stool and noticed bright Red blood after defecation associated to abdominal pain, umbilical area, pain reported to be cramping type, moderate to severe intensity 9:10 Worsening symptom: CT Abdomen on DOA: + Colitis, c/o of pain in low back and R hip, L shoulder from previous trauma. Aggravated factor: Increased pain when straining, food. Pt denied: Fever, chills, n/v, urinary symptoms, CP, palpitations, SOB, syncope , sick contact, recent travel out of [facility] [email or web address] Present on Admission - Present on Admission Any Indicators Present on Admission: No Review of Systems - Constitutional Constitutional: As Per HPI - EENT Eyes: Other (negative) Ears: Other (negative) Nose/Mouth/Throat: Nasal Congestion - Cardiovascular Cardiovascular: Other (negative) - Respiratory Respiratory: Other (negative) - Gastrointestinal Gastrointestinal: Abdominal Pain, Hematochezia, Loose Stools - Genitourinary Genitourinary: Other (negative) - Musculoskeletal Musculoskeletal: Back Pain, Other (R hip and L shoulder pain) - Integumentary Integumentary: Other (negative) - Neurological Neurological: Other (negative) - Psychiatric Psychiatric: Other (negative) - Endocrine Endocrine: Other (negative) - Hematologic/Lymphatic Hematologic: Other (negative) Past Patient History - Past Medical History & Family History Past Medical History?: Yes Pertinent Family History: DM, HTN - Past Social History Smoking Status: Light Smoker < 10 Cigarettes Daily Alcohol: None Drugs: Denies Home Situation {Lives}: With Family - CARDIAC Hx Cardiac Disorders: Yes Hx Hypercholesterolemia: Yes Hx Hypertension: Yes - PULMONARY Hx Respiratory Disorders: Yes Hx Asthma: Yes - NEUROLOGICAL Hx Neurological Disorder: No - HEENT Hx HEENT Problems: No - RENAL Hx Chronic Kidney Disease: Yes (on dialysis) Hx Dialysis: Yes Hx Renal Failure: Yes - ENDOCRINE/METABOLIC Hx Endocrine Disorders: No - HEMATOLOGICAL/ONCOLOGICAL Hx Blood Disorders: Yes Hx Anemia: Yes Hx Blood Transfusion Reaction: Yes - INTEGUMENTARY Hx Dermatological Problems: No - MUSCULOSKELETAL/RHEUMATOLOGICAL Hx Musculoskeletal Disorders: Yes Hx Back Pain: Yes Hx Falls: No - GASTROINTESTINAL Hx Gastrointestinal Disorders: Yes Hx Colitis: Yes - GENITOURINARY/GYNECOLOGICAL Hx Genitourinary Disorders: No - PSYCHIATRIC Hx Psychophysiologic Disorder: Yes Hx Depression: Yes Hx Substance Use: No - SURGICAL HISTORY Hx Surgeries: No - ANESTHESIA Hx Anesthesia: Yes Hx Anesthesia Reactions: No Hx Malignant Hyperthermia: No Meds Home Medications: Home Medication List Medication Instructions Recorded Confirmed Type Ciprofloxacin HCl [Cipro] 250 mg PO DAILY #8 tablet 10/01/17 Rx Metoprolol Succinate [Toprol XL] 100 mg PO DAILY #30 tab 10/01/17 Rx Metronidazole [Flagyl] 500 mg PO Q8 #24 tablet 10/01/17 Rx Allergies/Adverse Reactions: Allergies Allergy/AdvReac Type Severity Reaction Status Date / Time No Known Allergies Allergy Verified 07/28/17 15:35 Physical Exam - Constitutional Appears: No Acute Distress - Head Exam Head Exam: NORMAL INSPECTION - Eye Exam Eye Exam: PERRL - ENT Exam ENT Exam: Normal Exam - Neck Exam Neck exam: Positive for: Normal Inspection - Respiratory Exam Respiratory Exam: NORMAL BREATHING PATTERN - Cardiovascular Exam Cardiovascular Exam: REGULAR RHYTHM - GI/Abdominal Exam GI & Abdominal Exam: Normal Bowel Sounds, Soft, Tenderness - Extremities Exam Extremities exam: Positive for: normal inspection - Back Exam Back exam: NORMAL INSPECTION - Neurological Exam Neurological exam: Alert, Oriented x3 Additional comments: No motor sensory deficit. - Psychiatric Exam Psychiatric exam: Normal Mood - Skin Skin Exam: Warm Results - Vital Signs Recent Vital Signs: Last Vital Signs Temp 97.8 F 09/30/17 12:35 Pulse 63 09/30/17 14:38 Resp 18 09/30/17 12:35 BP 163/105 H 09/30/17 14:38 Pulse Ox 98 09/30/17 12:35 reviewed Torrie - Labs Result Diagrams: 09/30/17 07:58 09/30/17 07:58 Labs: Laboratory Results - last 24 hr 09/29/17 09/29/17 09/30/17 14:38 14:38 07:58 WBC 9.0 RBC 4.43 Hgb 11.4 L Hct 35.7 MCV 80.5 MCH 25.7 L MCHC 32.0 L RDW 19.7 H Plt Count 221 Neutrophils % (Manual) 81 H Band Neutrophils % 2 Lymphocytes % (Manual) 9 L Reactive Lymphs % 1 H Monocytes % (Manual) 5 Eosinophils % (Manual) 1 Basophils % (Manual) 1 Platelet Estimate Normal Hypochromasia (manual) Slight Poikilocytosis (manual Slight Anisocytosis (manual) Slight Microcytosis (manual) Slight Sodium 140 Potassium 4.9 Chloride 98 Carbon Dioxide 22 Anion Gap 25 H BUN 62 H Creatinine 12.7 H* Est GFR ( Amer) 5 Est GFR (Non-Af Amer) 4 Random Glucose 123 H Calcium 9.3 Total Bilirubin 0.6 AST 25 ALT 14 L D Alkaline Phosphatase 54 Total Protein 7.8 Albumin 4.1 Globulin 3.6 Albumin/Globulin Ratio 1.1 Triglycerides Cholesterol LDL Cholesterol Direct HDL Cholesterol Thyroxine (T4) TSH 3rd Generation 09/30/17 07:58 WBC RBC Hgb Hct MCV MCH MCHC RDW Plt Count Neutrophils % (Manual) Band Neutrophils % Lymphocytes % (Manual) Reactive Lymphs % Monocytes % (Manual) Eosinophils % (Manual) Basophils % (Manual) Platelet Estimate Hypochromasia (manual) Poikilocytosis (manual Anisocytosis (manual) Microcytosis (manual) Sodium 139 Potassium 4.5 Chloride 100 Carbon Dioxide 22 Anion Gap 22 H BUN 67 H Creatinine 14.2 H* Est GFR ( Amer) 5 Est GFR (Non-Af Amer) 4 Random Glucose 94 Calcium 8.8 Total Bilirubin 0.4 AST 15 L D ALT 21 D Alkaline Phosphatase 50 Total Protein 6.4 Albumin 3.3 L Globulin 3.0 Albumin/Globulin Ratio 1.1 Triglycerides 66 Cholesterol 95 LDL Cholesterol Direct 41 HDL Cholesterol 26 L Thyroxine (T4) 6.57 TSH 3rd Generation 4.44 reviewed J.P. - Imaging and Cardiology CT scan - abdomen Status: Report reviewed by me (J.P.) CT scan - pelvis Status: Report reviewed by me (J.P.) Assessment & Plan (1) Colitis Status: Acute Priority: High (2) Abdominal pain Status: Acute Priority: High (3) ESRD (end stage renal disease) on dialysis Status: Chronic Priority: High (4) HTN (hypertension) Status: Chronic Priority: High (5) Back pain Status: Chronic Priority: High (6) History of asthma Status: Chronic - Assessment and Plan (Free Text) Plan: F/u U C-S, Blood C-S, f/u EKG, Continue Cipro, Flagyl, Toprol XL, Catapres, Norvasc, Flagyl, Dilantin, Duoneb, Claritin and rest of Tx. Renal consult appreciated. GI and Vascular consult. - Date & Time Date: 09/30/17 Time: 11:40
--- NOTE | 2017-09-30 15:59 | CP.PCM.CON ---
History of Present Illness - History of Present Illness History of Present Illness: Vascular Surgery: Dr Jones Pt is a 47M with history of ESRD on HD via permacath. Pt currently admitted for colitis. Reports he is feeling better but still weak and fatigued with minimal abdominal pain. Pt reports he has been approached several times regarding fistula placement, and he has not been prepared because he is always sick. Pt currently feels the same way, though he agrees to get vein mapping tomorrow. Pt states he will consider AVF before discharge if feeling improved. Review of Systems - Constitutional Constitutional: absent: Chills - Cardiovascular Cardiovascular: absent: Chest Pain - Respiratory Respiratory: absent: Cough, Dyspnea - Gastrointestinal Gastrointestinal: Abdominal Pain, Diarrhea. absent: Nausea, Vomiting Past Patient History - Past Medical History & Family History Past Medical History?: Yes - Past Social History Smoking Status: Light Smoker < 10 Cigarettes Daily - CARDIAC Hx Hypercholesterolemia: Yes Hx Hypertension: Yes - PULMONARY Hx Asthma: Yes - NEUROLOGICAL Hx Neurological Disorder: No - HEENT Hx HEENT Problems: No - RENAL Hx Chronic Kidney Disease: Yes (on dialysis) Hx Dialysis: Yes Hx Renal Failure: Yes - ENDOCRINE/METABOLIC Hx Endocrine Disorders: No - HEMATOLOGICAL/ONCOLOGICAL Hx Anemia: Yes - INTEGUMENTARY Hx Dermatological Problems: No - MUSCULOSKELETAL/RHEUMATOLOGICAL Hx Falls: No - GASTROINTESTINAL Hx Gastrointestinal Disorders: No Hx Colitis: Yes - GENITOURINARY/GYNECOLOGICAL Hx Genitourinary Disorders: No - PSYCHIATRIC Hx Depression: Yes Hx Substance Use: No - SURGICAL HISTORY Hx Surgeries: No - ANESTHESIA Hx Anesthesia: Yes Hx Anesthesia Reactions: No Hx Malignant Hyperthermia: No Meds Allergies/Adverse Reactions: Allergies Allergy/AdvReac Type Severity Reaction Status Date / Time No Known Allergies Allergy Verified 07/28/17 15:35 - Medications Medications: Current Medications Albuterol/Ipratropium (Duoneb 3 Mg/0.5 Mg (3 Ml) Ud) 3 ml IH RTID [facility] Last Admin: 09/30/17 14:25 Dose: 3 ml Allopurinol (Zyloprim) 100 mg PO DAILY [facility] Last Admin: 09/30/17 11:18 Dose: 100 mg Amlodipine Besylate (Norvasc) 10 mg PO DAILY [facility] Last Admin: 09/30/17 09:44 Dose: 10 mg Aspirin (Ecotrin) 81 mg PO DAILY [facility] Last Admin: 09/30/17 09:44 Dose: 81 mg Budesonide (Pulmicort Respules) 0.5 mg IH RBID [facility] Last Admin: 09/30/17 07:53 Dose: 0.5 mg Calcium Acetate (Phoslo) 2,001 mg PO TID [facility] Last Admin: 09/30/17 13:10 Dose: 2,001 mg Cinacalcet (Sensipar) 30 mg PO DAILY [facility] Last Admin: 09/30/17 09:44 Dose: 30 mg Clonidine HCl (Catapres) 0.3 mg PO TID [facility] Last Admin: 09/30/17 13:18 Dose: 0.3 mg Enalapril Maleate (Vasotec) 20 mg PO BID [facility] Last Admin: 09/30/17 09:18 Dose: 20 mg Fluticasone Propionate (Flonase) 1 spr JOB DAILY PRN PRN Reason: Allergy symptoms Furosemide (Lasix) 40 mg PO DAILY [facility] Last Admin: 09/30/17 09:43 Dose: 40 mg Home Med (Patient Own Control [Patient Own Control]) 1 cap PO DAILY [facility] Last Admin: 09/30/17 09:40 Dose: 1 cap Home Med (Promethazine Hcl/Codeine [Prometh-Codein 6.25-10 Mg/5 Ml]) 10 ml PO PRN PRN PRN Reason: Cough Hydralazine HCl (Apresoline) 50 mg PO BID [facility] Last Admin: 09/30/17 09:42 Dose: 50 mg Hydromorphone HCl (Dilaudid) 3 mg IVP Q4H PRN PRN Reason: Pain, severe (8-10) Last Admin: 09/30/17 13:21 Dose: 3 mg Metronidazole (Flagyl 500mg/100ml Ns) 100 mls @ 100 mls/hr IVPB Q8 [facility] PRN Reason: Protocol Last Admin: 09/30/17 09:17 Dose: 100 mls/hr Ciprofloxacin (Cipro 200mg/100ml D5w) 100 mls @ 100 mls/hr IVPB Q24H [facility] Last Admin: 09/30/17 14:37 Dose: 100 mls/hr Loratadine (Claritin) 10 mg PO DAILY PRN PRN Reason: Allergy symptoms Last Admin: 09/30/17 09:43 Dose: 10 mg Metoprolol Succinate (Toprol Xl) 100 mg PO DAILY [facility] Last Admin: 09/30/17 14:38 Dose: 100 mg Minoxidil (Minoxidil) 2.5 mg PO BID [facility] Last Admin: 09/30/17 09:42 Dose: 2.5 mg Oxycodone/Acetaminophen (Percocet 5/325 Mg Tab) 1 tab PO Q4 PRN PRN Reason: Pain, moderate (4-7) Stop: 10/03/17 12:19 Physical Exam - Constitutional Appears: Non-toxic, No Acute Distress - Eye Exam Eye Exam: Normal appearance - Respiratory Exam Respiratory Exam: absent: Accessory Muscle Use, Respiratory Distress - Cardiovascular Exam Cardiovascular Exam: REGULAR RHYTHM. absent: Tachycardia - GI/Abdominal Exam GI & Abdominal Exam: Soft, Tenderness (minimal). absent: Distended, Firm, Guarding - Extremities Exam Extremities exam: Negative for: pedal edema - Neurological Exam Neurological exam: Alert, Oriented x3 - Psychiatric Exam Psychiatric exam: Normal Affect, Normal Mood - Skin Skin Exam: Normal Color Results - Vital Signs Recent Vital Signs: Last Vital Signs Temp 97.4 F L 09/30/17 15:40 Pulse 107 H 09/30/17 15:40 Resp 20 09/30/17 15:40 BP 153/103 H 09/30/17 15:40 Pulse Ox 98 09/30/17 15:40 - Labs Result Diagrams: 09/30/17 07:58 09/30/17 07:58 Labs: Laboratory Results - last 24 hr 09/29/17 09/30/17 09/30/17 14:38 07:58 07:58 WBC 9.0 RBC 4.43 Hgb 11.4 L Hct 35.7 MCV 80.5 MCH 25.7 L MCHC 32.0 L RDW 19.7 H Plt Count 221 Neutrophils % (Manual) 81 H Band Neutrophils % 2 Lymphocytes % (Manual) 9 L Reactive Lymphs % 1 H Monocytes % (Manual) 5 Eosinophils % (Manual) 1 Basophils % (Manual) 1 Platelet Estimate Normal Hypochromasia (manual) Slight Poikilocytosis (manual Slight Anisocytosis (manual) Slight Microcytosis (manual) Slight Sodium 139 Potassium 4.5 Chloride 100 Carbon Dioxide 22 Anion Gap 22 H BUN 67 H Creatinine 14.2 H* Est GFR ( Amer) 5 Est GFR (Non-Af Amer) 4 Random Glucose 94 Calcium 8.8 Total Bilirubin 0.4 AST 15 L D ALT 21 D Alkaline Phosphatase 50 Total Protein 6.4 Albumin 3.3 L Globulin 3.0 Albumin/Globulin Ratio 1.1 Triglycerides 66 Cholesterol 95 LDL Cholesterol Direct 41 HDL Cholesterol 26 L Thyroxine (T4) 6.57 TSH 3rd Generation 4.44 Assessment & Plan - Assessment and Plan (Free Text) Assessment: 47M with ESRD on HD via permacath Plan: pt declined AVF placement at this time due to current health status pt counseled on benefits and risks of having AVF vs not having AVF pt agreed to vein mapping tomorrow will follow peripherally and document pts decisions moving forward will d/w Dr Karen Dowell, PGY3 - Date & Time Date: 09/30/17 Time: 16:05
--- NOTE | 2017-09-30 16:35 | CARD ---
APPROVED REPORT EKG Measurement Heart [id number] OR [id number] [id number] <Conclusion> Normal sinus rhythm Left atrial enlargement ST & T wave abnormality, consider lateral ischemia Prolonged QT Abnormal ECG
[2017-09-30 21:18] LABS: HEPATITIS B SURFACE AG NEGATIVE (NEGATIVE)
[2017-09-30 21:35] LABS: HEPATITIS C ANTIBODY Negative (NEGATIVE)
[2017-10-01] MEDS: metroNIDAZOLE 500mg/100ml NS 100 ML IVPB SCH ×3 (01:18→18:34)
[2017-10-01] MEDS: Budesonide 0.5 mg/2 ml Inhal Susp UD IH SCH (07:50)
[2017-10-01] MEDS: Albuterol-Ipratrop 3 mg / 0.5 (3 ml) UD IH SCH ×2 (07:50→14:08)
[2017-10-01] MEDS: [UNRECOGNIZED DRUG - OTHER] PO SCH (08:27)
--- NOTE | 2017-10-01 08:51 | PN ---
DATE: DIALYSIS NOTE SUBJECTIVE: Mr. Sampson seen on hemodialysis now with a blood pressure approximately 160/109, his heart rate about 100. I gave him a stat metoprolol because he did not take his medication metoprolol as of yet. I discussed the order with the dialysis nurse at the bedside. The patient is being dialyzed through subclavian PermCath. PHYSICAL EXAMINATION: CHEST: Clear. HEART: No rubs. ABDOMEN: Soft. EXTREMITIES: No edema. IMPRESSION AND PLAN: End-stage renal disease, receiving dialysis with sodium bath 138, potassium bath 2 mEq, bicarbonate bath 34 and ultrafiltration approximately 2000 mL as tolerated. In addition, given metoprolol as noted above. The patient is scheduled for hemodialysis for tomorrow, so he will be back on Thursday, , Thursday. Hilario Walters MD
--- NOTE | 2017-10-01 08:51 | CON ---
DATE: REQUESTING PHYSICIAN: Dr. Harrell. HISTORY OF PRESENT ILLNESS: This patient is 47 years of age male, known to me with end-stage renal disease, on maintenance hemodialysis, TTS as outpatient. He came to the emergency room complaining of dashing red stool started yesterday afternoon when he did not go for dialysis and he came here to the emergency room for further evaluation. The patient is known with very long history of hypertension. He started on hemodialysis in the recent past about a couple of months ago and I have been trying to get AV fistula for him and he has been canceling appointment after appointment for AV fistula. The patient has been dialyzed through right PermCath. PAST MEDICAL HISTORY: Hypertension. SOCIAL HISTORY: Noncontributory. REVIEW OF SYSTEMS: Review of the all systems as noted okay except what I mentioned above. PHYSICAL EXAMINATION: VITAL SIGNS: Showed blood pressure 161/90. NECK: Supple. CHEST: Showed no significant rales. HEART: No rubs. Regular sinus rhythm. ABDOMEN: Soft. Bowel sounds were active. EXTREMITIES: No pitting edema. LABORATORY DATA: Lab data showed hemoglobin 12.8 and repeat one 11.4; WBC 11.9, came down to 9.0. Creatinine 14.2, potassium 4.5 and the rest of the electrolyte acceptable. BUN 67 and CO2 of 22. His random glucose 94. He has CAT scan of the abdomen and pelvis and the report read as follows; heterogenous appearance of the duodenum at the region of the ampulla, dilated CBD and distended gallbladder with nonspecific thickening or edema. Nonspecific right mid lower lobe 1.5 cm hyperattenuation structure, which may represent hemorrhagic cyst. For details, please see the detail of the CT scan. IMPRESSION AND PLAN: 1. The patient with end-stage renal disease, on maintenance hemodialysis, admitted with rectal bleeding and diarrhea. Etiology to be determined. The patient was seen by Gastroenterology. As far as end-stage, dialysis order was given. Arrangement has been made. 2. Hypertension. The patient continued to receive his antihypertensive medication. The patient is on multiple medications as outpatient including clonidine, hydralazine and metoprolol, which has not been given for some reason. I do not see it on the list, although he is supposed to be on it. I will straighten it out with the gentleman and the patient and his medication list. Nonetheless, continue the current medication. Hilario Walters MD
[2017-10-01] MEDS: Metoprolol Succinate 100 mg XL Tab PO SCH (10:19)
--- NOTE | 2017-10-01 10:39 | CP.PCM.PN ---
Subjective - Date & Time of Evaluation Date of Evaluation: 10/01/17 Time of Evaluation: 10:37 - Subjective Subjective: Palpation bed awake and conscious his eating his breakfast His mother at the bedside No nausea no vomiting No bleeding reported Vital sign noted Objective - Vital Signs/Intake and Output Vital Signs (last 24 hours): Temp Pulse Resp BP Pulse Ox 98.3 F 69 18 162/92 H 98 10/01/17 07:53 10/01/17 10:19 10/01/17 07:53 10/01/17 10:19 10/01/17 07:53 - Medications Medications: Current Medications Albuterol/Ipratropium (Duoneb 3 Mg/0.5 Mg (3 Ml) Ud) 3 ml IH RTID [facility] Last Admin: 10/01/17 07:50 Dose: 3 ml Allopurinol (Zyloprim) 100 mg PO DAILY [facility] Last Admin: 10/01/17 08:25 Dose: 100 mg Amlodipine Besylate (Norvasc) 10 mg PO DAILY [facility] Last Admin: 10/01/17 08:24 Dose: 10 mg Aspirin (Ecotrin) 81 mg PO DAILY [facility] Last Admin: 10/01/17 08:26 Dose: 81 mg Budesonide (Pulmicort Respules) 0.5 mg IH RBID [facility] Last Admin: 10/01/17 07:50 Dose: 0.5 mg Calcium Acetate (Phoslo) 2,001 mg PO TID [facility] Last Admin: 10/01/17 08:20 Dose: 2,001 mg Cinacalcet (Sensipar) 30 mg PO DAILY [facility] Last Admin: 10/01/17 08:25 Dose: 30 mg Clonidine HCl (Catapres) 0.3 mg PO TID [facility] Last Admin: 10/01/17 08:21 Dose: 0.3 mg Enalapril Maleate (Vasotec) 20 mg PO BID [facility] Last Admin: 10/01/17 10:19 Dose: Not Given Fluticasone Propionate (Flonase) 1 spr JOB DAILY PRN PRN Reason: Allergy symptoms Furosemide (Lasix) 40 mg PO DAILY [facility] Last Admin: 10/01/17 10:18 Dose: Not Given Home Med (Patient Own Control [Patient Own Control]) 1 cap PO DAILY [facility] Last Admin: 10/01/17 08:27 Dose: 1 cap Home Med (Promethazine Hcl/Codeine [Prometh-Codein 6.25-10 Mg/5 Ml]) 10 ml PO PRN PRN PRN Reason: Cough Hydralazine HCl (Apresoline) 50 mg PO BID [facility] Last Admin: 10/01/17 08:18 Dose: Not Given Hydromorphone HCl (Dilaudid) 3 mg IVP Q4H PRN PRN Reason: Pain, severe (8-10) Last Admin: 10/01/17 06:35 Dose: 3 mg Metronidazole (Flagyl 500mg/100ml Ns) 100 mls @ 100 mls/hr IVPB Q8 [facility] PRN Reason: Protocol Last Admin: 10/01/17 08:23 Dose: 100 mls/hr Ciprofloxacin (Cipro 200mg/100ml D5w) 100 mls @ 100 mls/hr IVPB Q24H [facility] Last Admin: 09/30/17 14:37 Dose: 100 mls/hr Loratadine (Claritin) 10 mg PO DAILY PRN PRN Reason: Allergy symptoms Last Admin: 09/30/17 09:43 Dose: 10 mg Metoprolol Succinate (Toprol Xl) 100 mg PO DAILY [facility] Last Admin: 10/01/17 10:19 Dose: Not Given Minoxidil (Minoxidil) 2.5 mg PO BID [facility] Last Admin: 10/01/17 10:19 Dose: Not Given Oxycodone/Acetaminophen (Percocet 5/325 Mg Tab) 1 tab PO Q4 PRN PRN Reason: Pain, moderate (4-7) Stop: 10/03/17 12:19 - Labs Labs: 09/30/17 07:58 09/30/17 07:58 - Constitutional Appears: No Acute Distress - ENT Exam ENT Exam: Mucous Membranes Moist - Neck Exam Neck Exam: absent: Lymphadenopathy - Respiratory Exam Respiratory Exam: Chest Wall Tenderness, NORMAL BREATHING PATTERN - Cardiovascular Exam Cardiovascular Exam: REGULAR RHYTHM. absent: Rubs - GI/Abdominal Exam GI & Abdominal Exam: Soft, Normal Bowel Sounds - Extremities Exam Extremities Exam: absent: Calf Tenderness - Back Exam Back Exam: absent: CVA tenderness (L), CVA tenderness (R) - Neurological Exam Neurological Exam: Alert - Psychiatric Exam Psychiatric exam: Normal Affect - Skin Skin Exam: absent: Cyanosis Assessment and Plan (1) ESRD (end stage renal disease) on dialysis Assessment & Plan: End stage renal disease on maintenance hemodialysis. Patient completed hemodialysis yesterday and is scheduled to have dialysis today shortly Patient appears to be comfortable Blood test reviewed Phosphorus and PTH still pending Patient refused completely AV fistula despite his mother convincing him. Patient has secondary hyperparathyroidism Hyperphosphatemia as outpatient Continue hemodialysis Hemoglobin appears to be stable Hypertension better controlled patient on multiple antihypertensive medications. Status: Acute (2) GI bleed Status: Acute
--- NOTE | 2017-10-01 14:26 | CP.PCM.PN ---
Objective - Vital Signs/Intake and Output Vital Signs (last 24 hours): Temp Pulse Resp BP Pulse Ox 97.9 F 70 18 159/96 H 99 10/01/17 12:47 10/01/17 13:33 10/01/17 12:47 10/01/17 13:33 10/01/17 12:47 - Medications Medications: Current Medications Albuterol/Ipratropium (Duoneb 3 Mg/0.5 Mg (3 Ml) Ud) 3 ml IH RTID [facility] Last Admin: 10/01/17 14:08 Dose: 3 ml Allopurinol (Zyloprim) 100 mg PO DAILY [facility] Last Admin: 10/01/17 08:25 Dose: 100 mg Amlodipine Besylate (Norvasc) 10 mg PO DAILY [facility] Last Admin: 10/01/17 08:24 Dose: 10 mg Aspirin (Ecotrin) 81 mg PO DAILY [facility] Last Admin: 10/01/17 08:26 Dose: 81 mg Budesonide (Pulmicort Respules) 0.5 mg IH RBID [facility] Last Admin: 10/01/17 07:50 Dose: 0.5 mg Calcium Acetate (Phoslo) 2,001 mg PO TID [facility] Last Admin: 10/01/17 13:33 Dose: Not Given Cinacalcet (Sensipar) 30 mg PO DAILY [facility] Last Admin: 10/01/17 08:25 Dose: 30 mg Clonidine HCl (Catapres) 0.3 mg PO TID [facility] Last Admin: 10/01/17 13:33 Dose: Not Given Enalapril Maleate (Vasotec) 20 mg PO BID [facility] Last Admin: 10/01/17 10:19 Dose: Not Given Fluticasone Propionate (Flonase) 1 spr JOB DAILY PRN PRN Reason: Allergy symptoms Furosemide (Lasix) 40 mg PO DAILY [facility] Last Admin: 10/01/17 10:18 Dose: Not Given Home Med (Patient Own Control [Patient Own Control]) 1 cap PO DAILY [facility] Last Admin: 10/01/17 08:27 Dose: 1 cap Hydralazine HCl (Apresoline) 50 mg PO BID [facility] Last Admin: 10/01/17 08:18 Dose: Not Given Hydromorphone HCl (Dilaudid) 3 mg IVP Q4H PRN PRN Reason: Pain, severe (8-10) Last Admin: 10/01/17 13:31 Dose: 3 mg Metronidazole (Flagyl 500mg/100ml Ns) 100 mls @ 100 mls/hr IVPB Q8 [facility] PRN Reason: Protocol Last Admin: 10/01/17 08:23 Dose: 100 mls/hr Ciprofloxacin (Cipro 200mg/100ml D5w) 100 mls @ 100 mls/hr IVPB Q24H [facility] Last Admin: 09/30/17 14:37 Dose: 100 mls/hr Loratadine (Claritin) 10 mg PO DAILY PRN PRN Reason: Allergy symptoms Last Admin: 09/30/17 09:43 Dose: 10 mg Metoprolol Succinate (Toprol Xl) 100 mg PO DAILY [facility] Last Admin: 10/01/17 10:19 Dose: Not Given Minoxidil (Minoxidil) 2.5 mg PO BID [facility] Last Admin: 10/01/17 10:19 Dose: Not Given Oxycodone/Acetaminophen (Percocet 5/325 Mg Tab) 1 tab PO Q4 PRN PRN Reason: Pain, moderate (4-7) Stop: 10/03/17 12:19 Promethazine HCl/Codeine (Phenergan/Codeine Oral Syrup) 5 ml PO Q6 PRN PRN Reason: Cough - Labs Labs: 09/30/17 07:58 09/30/17 07:58
--- NOTE | 2017-10-01 15:37 | CP.PCM.PN ---
Subjective - Date & Time of Evaluation Date of Evaluation: 10/01/17 Time of Evaluation: 09:30 - Subjective Subjective: asking for food Objective - Vital Signs/Intake and Output Vital Signs (last 24 hours): Temp Pulse Resp BP Pulse Ox 97.9 F 70 18 159/96 H 99 10/01/17 12:47 10/01/17 13:33 10/01/17 12:47 10/01/17 13:33 10/01/17 12:47 - Medications Medications: Current Medications Albuterol/Ipratropium (Duoneb 3 Mg/0.5 Mg (3 Ml) Ud) 3 ml IH RTID [facility] Last Admin: 10/01/17 14:08 Dose: 3 ml Allopurinol (Zyloprim) 100 mg PO DAILY [facility] Last Admin: 10/01/17 08:25 Dose: 100 mg Amlodipine Besylate (Norvasc) 10 mg PO DAILY [facility] Last Admin: 10/01/17 08:24 Dose: 10 mg Aspirin (Ecotrin) 81 mg PO DAILY [facility] Last Admin: 10/01/17 08:26 Dose: 81 mg Budesonide (Pulmicort Respules) 0.5 mg IH RBID [facility] Last Admin: 10/01/17 07:50 Dose: 0.5 mg Calcium Acetate (Phoslo) 2,001 mg PO TID [facility] Last Admin: 10/01/17 13:33 Dose: Not Given Cinacalcet (Sensipar) 30 mg PO DAILY [facility] Last Admin: 10/01/17 08:25 Dose: 30 mg Clonidine HCl (Catapres) 0.3 mg PO TID [facility] Last Admin: 10/01/17 13:33 Dose: Not Given Enalapril Maleate (Vasotec) 20 mg PO BID [facility] Last Admin: 10/01/17 10:19 Dose: Not Given Fluticasone Propionate (Flonase) 1 spr JOB DAILY PRN PRN Reason: Allergy symptoms Furosemide (Lasix) 40 mg PO DAILY [facility] Last Admin: 10/01/17 10:18 Dose: Not Given Home Med (Patient Own Control [Patient Own Control]) 1 cap PO DAILY [facility] Last Admin: 10/01/17 08:27 Dose: 1 cap Hydralazine HCl (Apresoline) 50 mg PO BID [facility] Last Admin: 10/01/17 08:18 Dose: Not Given Hydromorphone HCl (Dilaudid) 3 mg IVP Q4H PRN PRN Reason: Pain, severe (8-10) Last Admin: 10/01/17 13:31 Dose: 3 mg Metronidazole (Flagyl 500mg/100ml Ns) 100 mls @ 100 mls/hr IVPB Q8 JUAN DAVID PRN Reason: Protocol Last Admin: 10/01/17 08:23 Dose: 100 mls/hr Ciprofloxacin (Cipro 200mg/100ml D5w) 100 mls @ 100 mls/hr IVPB Q24H [facility] Last Admin: 09/30/17 14:37 Dose: 100 mls/hr Loratadine (Claritin) 10 mg PO DAILY PRN PRN Reason: Allergy symptoms Last Admin: 09/30/17 09:43 Dose: 10 mg Metoprolol Succinate (Toprol Xl) 100 mg PO DAILY [facility] Last Admin: 10/01/17 10:19 Dose: Not Given Minoxidil (Minoxidil) 2.5 mg PO BID [facility] Last Admin: 10/01/17 10:19 Dose: Not Given Oxycodone/Acetaminophen (Percocet 5/325 Mg Tab) 1 tab PO Q4 PRN PRN Reason: Pain, moderate (4-7) Stop: 10/03/17 12:19 Promethazine HCl/Codeine (Phenergan/Codeine Oral Syrup) 5 ml PO Q6 PRN PRN Reason: Cough - Labs Labs: 09/30/17 07:58 09/30/17 07:58 - Respiratory Exam Respiratory Exam: NORMAL BREATHING PATTERN - Cardiovascular Exam Cardiovascular Exam: REGULAR RHYTHM - GI/Abdominal Exam GI & Abdominal Exam: Soft, Tenderness, Normal Bowel Sounds Assessment and Plan - Assessment and Plan (Free Text) Assessment: 47 yo male with colitis abx advance diet slowly outpatient colonoscopy
[2017-10-01 15:38] VITALS: RESP 20
--- NOTE | 2017-10-01 16:38 | CP.PCM.PN ---
Objective - Vital Signs/Intake and Output Vital Signs (last 24 hours): Temp Pulse Resp BP Pulse Ox 98.2 F 76 20 160/108 H 98 10/01/17 15:38 10/01/17 16:11 10/01/17 15:38 10/01/17 16:11 10/01/17 15:38 - Medications Medications: Current Medications Albuterol/Ipratropium (Duoneb 3 Mg/0.5 Mg (3 Ml) Ud) 3 ml IH RTID [facility] Last Admin: 10/01/17 14:08 Dose: 3 ml Allopurinol (Zyloprim) 100 mg PO DAILY [facility] Last Admin: 10/01/17 08:25 Dose: 100 mg Amlodipine Besylate (Norvasc) 10 mg PO DAILY [facility] Last Admin: 10/01/17 08:24 Dose: 10 mg Aspirin (Ecotrin) 81 mg PO DAILY [facility] Last Admin: 10/01/17 08:26 Dose: 81 mg Budesonide (Pulmicort Respules) 0.5 mg IH RBID [facility] Last Admin: 10/01/17 07:50 Dose: 0.5 mg Calcium Acetate (Phoslo) 2,001 mg PO TID [facility] Last Admin: 10/01/17 13:33 Dose: Not Given Cinacalcet (Sensipar) 30 mg PO DAILY [facility] Last Admin: 10/01/17 08:25 Dose: 30 mg Clonidine HCl (Catapres) 0.3 mg PO TID [facility] Last Admin: 10/01/17 16:11 Dose: 0.3 mg Enalapril Maleate (Vasotec) 20 mg PO BID [facility] Last Admin: 10/01/17 10:19 Dose: Not Given Fluticasone Propionate (Flonase) 1 spr JOB DAILY PRN PRN Reason: Allergy symptoms Furosemide (Lasix) 40 mg PO DAILY [facility] Last Admin: 10/01/17 10:18 Dose: Not Given Home Med (Patient Own Control [Patient Own Control]) 1 cap PO DAILY [facility] Last Admin: 10/01/17 08:27 Dose: 1 cap Hydralazine HCl (Apresoline) 50 mg PO BID [facility] Last Admin: 10/01/17 16:10 Dose: 50 mg Hydromorphone HCl (Dilaudid) 3 mg IVP Q4H PRN PRN Reason: Pain, severe (8-10) Last Admin: 10/01/17 13:31 Dose: 3 mg Metronidazole (Flagyl 500mg/100ml Ns) 100 mls @ 100 mls/hr IVPB Q8 [facility] PRN Reason: Protocol Last Admin: 10/01/17 08:23 Dose: 100 mls/hr Ciprofloxacin (Cipro 200mg/100ml D5w) 100 mls @ 100 mls/hr IVPB Q24H [facility] Last Admin: 09/30/17 14:37 Dose: 100 mls/hr Loratadine (Claritin) 10 mg PO DAILY PRN PRN Reason: Allergy symptoms Last Admin: 09/30/17 09:43 Dose: 10 mg Metoprolol Succinate (Toprol Xl) 100 mg PO DAILY [facility] Last Admin: 10/01/17 10:19 Dose: Not Given Minoxidil (Minoxidil) 2.5 mg PO BID [facility] Last Admin: 10/01/17 16:09 Dose: 2.5 mg Oxycodone/Acetaminophen (Percocet 5/325 Mg Tab) 1 tab PO Q4 PRN PRN Reason: Pain, moderate (4-7) Stop: 10/03/17 12:19 Promethazine HCl/Codeine (Phenergan/Codeine Oral Syrup) 5 ml PO Q6 PRN PRN Reason: Cough - Labs Labs: 09/30/17 07:58 09/30/17 07:58
[2017-10-01] MEDS: Ciprofloxacin 200mg/100ml D5W 100 ML IVPB SCH (18:34)
--- NOTE | 2017-10-01 19:41 | CP.PCM.DIS ---
Provider - Provider Date of Admission: 09/29/17 15:34 Attending physician: Rommel Harrell MD Consults: Vascular Surgery. Time Spent in preparation of Discharge (in minutes): 35 Diagnosis - Discharge Diagnosis (1) Colitis Status: Acute Priority: High (2) Abdominal pain Status: Acute Priority: High (3) ESRD (end stage renal disease) on dialysis Status: Chronic Priority: High (4) HTN (hypertension) Status: Chronic Priority: High (5) Back pain Status: Chronic Priority: High (6) History of asthma Status: Chronic Hospital Course - Lab Results Lab Results: Micro Results 09/29/17 16:00 Blood Blood Culture - Preliminary NO GROWTH AFTER 48 HOURS Most Recent Lab Values WBC 9.0 K/uL (4.8-10.8) 09/30/17 07:58 RBC 4.43 Mil/uL (4.40-5.90) 09/30/17 07:58 Hgb 11.4 g/dL (12.0-18.0) L 09/30/17 07:58 Hct 35.7 % (35.0-51.0) 09/30/17 07:58 MCV 80.5 fl (80.0-94.0) 09/30/17 07:58 MCH 25.7 pg (27.0-31.0) L 09/30/17 07:58 MCHC 32.0 g/dL (33.0-37.0) L 09/30/17 07:58 RDW 19.7 % (11.5-14.5) H 09/30/17 07:58 Plt Count 221 K/uL (130-400) 09/30/17 07:58 MPV 10.1 fl (7.2-11.7) 09/29/17 14:38 Neut % (Auto) 84.8 % (50.0-75.0) H 09/29/17 14:38 Lymph % (Auto) 9.4 % (20.0-40.0) L 09/29/17 14:38 [place] % (Auto) 3.4 % (0.0-10.0) 09/29/17 14:38 Eos % (Auto) 1.0 % (0.0-4.0) 09/29/17 14:38 Baso % (Auto) 1.4 % (0.0-2.0) 09/29/17 14:38 Neut # 10.1 K/uL (1.8-7.0) H 09/29/17 14:38 Lymph # 1.1 K/uL (1.0-4.3) 09/29/17 14:38 [place] # 0.4 K/uL (0.0-0.8) 09/29/17 14:38 Eos # 0.1 K/uL (0.0-0.7) 09/29/17 14:38 Baso # 0.2 K/uL (0.0-0.2) 09/29/17 14:38 Neutrophils % (Manual) 81 % (42-75) H 09/29/17 14:38 Band Neutrophils % 2 % (0-2) 09/29/17 14:38 Lymphocytes % (Manual) 9 % (20-50) L 09/29/17 14:38 Reactive Lymphs % 1 % (0-0) H 09/29/17 14:38 Monocytes % (Manual) 5 % (0-10) 09/29/17 14:38 Eosinophils % (Manual) 1 % (0-7) 09/29/17 14:38 Basophils % (Manual) 1 % (0-2) 09/29/17 14:38 Platelet Estimate Normal (NORMAL) 09/29/17 14:38 Hypochromasia (manual) Slight 09/29/17 14:38 Poikilocytosis (manual Slight 09/29/17 14:38 Anisocytosis (manual) Slight 09/29/17 14:38 Microcytosis (manual) Slight 09/29/17 14:38 Sodium 139 mmol/l (132-148) 09/30/17 07:58 Potassium 4.5 MMOL/L (3.6-5.0) 09/30/17 07:58 Chloride 100 mmol/L (98-107) 09/30/17 07:58 Carbon Dioxide 22 mmol/L (22-30) 09/30/17 07:58 Anion Gap 22 (10-20) H 09/30/17 07:58 BUN 67 mg/dl (9-20) H 09/30/17 07:58 Creatinine 14.2 mg/dl (0.8-1.5) H* 09/30/17 07:58 Est GFR ( Amer) 5 09/30/17 07:58 Est GFR (Non-Af Amer) 4 09/30/17 07:58 Random Glucose 94 mg/dL (75-110) 09/30/17 07:58 Calcium 8.8 mg/dL (8.4-10.2) 09/30/17 07:58 Total Bilirubin 0.4 mg/dl (0.2-1.3) 09/30/17 07:58 AST 15 U/L (17-59) L D 09/30/17 07:58 ALT 21 U/L (21-72) D 09/30/17 07:58 Alkaline Phosphatase 50 U/L (38-126) 09/30/17 07:58 Total Protein 6.4 G/DL (6.3-8.2) 09/30/17 07:58 Albumin 3.3 g/dL (3.5-5.0) L 09/30/17 07:58 Globulin 3.0 gm/dL (2.2-3.9) 09/30/17 07:58 Albumin/Globulin Ratio 1.1 (1.0-2.1) 09/30/17 07:58 Triglycerides 66 mg/DL (0-149) 09/30/17 07:58 Cholesterol 95 mg/dL (0-199) 09/30/17 07:58 LDL Cholesterol Direct 41 mg/dL (0-129) 09/30/17 07:58 HDL Cholesterol 26 MG/DL (30-70) L 09/30/17 07:58 Thyroxine (T4) 6.57 ug/dl (5.5-11.0) 09/30/17 07:58 TSH 3rd Generation 4.44 mIU/ML (0.46-4.68) 09/30/17 07:58 Hep Bs Antigen Negative (NEGATIVE) 09/30/17 14:21 Hep Bs Antibody Negative (NEGATIVE) 09/30/17 14:21 Hepatitis C Antibody Negative (NEGATIVE) 09/30/17 14:21 - Hospital Course Hospital Course: 47 yrs old male AD with 5 days diarrhea watery with bright red blood and abdominal pain CT Abd-Pelvis DOA Colitis, PMHx HTN , HCL, Asthtma, ESKD - HHD , Anemia, Blood transfusions , Lumbago , Depression. SHx Perma Cath. Patient with Abdomen BS normal, Soft, tenderness. Renal consult continue HD , Vascular consult Venous mapping , GI clothing consultant Colitis, continue ATB, advance diet slowly , out patient Colonoscopy. DD 10-01-16 no abdominal pain tolerating well diet , no abdominal pain. - Date & Time of H&P Date of H&P: 09/30/17 Time of H&P: 11:40 Discharge Exam - Head Exam Head Exam: NORMAL INSPECTION - Eye Exam Eye Exam: PERRL - ENT Exam ENT Exam: Normal Exam - Neck Exam Neck exam: Normal Inspection - Respiratory Exam Respiratory Exam: NORMAL BREATHING PATTERN - Cardiovascular Exam Cardiovascular Exam: REGULAR RHYTHM - GI/Abdominal Exam GI & Abdominal Exam: Normal Bowel Sounds, Soft, Tenderness - Back Exam Back exam: NORMAL INSPECTION - Neurological Exam Neurological exam: Alert, Oriented x3 Additional comments: No motor sensory deficit. - Psychiatric Exam Psychiatric exam: Normal Mood - Skin Skin Exam: Warm Discharge Plan - Discharge Medications Prescriptions: Ciprofloxacin HCl [Cipro] 250 mg PO DAILY #8 tablet Metronidazole [Flagyl] 500 mg PO Q8 #24 tablet Metoprolol Succinate [Toprol XL] 100 mg PO DAILY #30 tab - Follow Up Plan Condition: FAIR Disposition: HOME/ ROUTINE Patient education suggested?: Yes Instructions: Gastrointestinal Bleeding (DC), Renal Failure Diet (DC) Additional Instructions: Activity as tolerated, Renal diet. Right subclavian dressing keep dry and intact. Follow-up w/ Dr Walters and Misty Coombs [place] to call for appointment. Referrals: Hilario Walters MD [Staff Provider] - Rommel Harrell MD [Staff Provider] -
--- NOTE | 2017-10-01 21:15 | CON ---
DATE: 09/30/2017 REFERRING PHYSICIAN: Rommel Harrell MD. REASON FOR CONSULTATION: Diarrhea and abdominal pain. HISTORY OF PRESENT ILLNESS: This is a pleasant 47-year-old man with a history of end-stage renal disease, on dialysis, who essentially had bilateral abdominal pain and discomfort for the past week or so, had some diarrhea and some subjective fevers and chills. All of these have gotten better, the diarrhea is persistent, but the pain has improved. Currently, lying in the bed comfortably, in no apparent distress. PAST MEDICAL HISTORY: As above. PAST SURGICAL HISTORY: As above. MEDICATIONS: Have been reviewed. REVIEW OF SYSTEMS: All other systems have been reviewed and are negative apart from the HPI. PHYSICAL EXAMINATION: GENERAL: This is a pleasant middle-aged male, lying comfortably in bed, in no apparent distress. VITAL SIGNS: Here in the hospital, grossly unremarkable. HEENT: Head, normocephalic and atraumatic. Eyes: Pupils are equal, round, and reactive to light bilaterally. No conjunctival pallor or icterus. NECK: Supple. Normal range of motion. No lymphadenopathy appreciated. LUNGS: Coarse breath sounds bilaterally. HEART: S1 and S2, regular rate and rhythm. No murmurs appreciated. ABDOMEN: Soft, nontender. Some discomfort in the epigastric and lower regions. No rebound, no guarding. RECTAL: Deferred. EXTREMITIES: Pulses present bilaterally. SKIN: Warm, dry, and intact. NEUROLOGIC: A and O x3. LABORATORY DATA: All labs have been reviewed. CAT scan shows severe colitis, dilated CBD and status laparoscopic cholecystectomy. Labs include WBC 9.0, hemoglobin 11.4 and stable. Creatinine is 14.2. ASSESSMENT AND PLAN: This is a 47-year-old male with colitis. Recommend antibiotics empirically given. Diet as tolerated. We will need a colonoscopy as an outpatient weeks. Thank you for the consult. Ankur Segundo MD/ PhD cc: Rommel Harrell MD
[2017-10-01 22:47] VITALS: BP 165/108; PULSE 89; TEMP 98; O2SAT 99
== END 2017-10-01 19:15 | disposition home or self-care (01) | DRG 813 ==
LOC: H.ER 11:26 → H.ERHOLD 15:34 → H.TEL 18:34
PROVIDERS: ADMIT Internal Medicine Pulmonary Disease; ATTEND Internal Medicine Pulmonary Disease
PROC: 5A1D70Z Performance of Urinary Filtration, Intermittent, Less than 6 Hours Per Day (ICD-10-PCS; principal; 2017-09-30)
PROC: 5A1D70Z Performance of Urinary Filtration, Intermittent, Less than 6 Hours Per Day (ICD-10-PCS; 2017-10-01)
DX: K52.9 Noninfective gastroenteritis and colitis, unspecified (principal); N18.6 End stage renal disease; E11.22 Type 2 diabetes mellitus with diabetic chronic kidney disease; I12.0 Hypertensive chronic kidney disease with stage 5 chronic kidney disease or end stage renal disease; K59.00 Constipation, unspecified; Z87.891 Personal history of nicotine dependence; Z99.2 Dependence on renal dialysis; D64.9 Anemia, unspecified; F32.9 Major depressive disorder, single episode, unspecified; E78.00 Pure hypercholesterolemia, unspecified; J45.909 Unspecified asthma, uncomplicated; M54.5 Low back pain

== ENCOUNTER 2017-12-06 11:13 | Inpatient (IN) | payer MEDICAID ==
[2017-12-06 11:19] VITALS: BMI 23.3
[2017-12-06] MEDS ORDERED: Sodium Chloride 0.9% 500 ML IV STA (11:37)
[2017-12-06] MEDS ORDERED: HYDROmorphone 0.5 mg/0.5 ml ISec IVP STA ×3 (11:37→14:42)
[2017-12-06] MEDS ORDERED: Iohexol 240 (50 ml) PO ONE (11:37)
--- NOTE | 2017-12-06 11:40 | ED PDOC ---
HPI: Abdomen Time Seen by Provider: 12/06/17 11:31 Chief Complaint (Nursing): Abdominal Pain Chief Complaint (Provider): Abd pain History Per: Patient History/Exam Limitations: no limitations Onset/Duration Of Symptoms: Days (yesterday) Additional Complaint(s): Abd pain diffuse. Similar in the past. Not sure what he was diagnosed with then. Dilaudid helps. No weakness, dizziness, headaches. No chest pain, dyspnea. Gets dialysis T, Th, Sat. Had it yesterday. Ran out of his bp meds. Past Medical History Vital Signs: Last Vital Signs Temp 98 F 12/06/17 11:25 Pulse 98 H 12/06/17 13:08 Resp 18 12/06/17 13:08 BP 180/117 H 12/06/17 13:08 Pulse Ox 100 12/06/17 14:31 - Medical History PMH: Anemia, Arthritis (bones), Asthma, Depression, HTN, Hypercholesterolemia, Chronic Kidney Disease - Family History Family History: States: Diabetes, Hypertension - Immunization History Hx Tetanus Toxoid Vaccination: Yes Hx Influenza Vaccination: No Hx Pneumococcal Vaccination: No - Home Medications Home Medications: Ambulatory Orders Medication Instructions Recorded Albuterol/Ipratropium [Duoneb 3 3 ml IH Q8H PRN 07/28/17 mg/0.5 mg (3 ml) UD] Allopurinol [Zyloprim] 100 mg PO DAILY 07/28/17 Aspirin [Ecotrin] 81 mg PO DAILY 07/28/17 Enalapril Maleate [Vasotec] 20 mg PO BID 07/28/17 Fluticasone Nasal [Flonase] 1 spray JOB DAILY PRN 07/28/17 Fluticasone/Salmeterol 500/50 1 puff IH Q12H 07/28/17 [Advair Diskus 500/50] Furosemide [Lasix] 40 mg PO DAILY 07/28/17 Levalbuterol Tartrate [Xopenex Hfa] 1 puff IH Q4H 07/28/17 Levocetirizine Dihydrochloride 5 mg PO DAILY PRN 07/28/17 [Xyzal] Minoxidil 2.5 mg PO BID 07/28/17 Oxycodone HCl/Acetaminophen 1 tab PO Q4H PRN MDD prn 07/28/17 [Percocet 10-325 mg Tablet] Promethazine HCl/Codeine 10 ml PO PRN PRN 07/28/17 [Prometh-Codein 6.25-10 mg/5 ml] cloNIDine [Catapres] 0.3 mg PO TID 07/28/17 hydrALAZINE [Apresoline] 50 mg PO BID 07/28/17 Calcium Acetate [Phoslo] 2,001 mg PO TID #90 tab 08/05/17 Cinacalcet [Sensipar] 30 mg PO DAILY 09/29/17 Metoprolol Succinate [Toprol XL] 100 mg PO DAILY #30 tab 10/01/17 - Allergies Allergies/Adverse Reactions: Allergies Allergy/AdvReac Type Severity Reaction Status Date / Time No Known Allergies Allergy Verified 12/06/17 11:25 Review of Systems ROS Statement: Except As Marked, All Systems Reviewed And Found Negative Gastrointestinal: Positive for: Nausea, Vomiting, Abdominal Pain Physical Exam - Reviewed Nursing Documentation Reviewed: Yes Vital Signs Reviewed: Yes - Physical Exam Appears: Positive for: Uncomfortable Head Exam: Positive for: ATRAUMATIC, NORMAL INSPECTION, NORMOCEPHALIC Skin: Positive for: Normal Color, Warm, DRY Eye Exam: Positive for: EOMI, Normal appearance, PERRL ENT: Positive for: Normal ENT Inspection Neck: Positive for: Normal, Painless ROM Cardiovascular/Chest: Positive for: Regular Rate, Rhythm Respiratory: Positive for: CNT, Normal Breath Sounds Gastrointestinal/Abdominal: Positive for: Bowel Sounds, Soft, Tenderness (mild diffuse) Back: Positive for: Normal Inspection Extremity: Positive for: Normal ROM Neurologic/Psych: Positive for: Alert, Oriented - Laboratory Results Result Diagrams: 12/06/17 11:50 12/06/17 11:50 Interpretation Of Abn Labs: 13.9, 5.1 k - ECG ECG: Positive for: Interpreted By Me, Viewed By Me ECG Rhythm: Positive for: Normal QRS, Normal ST Segment, Sinus Rhythm O2 Sat by Pulse Oximetry: 100 Pulse Ox Interpretation: Normal - Progress ED Course And Treament: 1404: Pt. refusing to drink contrast. Will do non contrast ct. 1429: Stable. Will need admit for possible further dialysis and pain control. Dr. Harrell knows pt. well. Will admit tele. K 5.1, borderline. Continue monitoring. Dr. Walters paged. 1500: Pt. with enlarged kidney compared to prior. Will need monitoring. Spoke with Dr. Gonzáles who saw pt. and does not recommend any transfer at this time. Pt. to be admitted. 1515: Spoke with Dr. Cross who is covering for Dr. Walters. Will consult. No additional tx at this time. Spoke with Dr. Hernandez who will consult. - Critical Care Total Time (In Min): 60 Documented Critical Care: Time excludes all time spent performint seperately billable procedures Disposition - Clinical Impression Clinical Impression: Abdominal pain, Hyperkalemia, Enlarged kidney, Renal failure, Concern about STD in male without diagnosis, Uncontrolled hypertension - Patient ED Disposition Is Patient to be Admitted: Yes Counseled Patient/Family Regarding: Studies Performed, Diagnosis - Disposition Disposition Time: 14:47 Condition: FAIR - Pt Status Changed To: Hospital Disposition Of: Inpatient - Admit Certification Admit to Inpatient:: After my assessment, the patient will require hospitalization for at least two midnights. This is because of the severity of symptoms shown, intensity of services needed, and/or the medical risk in this patient being treated as an outpatient. - POA Present On Arrival: None
[2017-12-06] MEDS ORDERED: Iohexol 240 (50 ml) ONE (11:53)
[2017-12-06 12:06] LABS: BASO # 0.1 K/uL (0.0-0.2); BASO % 0.6 % (0.0-2.0); HEMOGLOBIN 9.4 g/dL (12.0-18.0); LYMPH # 0.5 K/uL (1.0-4.3); LYMPH % 3.9 % (20.0-40.0); MEAN CELL VOLUME 82.1 fl (80.0-94.0); MEAN CORPUSCULAR HEMOGLOBIN 26.6 pg (27.0-31.0); MEAN CORPUSCULAR HGB CONC 32.4 g/dL (33.0-37.0); MEAN PLATELET VOLUME 10.1 fl (7.2-11.7); MONO # 0.2 K/uL (0.0-0.8); MONO % 1.5 % (0.0-10.0); NEUT # 13.1 K/uL (1.8-7.0); PLATELET COUNT 257 K/uL (130-400); RBC 3.53 Mil/uL (4.40-5.90); RED CELL DISTRIBUTION WIDTH 20.2 % (11.5-14.5); WHITE BLOOD COUNT 13.9 K/uL (4.8-10.8)
[2017-12-06 12:28] LABS: ALB/GLOB RATIO 1.3 (1.0-2.1); ALBUMIN 4.7 g/dL (3.5-5.0); TROPONIN I 0.024 ng/mL (0.00-0.120)
[2017-12-06 12:59] LABS: PLATELET ESTIMATE NORMAL (NORMAL)
[2017-12-06 14:00] LABS: LYMPHOCYTE 5 % (20-50); MONOCYTE 1 % (0-10); NEUTROPHIL 94 % (42-75); TOTAL CELLS COUNTED 100
[2017-12-06 14:01] LABS: ANISOCYTOSIS SLIGHT; HYPOCHROMIC SLIGHT; OVALOCYTES SLIGHT; POIKILOCYTOSIS SLIGHT; TARGET CELLS SLIGHT
[2017-12-06 14:02] LABS: STOMATOCYTES SLIGHT; TEARDROP CELLS SLIGHT
[2017-12-06 14:26] LABS: INR 1.1 (0.9-1.2); PROTHROMBIN TIME 11.8 Seconds (9.8-13.1)
[2017-12-06] MEDS ORDERED: Albuterol 0.083% Inhal Sol (2.5 mg/3 mL) UD INH STA (14:46)
[2017-12-06] MEDS ORDERED: Albuterol 0.083% Inhal Sol (2.5 mg/3 mL) UD ONE (14:52)
--- NOTE | 2017-12-06 15:07 | CT ---
PROCEDURE: CT scan abdomen pelvis dated 12/06/2017 HISTORY: R/O stone COMPARISON: None. Comparison made with CT scan of the abdomen pelvis 09/29/2017. TECHNIQUE: Contiguous helical/transaxial sections of the abdomen pelvis performed without oral or intravenous contrast material. Additional 2 dimensional sagittal and coronal reformats provided. Radiation dose: Total exam DLP = This CT exam was performed using one or more of the following dose reduction techniques: Automated exposure control, adjustment of the mA and/or kV according to patient size, and/or use of iterative reconstruction technique. FINDINGS: LOWER THORAX: Heart appears mildly enlarged. No significant pericardial effusion. Mild passive/dependent type atelectasis both posterior lower lung zones. The no basilar effusion or pneumothorax. There is a small hiatal hernia. PE LIVER: Liver exhibits normal size. No obvious hepatic mass or collection seen on the this noncontrast study. No gross lesion or ductal dilatation. GALLBLADDER AND BILE DUCTS: Gallbladder is moderately distended. No evidence of intraluminal gallbladder calculi. PANCREAS: Pancreas appears grossly unremarkable SPLEEN: Spleen appears intact however there is a perisplenic ascites which appears to be related to changes in the left kidney mentioned above. ADRENALS: Adrenal gland right adrenal unremarkable. Left adrenal gland is poorly seen due to a large amount of perinephric fluid and infiltration. KIDNEYS AND URETERS: There is marked enlargement of the left kidney (measuring nearly 15 cm in CC dimension whereas the right kidney measures approximately 7 cm) which exhibits significant heterogeneous attenuation and a large amount of perinephric fluid/infiltration. Findings are of uncertain etiology though differential diagnosis would ruptured calyx with secondary extravasation of urine or possibly renal infection. Concomitant renal to be considered as well. The possibility of concomitant infarct changes cannot be excluded. Note these changes extend inferiorly along the left psoas musculature There is an approximately 5.3 mm calcification in the left aspect of the pelvis best seen on axial image number [id number] that could represent a left ureteral calculus. . Clinical correlation recommended right kidney appears unremarkable. . These changes extend BLADDER: Urinary bladder is incompletely distended which may account for slight thick-walled appearance. REPRODUCTIVE: Prostate gland measures approximately 3.2 cm in transverse dimension. APPENDIX: Appendix is not seen with complete certainty on this study. BOWEL: Evaluation of the bowel is limited due to the lack of oral contrast material. Previously noted marked abnormal wall thickening of the distal descending and proximal sigmoid colon is difficult to assess due to the left enlarged left kidney and surrounding perinephric fluid/ infiltration however the left colonic wall does not appear significantly thickened edematous. . Diverticulosis I is less well seen on compared the prior study. No evidence of acute mechanical small bowel obstruction however multiple on nondistended fluid-filled loops of small bowel present suggesting mild ileus. PERITONEUM: No gross free intraperitoneal air. There is a small right inguinal hernia that contains what appears represent a fat and a small amount of fluid LYMPH NODES: Unremarkable. No enlarged lymph nodes. VASCULATURE: Unremarkable. No aortic aneurysm. BONES: No fracture or destructive lesion. OTHER FINDINGS: None. IMPRESSION: Marked enlargement of the heterogeneous appearing left kidney which exhibits significant heterogeneous attenuation changes. There is a very large amount of perinephric infiltration and fluid. Changes extending inferiorly along the psoas muscle into the upper pelvis region. . There is also an approximately 5.3 mm calcification seen in the left pelvis which is the exact location of which is uncertain but could be within the distal left ureter. Collectively the findings could represent a hydronephrosis with ruptured calyx and secondary infection or possibly renal hemorrhage. The at distal left ureter cannot be visualized due to the aforementioned perinephric infiltration and fluid that extends inferiorly. Note that the possibility of concomitant infarcts left kidney not excluded. Note these findings were discussed with Dr. Melton at approximately 3 p.m. with written down and read back verification. Apparent improvement previously noted wall thickening and wall edema distal descending proximal sigmoid colon. Diverticulosis. Right inguinal hernia containing mesenteric fat and fluid.
[2017-12-06] MEDS ORDERED: Labetalol 5 mg/ml Inj 20ML IVP STA (15:16)
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
[2017-12-06] MEDS ORDERED: Albuterol-Ipratrop 3 mg / 0.5 (3 ml) UD INH PRN (19:36)
[2017-12-06] MEDS ORDERED: Oxycodone/Acetaminophen 5/325 mg Tab PO PRN (19:51)
[2017-12-07 05:55] LABS: BASO % 0.4 % (0.0-2.0); EOS % 0.1 % (0.0-4.0); LYMPH # 0.8 K/uL (1.0-4.3); LYMPH % 8.2 % (20.0-40.0); MEAN CORPUSCULAR HEMOGLOBIN 27.7 pg (27.0-31.0); MEAN CORPUSCULAR HGB CONC 33.8 g/dL (33.0-37.0); MEAN PLATELET VOLUME 10.3 fl (7.2-11.7); MONO # 0.5 K/uL (0.0-0.8); NEUT # 8.7 K/uL (1.8-7.0); NEUT % 86.3 % (50.0-75.0); NRBC % 0.5 % (0.0-0.0); RBC 2.13 Mil/uL (4.40-5.90); RED CELL DISTRIBUTION WIDTH 19.7 % (11.5-14.5); WHITE BLOOD COUNT 10.1 K/uL (4.8-10.8)
[2017-12-07 06:19] LABS: T4 7.67 ug/dl (5.5-11.0)
[2017-12-07 06:21] LABS: HEMOGLOBIN 5.9 g/dL (12.0-18.0)
[2017-12-07 06:54] LABS: CALCIUM 8.8 mg/dL (8.4-10.2)
[2017-12-07 06:55] LABS: ALB/GLOB RATIO 1.3 (1.0-2.1); ALBUMIN 3.7 g/dL (3.5-5.0)
[2017-12-07 07:55] LABS: IRON 22 ug/dL (49-181)
[2017-12-07 08:04] LABS: % IRON SATURATION 11 % (20-55); TOTAL IRON BINDING CAPACITY 205 ug/dL (250-450)
[2017-12-07 09:07] LABS: MEAN CORPUSCULAR HEMOGLOBIN 27.5 pg (27.0-31.0); MEAN CORPUSCULAR HGB CONC 33.5 g/dL (33.0-37.0); RBC 2.16 Mil/uL (4.40-5.90); RED CELL DISTRIBUTION WIDTH 20.3 % (11.5-14.5); WHITE BLOOD COUNT 10.2 K/uL (4.8-10.8)
[2017-12-07] MEDS: Multivitamin Vitamin B Complex (Nephro-Vite) Tab PO SCH (09:27)
[2017-12-07] MEDS: Metoprolol Succinate 100 mg XL Tab PO SCH (09:30)
--- NOTE | 2017-12-07 10:32 | CARD ---
APPROVED REPORT EKG Measurement Heart [id number] <Conclusion> Normal sinus rhythm Biatrial enlargement Nonspecific ST and T wave abnormality Prolonged QT Abnormal ECG
[2017-12-07 12:34] LABS: HEMOGLOBIN 5.9 g/dL (12.0-18.0)
[2017-12-07] MEDS ORDERED: Morphine 4 MG/ML VIAL IVP PRN (12:40)
[2017-12-07] MEDS: Morphine 4 MG/ML VIAL IVP PRN ×3 (12:46→20:57)
--- NOTE | 2017-12-07 14:50 | CP.PCM.PN ---
Subjective - Date & Time of Evaluation Date of Evaluation: 12/07/17 Time of Evaluation: 14:49 - Subjective Subjective: Nephrology Consultation: Assessment: critical Uncontrolled severe HTN with Urgency Left kidney enlargement ? ruptured kidney cyst with hemorrhage with anemia of acute blood loss Hypertensive Chronic Kidney Disease (I12.0) End stage renal disease (N18.6) dependence on hemodialysis (Z99.2) (TTS) via [facility] Anemia (D64.9), Hyperphosphatemia (E83.39), Secondary Hyperparathyroidism (E21.1 ), HTN (I12.0) Plan: plan for dialysis today. Will plan for dialysis tomorrow as TTS schedule. Continue with Nephrovite 1 tab/day. PRBC as needed for anemia. plan LYLE once BP controlled better. 2 UNIT PRBC rdered 12/07/17 Continue with phos binders home dose, check phos level BP control with meds as ordered. Patient on RAAS ellen as enalapril. secondary HTN work up with renin/franco/metanephrine neg in past Glycemic control, Dialysis consistent diet Further work up/management as per primary team Dose meds/antibiotics (if needed) for ESRD status. Avoid fleets enema/magnesium based laxatives. evaluating for left renal enlargement. consider IR consult as well Monitor Hb closely. Thanks for allowing me to participate in care of your patient. Will follow patient with you. Please call if any Qs d/w team Dr Tom Rodriguez Office: [phone] Chief Complaint;pain abdomen HPI: Pt is a 47 M with hx of ESRD on hemodialysis (TTS) via [facility] @ [facility] since jul 2017, last dialysis yesterday, chronic anemia, hyperphosphatemia, secondary hyperparathyroidism, long standing hx of uncontrolled hypertension, left renal cyst presented with complaints of uncontrolled pain abdomen in flanks both side and pt was restless with it. he is requesting extra HD as he feels extra fluid in body also with high BP ROS: Cardiovascular: No chest pain. Pulmonary: No shortness of breath Gastrointestinal: c/o abdominal pain no nausea. no vomiting. Genitourinary: No pain while urinating. Denies blood in urine. All other negative Physical Examination: General Appearance: uncomfortable, in no acute respiratory distress, co- operative . Vitals reviewed and noted as below Head; Atraumatic, normocephalic ENT: no ulcers no thrush. Tongue is midline. Oropharynx: no rash or ulcers. EYES: Pupils are equal, round and reactive to light accommodation. Eye muscles and extraocular movement intact. Sclera is anicteric. Neck; supple no lymphadenopathy, no thyromegaly or bruit Lungs: Normal respiratory rate/effort. Breath sounds bilateral equal and clear Heart: Normal rate. s1s2 normal. No rub or gallop. Extremities: no edema. No varicose veins Neurological: Patient is alert, awake and oriented to person, place and time. No focal deficit. Strength bilateral appropriate and equal Skin: Warm and dry. Normal turgor. No rash. Palpitation: Normal elasticity for age Abdomen: Abdomen is soft. Bowel sounds +. There is left flank abdominal tenderness, no guarding/rigidity or organomegaly Psych: normal insight and normal affect/mood MSK: no joint tenderness or swelling. Digits and nails normal, no deformity : kidney or bladder not palpable Access: permacath Labs/imaging reviewed. Past medical history, past surgical history, family history, social history, allergy reviewed and noted as below Family Hx: no hx of CKD. Non contributory work up in past: renin 19 aldosterone 7, 24 hr urine for metanephrines WNL CT abdomen: left renal multiple cysts Objective - Vital Signs/Intake and Output Vital Signs (last 24 hours): Temp Pulse Resp BP Pulse Ox 98.8 F 85 18 173/89 H 99 12/07/17 12:36 12/07/17 12:42 12/07/17 12:36 12/07/17 12:42 12/07/17 12:36 - Medications Medications: Current Medications Albuterol/Ipratropium (Duoneb 3 Mg/0.5 Mg (3 Ml) Ud) 3 ml INH RTID PRN PRN Reason: Shortness of Breath Allopurinol (Zyloprim) 100 mg PO DAILY [facility] Last Admin: 12/07/17 09:26 Dose: 100 mg Calcium Acetate (Phoslo) 2,001 mg PO WM [facility] Last Admin: 12/07/17 12:44 Dose: 2,001 mg Cinacalcet (Sensipar) 30 mg PO DAILY [facility] Last Admin: 12/07/17 09:26 Dose: 30 mg Clonidine HCl (Catapres) 0.3 mg PO TID [facility] Last Admin: 12/07/17 12:42 Dose: 0.3 mg Enalapril Maleate (Vasotec) 20 mg PO BID [facility] Last Admin: 12/07/17 09:30 Dose: 20 mg Furosemide (Lasix) 40 mg PO DAILY [facility] Last Admin: 12/07/17 09:29 Dose: 40 mg Metoprolol Succinate (Toprol Xl) 100 mg PO DAILY [facility] Last Admin: 12/07/17 09:30 Dose: 100 mg Minoxidil (Minoxidil) 2.5 mg PO DAILY [facility] Last Admin: 12/07/17 09:28 Dose: 2.5 mg Morphine Sulfate (Morphine) 3 mg IVP Q4 PRN PRN Reason: Pain, severe (8-10) Last Admin: 12/07/17 12:46 Dose: 3 mg Ondansetron HCl (Zofran Inj) 4 mg IVP Q4 PRN PRN Reason: Nausea/Vomiting Vitamin B Complex/Vit C/Folic Acid (Nephro-Trisha) 1 tab PO DAILY [facility] Last Admin: 12/07/17 09:27 Dose: 1 tab - Labs Labs: 12/07/17 08:51 12/07/17 04:20 PT 11.8 Seconds (9.8-13.1) 12/06/17 11:15 INR 1.1 (0.9-1.2) 12/06/17 11:15 APTT 32.5 Seconds (25.6-37.1) 12/06/17 11:50
--- NOTE | 2017-12-07 21:41 | CON ---
DATE: HISTORY OF PRESENT ILLNESS: This is a 47-year-old gentleman who came into the emergency room yesterday because of abdominal pain. I saw him in the emergency room yesterday. He is a dialysis patient. Apparently, he had been abusive of his potential diet and felt that the food had caused him anterior abdominal pain. When he came in, his blood pressure was in excess of 200 systolic with excess of 100 in diastolic evaluation. He denies any trauma to the flank area. He did have a CT scan done upon admission and of interest, the CT scan showed the presence of a marked enlargement of the left kidney not secondary to any obstructive uropathy, not secondary to any hydronephrosis, this appears to be a kidney that is significantly swollen and potentially the formation of a renal bleed within the renal capsule. It appears to be no extravasation around the capsule at this time. The bladder was unremarkable, did show some slight bladder wall thickening. No other significant finding on the CAT scan was noted. The patient on physical examination did not have any acute flank pain at the time he was seen in the emergency room. Again, at that time, I had reduced some blood work showed that he had hemoglobin of 9.4, hematocrit of 29 and he was being treated with significant dosages of Dilaudid because he has a low pain tolerance and a high threshold for medication. Review the results again this morning and hemoglobin now has dropped to 5.9 with a hematocrit of 17 consistent could be a bleed within the renal capsule. I think at this time as long as the bleed is contained within the renal unit that close observation will be preferred mode of treatment. We will probably repeat a CT scan today to see if there is any change in that status and we will followup accordingly depending on the self-limiting ability of this hematoma within the left renal unit. Jayden Neal MD
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
[2017-12-08] MEDS: Morphine 4 MG/ML VIAL IVP PRN ×3 (03:54→19:48)
[2017-12-08 06:04] LABS: HEMOGLOBIN 8.5 g/dL (12.0-18.0); MEAN CELL VOLUME 83.3 fl (80.0-94.0); MEAN CORPUSCULAR HEMOGLOBIN 28.9 pg (27.0-31.0); MEAN CORPUSCULAR HGB CONC 34.7 g/dL (33.0-37.0); RBC 2.95 Mil/uL (4.40-5.90); RED CELL DISTRIBUTION WIDTH 18.5 % (11.5-14.5); WHITE BLOOD COUNT 10.8 K/uL (4.8-10.8)
[2017-12-08] MEDS: Metoprolol Succinate 100 mg XL Tab PO SCH (08:19)
[2017-12-08] MEDS: Multivitamin Vitamin B Complex (Nephro-Vite) Tab PO SCH (09:01)
--- NOTE | 2017-12-08 11:12 | CT ---
PROCEDURE: CT Abdomen and Pelvis without intravenous contrast HISTORY: follow up cyst hemorrhaging, discussed with uro COMPARISON: CT scan of the abdomen and pelvis dated 12/06/2017. TECHNIQUE: Contiguous images were obtained from the domes of the diaphragms to the upper thighs without the administration of intravenous contrast. Oral contrast was not administered. Radiation dose: Total exam DLP = 555.6 mGy-cm. This CT exam was performed using one or more of the following dose reduction techniques: Automated exposure control, adjustment of the mA and/or kV according to patient size, and/or use of iterative reconstruction technique. FINDINGS: LOWER THORAX: Partially imaged catheter with tip terminating in the upper right atrium. LIVER: Unremarkable. No gross lesion or ductal dilatation. GALLBLADDER AND BILE DUCTS: Unremarkable. PANCREAS: Unremarkable. No gross lesion or ductal dilatation. SPLEEN: Unremarkable. ADRENALS: Stable left adrenal nodular enlargement. KIDNEYS AND URETERS: Similar appearance of diffuse hemorrhagic expansion of left kidney with slight increase in amount of perinephric/retroperitoneum hemorrhage. Stable appearance of right kidney. VASCULATURE: Limited evaluation due to absence of intravenous contrast all. Atherosclerotic aortic calcifications. No aortic aneurysm. BOWEL: Sigmoid diverticulosis. No obstruction. No gross mural thickening. APPENDIX: Unremarkable. Normal appendix. PERITONEUM: New thickening of the left inguinal canal. No free air. LYMPH NODES: Unremarkable. No enlarged lymph nodes. BLADDER: Unremarkable. REPRODUCTIVE: Unremarkable. BONES: No acute fracture. OTHER FINDINGS: None. IMPRESSION: Grossly similar hemorrhagic expansion of the left renal kidney with mild increase in perinephric/retroperitoneal hemorrhage. New thickening of the left inguinal canal. Impaired left gonadal venous return cannot be excluded. Previously described left pelvic calcification represents stable calcific atherosclerosis of the left common iliac artery bifurcation. Stable additional findings as above.
[2017-12-08] MEDS: Epoetin Alfa 4000 UNIT/ML Inj IV SCH (12:00)
--- NOTE | 2017-12-08 13:13 | CP.PCM.PN ---
Subjective - Date & Time of Evaluation Date of Evaluation: 12/08/17 Time of Evaluation: 08:40 - Subjective Subjective: F/U Abdominal pain. Pt c/o of upper abdominal pain. Objective - Vital Signs/Intake and Output Vital Signs (last 24 hours): Temp Pulse Resp BP Pulse Ox 98.3 F 73 18 141/103 H 98 12/08/17 11:55 12/08/17 13:03 12/08/17 11:55 12/08/17 13:03 12/08/17 11:55 - Medications Medications: Current Medications Albuterol/Ipratropium (Duoneb 3 Mg/0.5 Mg (3 Ml) Ud) 3 ml INH RTID PRN PRN Reason: Shortness of Breath Allopurinol (Zyloprim) 100 mg PO DAILY [facility] Last Admin: 12/08/17 09:01 Dose: 100 mg Calcium Acetate (Phoslo) 2,001 mg PO WM [facility] Last Admin: 12/08/17 09:00 Dose: 2,001 mg Cinacalcet (Sensipar) 30 mg PO DAILY [facility] Last Admin: 12/08/17 09:01 Dose: 30 mg Clonidine HCl (Catapres) 0.3 mg PO TID [facility] Last Admin: 12/08/17 13:03 Dose: 0.3 mg Enalapril Maleate (Vasotec) 20 mg PO BID [facility] Last Admin: 12/08/17 08:21 Dose: 20 mg Epoetin Helder (Procrit) 4,000 unit IV TTS [facility] Last Admin: 12/08/17 12:00 Dose: 4,000 unit Furosemide (Lasix) 40 mg PO DAILY [facility] Last Admin: 12/08/17 08:21 Dose: 40 mg Iron Sucrose 200 mg/ Sodium (Chloride) 110 mls @ 110 mls/hr IVPB TTS [facility] Stop: 12/17/17 09:59 Last Admin: 12/08/17 11:59 Dose: 110 mls/hr Metoprolol Succinate (Toprol Xl) 100 mg PO DAILY [facility] Last Admin: 12/08/17 08:19 Dose: 100 mg Minoxidil (Minoxidil) 2.5 mg PO DAILY [facility] Last Admin: 12/08/17 08:21 Dose: 2.5 mg Morphine Sulfate (Morphine) 3 mg IVP Q4 PRN PRN Reason: Pain, severe (8-10) Last Admin: 12/08/17 03:54 Dose: 3 mg Ondansetron HCl (Zofran Inj) 4 mg IVP Q4 PRN PRN Reason: Nausea/Vomiting Vitamin B Complex/Vit C/Folic Acid (Nephro-Trisha) 1 tab PO DAILY [facility] Last Admin: 12/08/17 09:01 Dose: 1 tab - Labs Labs: 12/08/17 04:20 12/07/17 04:20 PT 11.8 Seconds (9.8-13.1) 12/06/17 11:15 INR 1.1 (0.9-1.2) 12/06/17 11:15 APTT 32.5 Seconds (25.6-37.1) 12/06/17 11:50 - Constitutional Appears: No Acute Distress - Head Exam Head Exam: NORMAL INSPECTION - Eye Exam Eye Exam: PERRL - ENT Exam ENT Exam: Normal Exam - Neck Exam Neck Exam: Normal Inspection - Respiratory Exam Respiratory Exam: Clear to Ausculation Bilateral - Cardiovascular Exam Cardiovascular Exam: REGULAR RHYTHM - GI/Abdominal Exam GI & Abdominal Exam: Tenderness (LUQ, L Flank), Normal Bowel Sounds - Extremities Exam Extremities Exam: Normal Inspection - Back Exam Back Exam: NORMAL INSPECTION - Neurological Exam Neurological Exam: Alert, Oriented x3. absent: Motor Sensory Deficit - Psychiatric Exam Psychiatric exam: Normal Mood - Skin Skin Exam: Warm Assessment and Plan (1) Abdominal pain Status: Acute (2) ESRD (end stage renal disease) on dialysis Status: Chronic (3) Uncontrolled hypertension Status: Acute (4) Severe anemia Status: Acute (5) Enlarged kidney Status: Acute (6) Hyperkalemia Status: Acute - Assessment and Plan (Free Text) Plan: Abd/Pelv CT showed: Glossy similar hemorrhage expansion of the L renal kidney with mild increased in perinephric/retroperitoneal hemorrhage. New thikening of the L inguinal canal. Impaired L gonadal venous return cannot be excluded. Pt has transfused 2 U PRBC, Hgb 5.9, CT , f/u CBC in AM.
--- NOTE | 2017-12-08 15:10 | CP.PCM.PN ---
Subjective - Date & Time of Evaluation Date of Evaluation: 12/08/17 Time of Evaluation: 15:10 - Subjective Subjective: Nephrology Consultation: Assessment: critical Uncontrolled severe HTN with Urgency Left kidney enlargement ? ruptured kidney cyst with hemorrhage with anemia of acute blood loss Hypertensive Chronic Kidney Disease (I12.0) End stage renal disease (N18.6) dependence on hemodialysis (Z99.2) (TTS) via permacath Anemia (D64.9), Hyperphosphatemia (E83.39), Secondary Hyperparathyroidism (E21.1 ), HTN (I12.0) Plan: seen on hd today continue per schedule TTS PRBC as needed for anemia and epogen with hd Continue with phos binders BP control with meds as ordered. urology on board, can consider angio embolization for bleeding control if recurs Physical Examination: General Appearance: uncomfortable, in no acute respiratory distress, co- operative . Head; Atraumatic, normocephalic ENT: no ulcers no thrush. Tongue is midline. Oropharynx: no rash or ulcers. EYES: Pupils are equal, round and reactive to light accommodation. Eye muscles and extraocular movement intact. Sclera is anicteric. Neck; supple no lymphadenopathy, no thyromegaly or bruit Lungs: Normal respiratory rate/effort. Breath sounds bilateral equal and clear Heart: Normal rate. s1s2 normal. No rub or gallop. Extremities: no edema. No varicose veins Neurological: Patient is alert, awake and oriented to person, place and time. No focal deficit. Strength bilateral appropriate and equal Skin: Warm and dry. Normal turgor. No rash. Palpitation: Normal elasticity for age Abdomen: Abdomen is soft. Bowel sounds +. There is left flank abdominal tenderness, no guarding/rigidity or organomegaly Psych: normal insight and normal affect/mood MSK: no joint tenderness or swelling. Digits and nails normal, no deformity : kidney or bladder not palpable Objective - Vital Signs/Intake and Output Vital Signs (last 24 hours): Temp Pulse Resp BP Pulse Ox 98.3 F 73 18 141/103 H 98 12/08/17 11:55 12/08/17 13:03 12/08/17 11:55 12/08/17 13:03 12/08/17 11:55 - Medications Medications: Current Medications Albuterol/Ipratropium (Duoneb 3 Mg/0.5 Mg (3 Ml) Ud) 3 ml INH RTID PRN PRN Reason: Shortness of Breath Allopurinol (Zyloprim) 100 mg PO DAILY [facility] Last Admin: 12/08/17 09:01 Dose: 100 mg Calcium Acetate (Phoslo) 2,001 mg PO WM [facility] Last Admin: 12/08/17 13:42 Dose: 2,001 mg Cinacalcet (Sensipar) 30 mg PO DAILY [facility] Last Admin: 12/08/17 09:01 Dose: 30 mg Clonidine HCl (Catapres) 0.3 mg PO TID [facility] Last Admin: 12/08/17 13:03 Dose: 0.3 mg Enalapril Maleate (Vasotec) 20 mg PO BID [facility] Last Admin: 12/08/17 08:21 Dose: 20 mg Epoetin Helder (Procrit) 4,000 unit IV TTS [facility] Last Admin: 12/08/17 12:00 Dose: 4,000 unit Furosemide (Lasix) 40 mg PO DAILY [facility] Last Admin: 12/08/17 08:21 Dose: 40 mg Iron Sucrose 200 mg/ Sodium (Chloride) 110 mls @ 110 mls/hr IVPB TTS [facility] Stop: 12/17/17 09:59 Last Admin: 12/08/17 11:59 Dose: 110 mls/hr Metoprolol Succinate (Toprol Xl) 100 mg PO DAILY [facility] Last Admin: 12/08/17 08:19 Dose: 100 mg Minoxidil (Minoxidil) 2.5 mg PO DAILY [facility] Last Admin: 12/08/17 08:21 Dose: 2.5 mg Morphine Sulfate (Morphine) 3 mg IVP Q4 PRN PRN Reason: Pain, severe (8-10) Last Admin: 12/08/17 03:54 Dose: 3 mg Ondansetron HCl (Zofran Inj) 4 mg IVP Q4 PRN PRN Reason: Nausea/Vomiting Vitamin B Complex/Vit C/Folic Acid (Nephro-Trisha) 1 tab PO DAILY [facility] Last Admin: 12/08/17 09:01 Dose: 1 tab - Labs Labs: 12/08/17 04:20 12/07/17 04:20 PT 11.8 Seconds (9.8-13.1) 12/06/17 11:15 INR 1.1 (0.9-1.2) 12/06/17 11:15 APTT 32.5 Seconds (25.6-37.1) 12/06/17 11:50
[2017-12-09] MEDS: Morphine 4 MG/ML VIAL IVP PRN ×6 (00:21→20:38)
[2017-12-09] MEDS ORDERED: Morphine 4 MG/ML VIAL IVP STA (05:51)
[2017-12-09 06:05] LABS: MEAN CELL VOLUME 85.1 fl (80.0-94.0); MEAN CORPUSCULAR HEMOGLOBIN 28.2 pg (27.0-31.0); MEAN CORPUSCULAR HGB CONC 33.2 g/dL (33.0-37.0); RBC 3.18 Mil/uL (4.40-5.90); RED CELL DISTRIBUTION WIDTH 18.2 % (11.5-14.5); WHITE BLOOD COUNT 10.4 K/uL (4.8-10.8)
[2017-12-09] MEDS ORDERED: Lidocaine 5% Patch TD SCH ×2 (09:00)
--- NOTE | 2017-12-09 09:03 | CP.PCM.PN ---
Subjective - Date & Time of Evaluation Date of Evaluation: 12/09/17 Time of Evaluation: 09:01 - Subjective Subjective: Nephrology Consultation: Assessment: critical Uncontrolled severe HTN with Urgency Left kidney enlargement ? ruptured kidney cyst with hemorrhage with anemia of acute blood loss Hypertensive Chronic Kidney Disease (I12.0) End stage renal disease (N18.6) dependence on hemodialysis (Z99.2) (TTS) via permacath Anemia (D64.9), Hyperphosphatemia (E83.39), Secondary Hyperparathyroidism (E21.1 ), HTN (I12.0) Pain Plan: HD tomorrow, continue on TTS schedule PRBC as needed for anemia and epogen with hd Continue with phos binders BP control with meds as ordered likely worsened due to pain. will ad norvasc to bp meds f/u w/ consider repeat imaging to see if further compression and whether any drainage or emobolization procedures warranted. BP also may be elevated from page kidney. hemoglobin does appear stable today pain control per primary check phos level S: Seen and exxmained, remains in severe pain Physical Examination: General Appearance: uncomfortable, in no acute respiratory distress, co- operative . Head; Atraumatic, normocephalic ENT: no ulcers no thrush. Tongue is midline. Oropharynx: no rash or ulcers. EYES: Pupils are equal, round and reactive to light accommodation. Eye muscles and extraocular movement intact. Sclera is anicteric. Neck; supple no lymphadenopathy, no thyromegaly or bruit Lungs: Normal respiratory rate/effort. Breath sounds bilateral equal and clear Heart: Normal rate. s1s2 normal. No rub or gallop. Extremities: no edema. No varicose veins Neurological: Patient is alert, awake and oriented to person, place and time. No focal deficit. Strength bilateral appropriate and equal Skin: Warm and dry. Normal turgor. No rash. Palpitation: Normal elasticity for age Abdomen: Abdomen is soft. Bowel sounds +. There is left flank abdominal tenderness and swelling L flank Psych: normal insight and normal affect/mood MSK: no joint tenderness or swelling. Digits and nails normal, no deformity : kidney or bladder not palpable Objective - Vital Signs/Intake and Output Vital Signs (last 24 hours): Temp Pulse Resp BP Pulse Ox 98.7 F 111 H 20 168/107 H 99 12/09/17 08:16 12/09/17 08:16 12/09/17 08:16 12/09/17 08:16 12/09/17 08:16 - Medications Medications: Current Medications Albuterol/Ipratropium (Duoneb 3 Mg/0.5 Mg (3 Ml) Ud) 3 ml INH RTID PRN PRN Reason: Shortness of Breath Allopurinol (Zyloprim) 100 mg PO DAILY [facility] Last Admin: 12/08/17 09:01 Dose: 100 mg Calcium Acetate (Phoslo) 2,001 mg PO WM [facility] Last Admin: 12/08/17 17:36 Dose: 2,001 mg Cinacalcet (Sensipar) 30 mg PO DAILY [facility] Last Admin: 12/08/17 09:01 Dose: 30 mg Clonidine HCl (Catapres) 0.3 mg PO TID [facility] Last Admin: 12/09/17 06:06 Dose: 0.3 mg Enalapril Maleate (Vasotec) 20 mg PO BID [facility] Last Admin: 12/08/17 17:34 Dose: 20 mg Epoetin Helder (Procrit) 4,000 unit IV TTS [facility] Last Admin: 12/08/17 12:00 Dose: 4,000 unit Furosemide (Lasix) 40 mg PO DAILY [facility] Last Admin: 12/08/17 08:21 Dose: 40 mg Iron Sucrose 200 mg/ Sodium (Chloride) 110 mls @ 110 mls/hr IVPB TTS [facility] Stop: 12/17/17 09:59 Last Admin: 12/08/17 11:59 Dose: 110 mls/hr Lidocaine (Lidoderm) 2 ea TD DAILY [facility] Metoprolol Succinate (Toprol Xl) 100 mg PO DAILY [facility] Last Admin: 12/08/17 08:19 Dose: 100 mg Minoxidil (Minoxidil) 2.5 mg PO DAILY [facility] Last Admin: 12/08/17 08:21 Dose: 2.5 mg Morphine Sulfate (Morphine) 4 mg IVP Q4 PRN PRN Reason: Pain, severe (8-10) Last Admin: 12/09/17 05:01 Dose: 4 mg Ondansetron HCl (Zofran Inj) 4 mg IVP Q4 PRN PRN Reason: Nausea/Vomiting Last Admin: 12/09/17 07:54 Dose: 4 mg Vitamin B Complex/Vit C/Folic Acid (Nephro-Trisha) 1 tab PO DAILY [facility] Last Admin: 12/08/17 09:01 Dose: 1 tab - Labs Labs: 12/09/17 04:20 12/07/17 04:20 PT 11.8 Seconds (9.8-13.1) 12/06/17 11:15 INR 1.1 (0.9-1.2) 12/06/17 11:15 APTT 32.5 Seconds (25.6-37.1) 12/06/17 11:50
[2017-12-09] MEDS: Metoprolol Succinate 100 mg XL Tab PO SCH (09:11)
[2017-12-09] MEDS: Lidocaine 5% Patch TD SCH (09:14)
[2017-12-09] MEDS: Multivitamin Vitamin B Complex (Nephro-Vite) Tab PO SCH (10:55)
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
[2017-12-09] MEDS: oxyCODONE 10 mg ER Tab (oxyCONTIN) PO SCH ×2 (12:27→17:47)
--- NOTE | 2017-12-09 14:10 | CP.PCM.PCO ---
Assessment/Plan - Assessment and Plan (Free Text) Assessment: Patient seen and examined this early afternoon. Patient with extensive pain to back 10/10 secondary to hemorrhaging cyst. Anesthesia titrating pain medications carefully. Bp uncontrolled, enalapril iv added, will cont to closely monitor. Plan discussed with Dr Gonzáles, hgb has remained stable at 9.[address] scan shows stable hemorrhaging cyst with likelyhood that it has spontaneously tamponaded. No plans for surgical intervention as per MD, just careful CBC trending and pain management. All of this discussed with Dr Harrell. Will cont to closely monitor.
[2017-12-09] MEDS: EnalaprilAT 1.25 mg/ml Inj IV SCH ×2 (14:18→18:52)
--- NOTE | 2017-12-09 15:20 | CP.PCM.PN ---
Subjective - Date & Time of Evaluation Date of Evaluation: 12/09/17 Time of Evaluation: 14:20 - Subjective Subjective: F/U Abdominal pain Pt c/o severe pain L abdomen, L flank. Objective - Vital Signs/Intake and Output Vital Signs (last 24 hours): Temp Pulse Resp BP Pulse Ox 97.6 F 95 H 20 190/136 H 100 12/09/17 12:09 12/09/17 12:30 12/09/17 12:09 12/09/17 14:18 12/09/17 12:09 - Medications Medications: Current Medications Albuterol/Ipratropium (Duoneb 3 Mg/0.5 Mg (3 Ml) Ud) 3 ml INH RTID PRN PRN Reason: Shortness of Breath Allopurinol (Zyloprim) 100 mg PO DAILY [facility] Last Admin: 12/09/17 10:55 Dose: Not Given Amlodipine Besylate (Norvasc) 5 mg PO BID [facility] Calcium Acetate (Phoslo) 2,001 mg PO WM [facility] Last Admin: 12/09/17 14:19 Dose: Not Given Cinacalcet (Sensipar) 30 mg PO DAILY [facility] Last Admin: 12/09/17 10:55 Dose: Not Given Clonidine HCl (Catapres) 0.3 mg PO TID [facility] Last Admin: 12/09/17 12:30 Dose: 0.3 mg Enalaprilat (Vasotec Iv) 2.5 mg IV Q6 [facility] Last Admin: 12/09/17 14:18 Dose: 2.5 mg Epoetin Helder (Procrit) 4,000 unit IV TTS [facility] Last Admin: 12/08/17 12:00 Dose: 4,000 unit Furosemide (Lasix) 40 mg PO DAILY [facility] Last Admin: 12/09/17 09:16 Dose: 40 mg Gabapentin (Neurontin) 100 mg PO TID [facility] Last Admin: 12/09/17 12:31 Dose: 100 mg Iron Sucrose 200 mg/ Sodium (Chloride) 110 mls @ 110 mls/hr IVPB TTS [facility] Stop: 12/17/17 09:59 Last Admin: 12/08/17 11:59 Dose: 110 mls/hr Lidocaine (Lidoderm) 2 ea TD DAILY [facility] Last Admin: 12/09/17 09:14 Dose: Not Given Metoprolol Succinate (Toprol Xl) 100 mg PO DAILY [facility] Last Admin: 12/09/17 09:11 Dose: 100 mg Minoxidil (Minoxidil) 2.5 mg PO DAILY [facility] Last Admin: 12/09/17 09:13 Dose: 2.5 mg Morphine Sulfate (Morphine) 4 mg IVP Q3 PRN PRN Reason: Pain, severe (8-10) Last Admin: 12/09/17 12:28 Dose: 4 mg Ondansetron HCl (Zofran Inj) 4 mg IVP Q4 PRN PRN Reason: Nausea/Vomiting Last Admin: 12/09/17 07:54 Dose: 4 mg Oxycodone HCl (Oxycontin Extended Release Tab) 10 mg PO Q8 [facility] Stop: 12/12/17 12:16 Last Admin: 12/09/17 12:27 Dose: 10 mg Vitamin B Complex/Vit C/Folic Acid (Nephro-Trisha) 1 tab PO DAILY [facility] Last Admin: 12/09/17 10:55 Dose: Not Given - Labs Labs: 12/09/17 04:20 12/07/17 04:20 PT 11.8 Seconds (9.8-13.1) 12/06/17 11:15 INR 1.1 (0.9-1.2) 12/06/17 11:15 APTT 32.5 Seconds (25.6-37.1) 12/06/17 11:50 - Constitutional Appears: Chronically Ill - Head Exam Head Exam: NORMAL INSPECTION - Eye Exam Eye Exam: PERRL - ENT Exam ENT Exam: Normal Exam - Neck Exam Neck Exam: Normal Inspection - Respiratory Exam Respiratory Exam: Clear to Ausculation Bilateral - Cardiovascular Exam Cardiovascular Exam: REGULAR RHYTHM - GI/Abdominal Exam GI & Abdominal Exam: Tenderness (LUQ, L flank), Normal Bowel Sounds - Extremities Exam Extremities Exam: Normal Inspection - Back Exam Back Exam: NORMAL INSPECTION - Neurological Exam Neurological Exam: Alert, Oriented x3. absent: Motor Sensory Deficit - Psychiatric Exam Psychiatric exam: Normal Mood - Skin Skin Exam: Warm Assessment and Plan (1) Abdominal pain Status: Acute (2) ESRD (end stage renal disease) on dialysis Status: Chronic (3) Uncontrolled hypertension Status: Acute (4) Severe anemia Status: Acute (5) Enlarged kidney Status: Acute (6) Hyperkalemia Status: Acute - Assessment and Plan (Free Text) Plan: Pain management increased pain medication, BP controlled, continue HD. Pain Management consult appreciated, Cardiology Consult.
[2017-12-09] MEDS: Enalaprilat 2.5 MG/2 ML IV SCH ×2 (18:53→22:30)
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
[2017-12-10] MEDS: oxyCODONE 10 mg ER Tab (oxyCONTIN) PO SCH ×3 (01:15→19:42)
[2017-12-10] MEDS: Morphine 4 MG/ML VIAL IVP PRN ×2 (02:14→09:18)
[2017-12-10] MEDS: Enalaprilat 2.5 MG/2 ML IV SCH ×4 (05:27→22:03)
--- NOTE | 2017-12-10 08:18 | CP.PCM.PN ---
Subjective - Date & Time of Evaluation Date of Evaluation: 12/10/17 Time of Evaluation: 08:15 - Subjective Subjective: Nephrology Consultation: Assessment: critical Uncontrolled severe HTN with Urgency Left kidney enlargement ? ruptured kidney cyst with hemorrhage with anemia of acute blood loss Hypertensive Chronic Kidney Disease (I12.0) End stage renal disease (N18.6) dependence on hemodialysis (Z99.2) (TTS) via permacath Anemia (D64.9), Hyperphosphatemia (E83.39), Secondary Hyperparathyroidism (E21.1 ), HTN (I12.0) Pain Plan: HD today TTS schedule PRBC as needed for anemia and epogen with hd Continue with phos binders Norvasc was increased to yesterday, will cut to 5 as some bp's were low f/u phos in range S: Seen and examined, pain much improved Physical Examination: General Appearance: no acute respiratory distress, co-operative . Head; Atraumatic, normocephalic ENT: no ulcers no thrush. Tongue is midline. Oropharynx: no rash or ulcers. EYES: Pupils are equal, round Sclera is anicteric. Neck; supple no lymphadenopathy, no thyromegaly or bruit Lungs: Normal respiratory rate/effort. Breath sounds bilateral equal and clear Heart: Normal rate. s1s2 normal. No rub or gallop. Extremities: no edema. No varicose veins Neurological: Patient is alert, awake and oriented to person, place and time. No focal deficit. Strength bilateral appropriate and equal Skin: Warm and dry. Normal turgor. No rash. Palpitation: Normal elasticity for age Abdomen: Abdomen is soft. Bowel sounds +. There is left flank abdominal tenderness and swelling L flank Psych: normal insight and normal affect/mood MSK: no joint tenderness or swelling. Digits and nails normal, no deformity : kidney or bladder not palpable Objective - Vital Signs/Intake and Output Vital Signs (last 24 hours): Temp Pulse Resp BP Pulse Ox 98.3 F 80 18 130/83 97 12/10/17 08:00 12/10/17 08:00 12/10/17 08:00 12/10/17 08:00 12/10/17 08:00 - Medications Medications: Current Medications Albuterol/Ipratropium (Duoneb 3 Mg/0.5 Mg (3 Ml) Ud) 3 ml INH RTID PRN PRN Reason: Shortness of Breath Allopurinol (Zyloprim) 100 mg PO DAILY [facility] Last Admin: 12/09/17 10:55 Dose: Not Given Amlodipine Besylate (Norvasc) 5 mg PO BID [facility] Last Admin: 12/09/17 17:53 Dose: 5 mg Calcium Acetate (Phoslo) 2,001 mg PO WM [facility] Last Admin: 12/09/17 17:49 Dose: 2,001 mg Cinacalcet (Sensipar) 30 mg PO DAILY [facility] Last Admin: 12/09/17 10:55 Dose: Not Given Clonidine HCl (Catapres) 0.3 mg PO TID [facility] Last Admin: 12/09/17 17:50 Dose: 0.3 mg Enalaprilat (Vasotec) 2.5 mg IV Q6 [facility] Last Admin: 12/10/17 05:27 Dose: Not Given Epoetin Helder (Procrit) 4,000 unit IV TTS [facility] Last Admin: 12/08/17 12:00 Dose: 4,000 unit Furosemide (Lasix) 40 mg PO DAILY [facility] Last Admin: 12/09/17 09:16 Dose: 40 mg Gabapentin (Neurontin) 100 mg PO TID [facility] Last Admin: 12/09/17 17:51 Dose: 100 mg Iron Sucrose 200 mg/ Sodium (Chloride) 110 mls @ 110 mls/hr IVPB TTS [facility] Stop: 12/17/17 09:59 Last Admin: 12/08/17 11:59 Dose: 110 mls/hr Lidocaine (Lidoderm) 2 ea TD DAILY [facility] Last Admin: 12/09/17 09:14 Dose: Not Given Metoprolol Succinate (Toprol Xl) 100 mg PO DAILY [facility] Last Admin: 12/09/17 09:11 Dose: 100 mg Minoxidil (Minoxidil) 2.5 mg PO DAILY [facility] Last Admin: 12/09/17 09:13 Dose: 2.5 mg Morphine Sulfate (Morphine) 4 mg IVP Q3 PRN PRN Reason: Pain, severe (8-10) Last Admin: 12/10/17 02:14 Dose: 4 mg Ondansetron HCl (Zofran Inj) 4 mg IVP Q4 PRN PRN Reason: Nausea/Vomiting Last Admin: 12/09/17 18:16 Dose: 4 mg Oxycodone HCl (Oxycontin Extended Release Tab) 10 mg PO Q8 [facility] Stop: 12/12/17 12:16 Last Admin: 12/10/17 01:15 Dose: Not Given Vitamin B Complex/Vit C/Folic Acid (Nephro-Trisha) 1 tab PO DAILY [facility] Last Admin: 12/09/17 10:55 Dose: Not Given - Labs Labs: 12/09/17 04:20 12/07/17 04:20 PT 11.8 Seconds (9.8-13.1) 12/06/17 11:15 INR 1.1 (0.9-1.2) 12/06/17 11:15 APTT 32.5 Seconds (25.6-37.1) 12/06/17 11:50
[2017-12-10] MEDS: Epoetin Alfa 4000 UNIT/ML Inj IV SCH (09:08)
[2017-12-10] MEDS: Lidocaine 5% Patch TD SCH (09:10)
[2017-12-10] MEDS: Multivitamin Vitamin B Complex (Nephro-Vite) Tab PO SCH ×2 (09:11→14:01)
[2017-12-10] MEDS: Metoprolol Succinate 100 mg XL Tab PO SCH (09:12)
[2017-12-10 10:11] LABS: MEAN CELL VOLUME 84.6 fl (80.0-94.0); MEAN CORPUSCULAR HEMOGLOBIN 27.7 pg (27.0-31.0); MEAN CORPUSCULAR HGB CONC 32.8 g/dL (33.0-37.0); RBC 2.89 Mil/uL (4.40-5.90); RED CELL DISTRIBUTION WIDTH 18.1 % (11.5-14.5); WHITE BLOOD COUNT 11.1 K/uL (4.8-10.8)
[2017-12-10 11:13] LABS: BASO % 0.4 % (0.0-2.0); EOS # 0.1 K/uL (0.0-0.7); EOS % 0.5 % (0.0-4.0); HEMOGLOBIN 7.9 g/dL (12.0-18.0); LYMPH # 0.7 K/uL (1.0-4.3); LYMPH % 6.6 % (20.0-40.0); MEAN CELL VOLUME 84.1 fl (80.0-94.0); MEAN CORPUSCULAR HEMOGLOBIN 28.8 pg (27.0-31.0); MEAN CORPUSCULAR HGB CONC 34.2 g/dL (33.0-37.0); MEAN PLATELET VOLUME 10.7 fl (7.2-11.7); MONO # 0.7 K/uL (0.0-0.8); MONO % 6.7 % (0.0-10.0); NEUT # 9.2 K/uL (1.8-7.0); NEUT % 85.8 % (50.0-75.0); PLATELET COUNT 181 K/uL (130-400); RBC 2.76 Mil/uL (4.40-5.90); RED CELL DISTRIBUTION WIDTH 18.3 % (11.5-14.5); WHITE BLOOD COUNT 10.7 K/uL (4.8-10.8)
[2017-12-10 14:37] LABS: ANISOCYTOSIS SLIGHT; BASOPHIL 1 % (0-2); LYMPHOCYTE 6 % (20-50); MONOCYTE 8 % (0-10); NEUTROPHIL 85 % (42-75); PLATELET ESTIMATE NORMAL (NORMAL); TOTAL CELLS COUNTED 100
[2017-12-10 14:38] LABS: HYPOCHROMIC SLIGHT; LARGE PLATELETS PRESENT; OVALOCYTES SLIGHT; SCHISTOCYTES SLIGHT; TARGET CELLS SLIGHT
--- NOTE | 2017-12-10 15:36 | CP.PCM.PN ---
Subjective - Date & Time of Evaluation Date of Evaluation: 12/10/17 Time of Evaluation: 15:33 - Subjective Subjective: urology pt seen today feeling much better overall. CB C slightly lower than yesterday but acceptable. QAt this time management of the renal hematoma will be to monitor conservatively. with interval renal ultrasound to monitor resolution of the renal bleed Objective - Vital Signs/Intake and Output Vital Signs (last 24 hours): Temp Pulse Resp BP Pulse Ox 98.0 F 113 H 18 142/93 H 98 12/10/17 12:00 12/10/17 14:01 12/10/17 12:00 12/10/17 14:01 12/10/17 12:00 - Medications Medications: Current Medications Albuterol/Ipratropium (Duoneb 3 Mg/0.5 Mg (3 Ml) Ud) 3 ml INH RTID PRN PRN Reason: Shortness of Breath Allopurinol (Zyloprim) 100 mg PO DAILY [facility] Last Admin: 12/10/17 14:02 Dose: 100 mg Amlodipine Besylate (Norvasc) 5 mg PO DAILY [facility] Last Admin: 12/10/17 14:00 Dose: 5 mg Calcium Acetate (Phoslo) 2,001 mg PO WM [facility] Last Admin: 12/10/17 14:02 Dose: 2,001 mg Cinacalcet (Sensipar) 30 mg PO DAILY [facility] Last Admin: 12/10/17 14:01 Dose: 30 mg Clonidine HCl (Catapres) 0.3 mg PO TID [facility] Last Admin: 12/10/17 14:01 Dose: 0.3 mg Enalaprilat (Vasotec) 2.5 mg IV Q6 [facility] Last Admin: 12/10/17 14:02 Dose: Not Given Epoetin Helder (Procrit) 4,000 unit IV TTS [facility] Last Admin: 12/10/17 09:08 Dose: 4,000 unit Furosemide (Lasix) 40 mg PO DAILY [facility] Last Admin: 12/10/17 14:01 Dose: 40 mg Gabapentin (Neurontin) 100 mg PO TID [facility] Last Admin: 12/10/17 14:02 Dose: 100 mg Iron Sucrose 200 mg/ Sodium (Chloride) 110 mls @ 110 mls/hr IVPB TTS [facility] Stop: 12/17/17 09:59 Last Admin: 12/10/17 09:19 Dose: 110 mls/hr Lidocaine (Lidoderm) 2 ea TD DAILY [facility] Last Admin: 12/10/17 09:10 Dose: Not Given Metoprolol Succinate (Toprol Xl) 100 mg PO DAILY [facility] Last Admin: 12/10/17 09:12 Dose: 100 mg Minoxidil (Minoxidil) 2.5 mg PO DAILY [facility] Last Admin: 12/10/17 14:01 Dose: 2.5 mg Morphine Sulfate (Morphine) 4 mg IVP Q3 PRN PRN Reason: Pain, severe (8-10) Last Admin: 12/10/17 09:18 Dose: 4 mg Ondansetron HCl (Zofran Inj) 4 mg IVP Q4 PRN PRN Reason: Nausea/Vomiting Last Admin: 12/10/17 14:00 Dose: 4 mg Oxycodone HCl (Oxycontin Extended Release Tab) 10 mg PO Q8 [facility] Stop: 12/12/17 12:16 Last Admin: 12/10/17 09:18 Dose: 10 mg Vitamin B Complex/Vit C/Folic Acid (Nephro-Trisha) 1 tab PO DAILY [facility] Last Admin: 12/10/17 14:01 Dose: 1 tab - Labs Labs: 12/10/17 11:08 12/07/17 04:20 PT 11.8 Seconds (9.8-13.1) 12/06/17 11:15 INR 1.1 (0.9-1.2) 12/06/17 11:15 APTT 32.5 Seconds (25.6-37.1) 12/06/17 11:50
[2017-12-10 16:49] LABS: HEPATITIS B SURFACE AG Negative (NEGATIVE)
[2017-12-10 16:54] LABS: HEPATITIS B CORE AB NEGATIVE (NEGATIVE)
[2017-12-10 17:07] LABS: HEPATITIS C ANTIBODY NEGATIVE (NEGATIVE)
--- NOTE | 2017-12-10 18:22 | CP.PCM.PN ---
Subjective - Date & Time of Evaluation Date of Evaluation: 12/10/17 Time of Evaluation: 11:55 - Subjective Subjective: F/U abdominal pain. Objective - Vital Signs/Intake and Output Vital Signs (last 24 hours): Temp Pulse Resp BP Pulse Ox 99.0 F 95 H 20 100/69 98 12/10/17 16:02 12/10/17 16:02 12/10/17 16:02 12/10/17 16:02 12/10/17 16:02 - Medications Medications: Current Medications Albuterol/Ipratropium (Duoneb 3 Mg/0.5 Mg (3 Ml) Ud) 3 ml INH RTID PRN PRN Reason: Shortness of Breath Allopurinol (Zyloprim) 100 mg PO DAILY [facility] Last Admin: 12/10/17 14:02 Dose: 100 mg Amlodipine Besylate (Norvasc) 5 mg PO DAILY [facility] Last Admin: 12/10/17 14:00 Dose: 5 mg Calcium Acetate (Phoslo) 2,001 mg PO WM [facility] Last Admin: 12/10/17 14:02 Dose: 2,001 mg Cinacalcet (Sensipar) 30 mg PO DAILY [facility] Last Admin: 12/10/17 14:01 Dose: 30 mg Clonidine HCl (Catapres) 0.3 mg PO TID [facility] Last Admin: 12/10/17 14:01 Dose: 0.3 mg Enalaprilat (Vasotec) 2.5 mg IV Q6 [facility] Last Admin: 12/10/17 14:02 Dose: Not Given Epoetin Helder (Procrit) 4,000 unit IV TTS [facility] Last Admin: 12/10/17 09:08 Dose: 4,000 unit Furosemide (Lasix) 40 mg PO DAILY [facility] Last Admin: 12/10/17 14:01 Dose: 40 mg Gabapentin (Neurontin) 100 mg PO TID [facility] Last Admin: 12/10/17 14:02 Dose: 100 mg Iron Sucrose 200 mg/ Sodium (Chloride) 110 mls @ 110 mls/hr IVPB TTS [facility] Stop: 12/17/17 09:59 Last Admin: 12/10/17 09:19 Dose: 110 mls/hr Lidocaine (Lidoderm) 2 ea TD DAILY [facility] Last Admin: 12/10/17 09:10 Dose: Not Given Metoprolol Succinate (Toprol Xl) 100 mg PO DAILY [facility] Last Admin: 12/10/17 09:12 Dose: 100 mg Minoxidil (Minoxidil) 2.5 mg PO DAILY [facility] Last Admin: 12/10/17 14:01 Dose: 2.5 mg Morphine Sulfate (Morphine) 4 mg IVP Q3 PRN PRN Reason: Pain, severe (8-10) Last Admin: 12/10/17 09:18 Dose: 4 mg Ondansetron HCl (Zofran Inj) 4 mg IVP Q4 PRN PRN Reason: Nausea/Vomiting Last Admin: 12/10/17 14:00 Dose: 4 mg Oxycodone HCl (Oxycontin Extended Release Tab) 10 mg PO Q8 [facility] Stop: 12/12/17 12:16 Last Admin: 12/10/17 09:18 Dose: 10 mg Vitamin B Complex/Vit C/Folic Acid (Nephro-Trisha) 1 tab PO DAILY [facility] Last Admin: 12/10/17 14:01 Dose: 1 tab - Labs Labs: 12/10/17 11:08 12/07/17 04:20 PT 11.8 Seconds (9.8-13.1) 12/06/17 11:15 INR 1.1 (0.9-1.2) 12/06/17 11:15 APTT 32.5 Seconds (25.6-37.1) 12/06/17 11:50 - Constitutional Appears: Chronically Ill - Head Exam Head Exam: NORMAL INSPECTION - Eye Exam Eye Exam: PERRL - ENT Exam ENT Exam: Normal Exam - Neck Exam Neck Exam: Normal Inspection - Respiratory Exam Respiratory Exam: NORMAL BREATHING PATTERN - Cardiovascular Exam Cardiovascular Exam: REGULAR RHYTHM - GI/Abdominal Exam GI & Abdominal Exam: Tenderness (LUQ, L flank), Normal Bowel Sounds - Extremities Exam Extremities Exam: Normal Inspection - Back Exam Back Exam: NORMAL INSPECTION - Neurological Exam Neurological Exam: Alert, Oriented x3. absent: Motor Sensory Deficit - Psychiatric Exam Psychiatric exam: Normal Mood - Skin Skin Exam: Warm Assessment and Plan (1) Abdominal pain Status: Acute (2) ESRD (end stage renal disease) on dialysis Status: Chronic (3) Uncontrolled hypertension Status: Acute (4) Severe anemia Status: Acute (5) Enlarged kidney Status: Acute (6) Hyperkalemia Status: Acute
[2017-12-11] MEDS: oxyCODONE 10 mg ER Tab (oxyCONTIN) PO SCH ×2 (02:47→12:12)
[2017-12-11] MEDS: Enalaprilat 2.5 MG/2 ML IV SCH ×2 (04:31→12:14)
[2017-12-11 05:42] LABS: HEMOGLOBIN 8.9 g/dL (12.0-18.0); MEAN CELL VOLUME 84.7 fl (80.0-94.0); MEAN CORPUSCULAR HEMOGLOBIN 28.2 pg (27.0-31.0); MEAN CORPUSCULAR HGB CONC 33.3 g/dL (33.0-37.0); RBC 3.16 Mil/uL (4.40-5.90); RED CELL DISTRIBUTION WIDTH 18.5 % (11.5-14.5); WHITE BLOOD COUNT 11.7 K/uL (4.8-10.8)
[2017-12-11] MEDS: Multivitamin Vitamin B Complex (Nephro-Vite) Tab PO SCH (08:58)
[2017-12-11] MEDS: Lidocaine 5% Patch TD SCH (09:00)
[2017-12-11] MEDS: Metoprolol Succinate 100 mg XL Tab PO SCH (12:13)
[2017-12-11 12:43] VITALS: BP 120/83; PULSE 108; RESP 20; TEMP 98.5; O2SAT 97
--- NOTE | 2017-12-11 13:42 | CP.PCM.PCO ---
Assessment/Plan - Assessment and Plan (Free Text) Assessment: Patient seen and examined. pain to abd/back has subsided, requiring less medications intravenous for pain Plan discussed with pain management: recommended to continue home regimen for pain, no extra medications warranted at this time. Patient cleared by Dr Neal with outpatient follow up. rx for pain medications given by dr johnson patient cleared for discharge.
--- NOTE | 2017-12-11 13:53 | CP.PCM.PN ---
Objective - Vital Signs/Intake and Output Vital Signs (last 24 hours): Temp Pulse Resp BP Pulse Ox 98.5 F 108 H 20 120/83 97 12/11/17 12:42 12/11/17 12:42 12/11/17 12:42 12/11/17 12:42 12/11/17 12:42 - Medications Medications: Current Medications Albuterol/Ipratropium (Duoneb 3 Mg/0.5 Mg (3 Ml) Ud) 3 ml INH RTID PRN PRN Reason: Shortness of Breath Allopurinol (Zyloprim) 100 mg PO DAILY [facility] Last Admin: 12/11/17 09:00 Dose: 100 mg Amlodipine Besylate (Norvasc) 5 mg PO DAILY [facility] Last Admin: 12/11/17 12:10 Dose: Not Given Calcium Acetate (Phoslo) 2,001 mg PO WM [facility] Last Admin: 12/11/17 08:58 Dose: 2,001 mg Cinacalcet (Sensipar) 30 mg PO DAILY [facility] Last Admin: 12/11/17 08:58 Dose: 30 mg Clonidine HCl (Catapres) 0.3 mg PO TID [facility] Last Admin: 12/11/17 08:58 Dose: 0.3 mg Enalaprilat (Vasotec) 2.5 mg IV Q6 [facility] Last Admin: 12/11/17 12:14 Dose: Not Given Epoetin Helder (Procrit) 4,000 unit IV TTS [facility] Last Admin: 12/10/17 09:08 Dose: 4,000 unit Furosemide (Lasix) 40 mg PO DAILY [facility] Last Admin: 12/11/17 12:14 Dose: Not Given Gabapentin (Neurontin) 100 mg PO TID [facility] Last Admin: 12/11/17 08:59 Dose: 100 mg Iron Sucrose 200 mg/ Sodium (Chloride) 110 mls @ 110 mls/hr IVPB TTS [facility] Stop: 12/17/17 09:59 Last Admin: 12/10/17 09:19 Dose: 110 mls/hr Lidocaine (Lidoderm) 2 ea TD DAILY [facility] Last Admin: 12/11/17 09:00 Dose: Not Given Metoprolol Succinate (Toprol Xl) 100 mg PO DAILY [facility] Last Admin: 12/11/17 12:13 Dose: Not Given Minoxidil (Minoxidil) 2.5 mg PO DAILY [facility] Last Admin: 12/11/17 09:02 Dose: 2.5 mg Morphine Sulfate (Morphine) 4 mg IVP Q3 PRN PRN Reason: Pain, severe (8-10) Last Admin: 12/10/17 09:18 Dose: 4 mg Ondansetron HCl (Zofran Inj) 4 mg IVP Q4 PRN PRN Reason: Nausea/Vomiting Last Admin: 12/10/17 23:34 Dose: 4 mg Oxycodone HCl (Oxycontin Extended Release Tab) 10 mg PO Q8 [facility] Stop: 12/12/17 12:16 Last Admin: 12/11/17 12:12 Dose: Not Given Vitamin B Complex/Vit C/Folic Acid (Nephro-Trisha) 1 tab PO DAILY [facility] Last Admin: 12/11/17 08:58 Dose: 1 tab - Labs Labs: 12/11/17 05:00 12/07/17 04:20 PT 11.8 Seconds (9.8-13.1) 12/06/17 11:15 INR 1.1 (0.9-1.2) 12/06/17 11:15 APTT 32.5 Seconds (25.6-37.1) 12/06/17 11:50 Assessment and Plan (1) Abdominal pain Status: Acute (2) ESRD (end stage renal disease) on dialysis Status: Chronic (3) Uncontrolled hypertension Status: Acute (4) Severe anemia Status: Acute (5) Enlarged kidney Status: Acute (6) Hyperkalemia Status: Acute
--- NOTE | 2017-12-11 15:48 | CP.PCM.PN ---
Subjective - Date & Time of Evaluation Date of Evaluation: 12/11/17 Time of Evaluation: 15:48 Objective - Vital Signs/Intake and Output Vital Signs (last 24 hours): Temp Pulse Resp BP Pulse Ox 98.5 F 108 H 20 120/83 97 12/11/17 12:42 12/11/17 12:42 12/11/17 12:42 12/11/17 12:42 12/11/17 12:42 - Medications Medications: Current Medications Albuterol/Ipratropium (Duoneb 3 Mg/0.5 Mg (3 Ml) Ud) 3 ml INH RTID PRN PRN Reason: Shortness of Breath Allopurinol (Zyloprim) 100 mg PO DAILY [facility] Last Admin: 12/11/17 09:00 Dose: 100 mg Amlodipine Besylate (Norvasc) 5 mg PO DAILY [facility] Last Admin: 12/11/17 12:10 Dose: Not Given Calcium Acetate (Phoslo) 2,001 mg PO WM [facility] Last Admin: 12/11/17 08:58 Dose: 2,001 mg Cinacalcet (Sensipar) 30 mg PO DAILY [facility] Last Admin: 12/11/17 08:58 Dose: 30 mg Clonidine HCl (Catapres) 0.3 mg PO TID [facility] Last Admin: 12/11/17 14:11 Dose: Not Given Enalaprilat (Vasotec) 2.5 mg IV Q6 [facility] Last Admin: 12/11/17 12:14 Dose: Not Given Epoetin Helder (Procrit) 4,000 unit IV TTS [facility] Last Admin: 12/10/17 09:08 Dose: 4,000 unit Furosemide (Lasix) 40 mg PO DAILY [facility] Last Admin: 12/11/17 12:14 Dose: Not Given Gabapentin (Neurontin) 100 mg PO TID [facility] Last Admin: 12/11/17 08:59 Dose: 100 mg Iron Sucrose 200 mg/ Sodium (Chloride) 110 mls @ 110 mls/hr IVPB TTS [facility] Stop: 12/17/17 09:59 Last Admin: 12/10/17 09:19 Dose: 110 mls/hr Lidocaine (Lidoderm) 2 ea TD DAILY [facility] Last Admin: 12/11/17 09:00 Dose: Not Given Metoprolol Succinate (Toprol Xl) 100 mg PO DAILY [facility] Last Admin: 12/11/17 12:13 Dose: Not Given Minoxidil (Minoxidil) 2.5 mg PO DAILY [facility] Last Admin: 12/11/17 09:02 Dose: 2.5 mg Morphine Sulfate (Morphine) 4 mg IVP Q3 PRN PRN Reason: Pain, severe (8-10) Last Admin: 12/10/17 09:18 Dose: 4 mg Ondansetron HCl (Zofran Inj) 4 mg IVP Q4 PRN PRN Reason: Nausea/Vomiting Last Admin: 12/10/17 23:34 Dose: 4 mg Oxycodone HCl (Oxycontin Extended Release Tab) 10 mg PO Q8 [facility] Stop: 12/12/17 12:16 Last Admin: 12/11/17 12:12 Dose: Not Given Vitamin B Complex/Vit C/Folic Acid (Nephro-Trisha) 1 tab PO DAILY [facility] Last Admin: 12/11/17 08:58 Dose: 1 tab - Labs Labs: 12/11/17 05:00 12/07/17 04:20 PT 11.8 Seconds (9.8-13.1) 12/06/17 11:15 INR 1.1 (0.9-1.2) 12/06/17 11:15 APTT 32.5 Seconds (25.6-37.1) 12/06/17 11:50 - Constitutional Appears: Well - Head Exam Head Exam: ATRAUMATIC, NORMAL INSPECTION, NORMOCEPHALIC - Eye Exam Eye Exam: EOMI, Normal appearance, PERRL Pupil Exam: NORMAL ACCOMODATION, PERRL - ENT Exam ENT Exam: Mucous Membranes Moist, Normal Exam - Neck Exam Neck Exam: Full ROM, Normal Inspection. absent: Lymphadenopathy - Respiratory Exam Respiratory Exam: Clear to Ausculation Bilateral, NORMAL BREATHING PATTERN - Cardiovascular Exam Cardiovascular Exam: REGULAR RHYTHM, +S1, +S2. absent: Murmur - GI/Abdominal Exam GI & Abdominal Exam: Soft, Normal Bowel Sounds. absent: Tenderness - Extremities Exam Extremities Exam: Full ROM, Normal Capillary Refill, Normal Inspection. absent : Joint Swelling, Pedal Edema - Back Exam Back Exam: NORMAL INSPECTION - Neurological Exam Neurological Exam: Alert, Awake, CN II-XII Intact, Normal Gait, Oriented x3 - Psychiatric Exam Psychiatric exam: Normal Affect, Normal Mood - Skin Skin Exam: Dry, Intact, Normal Color, Warm Assessment and Plan (1) Preop cardiovascular exam Status: Acute (2) Uncontrolled hypertension Status: Acute (3) Hemorrhagic cyst Status: Acute (4) Abdominal pain Status: Acute (5) ESRD (end stage renal disease) on dialysis Status: Chronic
--- NOTE | 2017-12-11 17:34 | CP.PCM.PN ---
Subjective - Date & Time of Evaluation Date of Evaluation: 12/11/17 Time of Evaluation: 17:29 - Subjective Subjective: Nephrology Consultation: Assessment: stable Uncontrolled severe HTN with Urgency Left kidney enlargement ? ruptured kidney cyst with hemorrhage with anemia of acute blood loss Hypertensive Chronic Kidney Disease (I12.0) End stage renal disease (N18.6) dependence on hemodialysis (Z99.2) (TTS) via [facility] Anemia (D64.9), Hyperphosphatemia (E83.39), Secondary Hyperparathyroidism (E21.1 ), HTN (I12.0) Plan: Will plan for dialysis tomorrow as TTS schedule. Continue with Nephrovite 1 tab/ day. PRBC as needed for anemia. plan LYLE with HD As outpatient. 2 UNIT PRBC given Continue with phos binders home dose BP control with meds as ordered. Patient on RAAS ellen as enalapril. secondary HTN work up with renin/franco/metanephrine neg in past. agree with sharepoint application architect for checking renal artery work up. can do later as outpt once current hemorrhagic process resolves Glycemic control, Dialysis consistent diet Further work up/management as per primary team Dose meds/antibiotics (if needed) for ESRD status. Avoid fleets enema/magnesium based laxatives. Patient plan for discharge home today. Stable from renal perspective Thanks for allowing me to participate in care of your patient. Will follow patient with you. Please call if any Qs Dr Tom Rodriguez Office: [phone] Chief Complaint;pain abdomen HPI: Pt is a 47 M with hx of ESRD on hemodialysis (TTS) via [facility] @ [facility] since jul 2017, last dialysis yesterday, chronic anemia, hyperphosphatemia, secondary hyperparathyroidism, long standing hx of uncontrolled hypertension, left renal cyst presented with complaints of uncontrolled pain abdomen in flanks both side and pt was restless with it. he is requesting extra HD as he feels extra fluid in body also with high BP ROS: Cardiovascular: No chest pain. Pulmonary: No shortness of breath Gastrointestinal: much improved abdominal pain no nausea. no vomiting. Genitourinary: No pain while urinating. Denies blood in urine. All other negative Physical Examination: General Appearance: comfortable, in no acute respiratory distress, co-operative . Vitals reviewed and noted as below Head; Atraumatic, normocephalic ENT: no ulcers no thrush. Tongue is midline. Oropharynx: no rash or ulcers. EYES: Pupils are equal, round and reactive to light accommodation. Eye muscles and extraocular movement intact. Sclera is anicteric. Neck; supple no lymphadenopathy, no thyromegaly or bruit Lungs: Normal respiratory rate/effort. Breath sounds bilateral equal and clear Heart: Normal rate. s1s2 normal. No rub or gallop. Extremities: no edema. No varicose veins Neurological: Patient is alert, awake and oriented to person, place and time. No focal deficit. Strength bilateral appropriate and equal Skin: Warm and dry. Normal turgor. No rash. Palpitation: Normal elasticity for age Abdomen: Abdomen is soft. Bowel sounds +. There is no abdominal tenderness, no guarding/rigidity or organomegaly Psych: normal insight and normal affect/mood MSK: no joint tenderness or swelling. Digits and nails normal, no deformity : kidney or bladder not palpable Access: permacath Labs/imaging reviewed. Past medical history, past surgical history, family history, social history, allergy reviewed and noted as below Family Hx: no hx of CKD. Non contributory work up in past: renin 19 aldosterone 7, 24 hr urine for metanephrines WNL CT abdomen: left renal multiple cysts Objective - Vital Signs/Intake and Output Vital Signs (last 24 hours): Temp Pulse Resp BP Pulse Ox 98.5 F 108 H 20 120/83 97 12/11/17 12:42 12/11/17 12:42 12/11/17 12:42 12/11/17 12:42 12/11/17 12:42 - Labs Labs: 12/11/17 05:00 12/07/17 04:20 PT 11.8 Seconds (9.8-13.1) 12/06/17 11:15 INR 1.1 (0.9-1.2) 12/06/17 11:15 APTT 32.5 Seconds (25.6-37.1) 12/06/17 11:50
--- NOTE | 2017-12-11 22:24 | CP.PCM.DIS ---
Provider - Provider Date of Admission: 12/06/17 14:43 Attending physician: Rommel Harrell MD Consults: Critical Care, Nephrology, Urology, Anesthesiology and Cardiology. Time Spent in preparation of Discharge (in minutes): 35 Diagnosis - Discharge Diagnosis (1) Abdominal pain Status: Acute Priority: High (2) ESRD (end stage renal disease) on dialysis Status: Chronic Priority: High (3) Uncontrolled hypertension Status: Acute Priority: High (4) Severe anemia Status: Acute Priority: High (5) Enlarged kidney Status: Acute Priority: High (6) Hyperkalemia Status: Acute Priority: High Hospital Course - Lab Results Lab Results: Most Recent Lab Values WBC 11.7 K/uL (4.8-10.8) H 12/11/17 05:00 RBC 3.16 Mil/uL (4.40-5.90) L 12/11/17 05:00 Hgb 8.9 g/dL (12.0-18.0) L 12/11/17 05:00 Hct 26.8 % (35.0-51.0) L 12/11/17 05:00 MCV 84.7 fl (80.0-94.0) 12/11/17 05:00 MCH 28.2 pg (27.0-31.0) 12/11/17 05:00 MCHC 33.3 g/dL (33.0-37.0) 12/11/17 05:00 RDW 18.5 % (11.5-14.5) H 12/11/17 05:00 Plt Count 219 K/uL (130-400) 12/11/17 05:00 MPV 10.7 fl (7.2-11.7) 12/10/17 11:08 Neut % (Auto) 85.8 % (50.0-75.0) H 12/10/17 11:08 Lymph % (Auto) 6.6 % (20.0-40.0) L 12/10/17 11:08 [place] % (Auto) 6.7 % (0.0-10.0) 12/10/17 11:08 Eos % (Auto) 0.5 % (0.0-4.0) 12/10/17 11:08 Baso % (Auto) 0.4 % (0.0-2.0) 12/10/17 11:08 Neut # (Auto) 9.2 K/uL (1.8-7.0) H 12/10/17 11:08 Lymph # (Auto) 0.7 K/uL (1.0-4.3) L 12/10/17 11:08 [place] # (Auto) 0.7 K/uL (0.0-0.8) 12/10/17 11:08 Eos # (Auto) 0.1 K/uL (0.0-0.7) 12/10/17 11:08 Baso # (Auto) 0.0 K/uL (0.0-0.2) 12/10/17 11:08 Neutrophils % (Manual) 85 % (42-75) H 12/10/17 11:08 Lymphocytes % (Manual) 6 % (20-50) L 12/10/17 11:08 Monocytes % (Manual) 8 % (0-10) 12/10/17 11:08 Basophils % (Manual) 1 % (0-2) 12/10/17 11:08 Platelet Estimate Normal (NORMAL) 12/10/17 11:08 Plt Clumps, EDTA Vehicle Damage Appraiser 12/06/17 11:50 Large Platelets Present 12/10/17 11:08 Hypochromasia (manual) Slight 12/10/17 11:08 Poikilocytosis (manual Slight 12/06/17 11:50 Anisocytosis (manual) Slight 12/10/17 11:08 Target Cells Slight 12/10/17 11:08 Tear Drop Cells Slight 12/06/17 11:50 Ovalocytes Slight 12/10/17 11:08 Stomatocytes Slight 12/06/17 11:50 Schistocytes Slight 12/10/17 11:08 Retic Count 2.5 % (0.5-1.5) H 12/07/17 07:15 PT 11.8 Seconds (9.8-13.1) 12/06/17 11:15 INR 1.1 (0.9-1.2) 12/06/17 11:15 APTT 32.5 Seconds (25.6-37.1) 12/06/17 11:50 Sodium 143 mmol/l (132-148) 12/07/17 04:20 Potassium 4.7 MMOL/L (3.6-5.0) 12/07/17 04:20 Chloride 98 mmol/L (98-107) 12/07/17 04:20 Carbon Dioxide 26 mmol/L (22-30) 12/07/17 04:20 Anion Gap 24 (10-20) H 12/07/17 04:20 BUN 55 mg/dl (9-20) H 12/07/17 04:20 Creatinine 13.0 mg/dl (0.8-1.5) H* 12/07/17 04:20 Est GFR ( Amer) 5 12/07/17 04:20 Est GFR (Non-Af Amer) 4 12/07/17 04:20 POC Glucose (mg/dL) 104 mg/dL (65-110) 12/10/17 16:04 Random Glucose 108 mg/dL (75-110) 12/07/17 04:20 Calcium 8.8 mg/dL (8.4-10.2) 12/07/17 04:20 Phosphorus 4.9 mg/dl (2.5-4.5) H 12/09/17 09:36 Iron 22 ug/dL (49-181) L 12/07/17 07:15 TIBC 205 ug/dL (250-450) L 12/07/17 07:15 % Saturation 11 % (20-55) L 12/07/17 07:15 Total Bilirubin 0.5 mg/dl (0.2-1.3) 12/07/17 04:20 AST 14 U/L (17-59) L D 12/07/17 04:20 ALT 18 U/L (21-72) L 12/07/17 04:20 Alkaline Phosphatase 41 U/L (38-126) 12/07/17 04:20 Troponin I 0.0240 ng/mL (0.00-0.120) 12/06/17 11:50 Total Protein 6.5 G/DL (6.3-8.2) 12/07/17 04:20 Albumin 3.7 g/dL (3.5-5.0) 12/07/17 04:20 Globulin 2.8 gm/dL (2.2-3.9) 12/07/17 04:20 Albumin/Globulin Ratio 1.3 (1.0-2.1) 12/07/17 04:20 Triglycerides 83 mg/DL (0-149) D 12/07/17 04:20 Cholesterol 96 mg/dL (0-199) 12/07/17 04:20 LDL Cholesterol Direct 32 mg/dL (0-129) 12/07/17 04:20 HDL Cholesterol 35 MG/DL (30-70) 12/07/17 04:20 Lipase 35 U/L (23-300) 12/06/17 11:50 Vitamin B12 890 pg/mL (239-931) 12/07/17 07:15 RBC Folate 1777 ng/mL RBC (>280) 12/07/17 07:15 Thyroxine (T4) 7.67 ug/dl (5.5-11.0) 12/07/17 04:20 TSH 3rd Generation 0.62 mIU/ML (0.46-4.68) 12/07/17 04:20 Hep Bs Antigen Negative (NEGATIVE) 12/10/17 08:12 Hep Bs Antibody Negative (NEGATIVE) 12/10/17 08:12 Hep B Core IgM Ab Negative (NEGATIVE) 12/10/17 08:12 Hepatitis C Antibody Negative (NEGATIVE) 12/10/17 08:12 Blood Type O POSITIVE 12/07/17 07:15 Antibody Screen Negative 12/07/17 07:15 Crossmatch See Detail 12/07/17 07:15 BBK History Checked Patient has bt 12/07/17 07:15 - Date & Time of H&P Date of H&P: 12/07/17 Time of H&P: 12:00 Discharge Exam - Head Exam Head Exam: ATRAUMATIC, NORMAL INSPECTION, NORMOCEPHALIC - Eye Exam Eye Exam: PERRL - ENT Exam ENT Exam: Normal Exam - Neck Exam Neck exam: Normal Inspection - Respiratory Exam Respiratory Exam: NORMAL BREATHING PATTERN - Cardiovascular Exam Cardiovascular Exam: REGULAR RHYTHM - GI/Abdominal Exam GI & Abdominal Exam: Normal Bowel Sounds, Tenderness (LUQ, L flank) - Extremities Exam Extremities exam: normal inspection - Back Exam Back exam: NORMAL INSPECTION - Neurological Exam Neurological exam: Alert, Oriented x3 Additional comments: No motor sensory deficit. - Psychiatric Exam Psychiatric exam: Normal Mood - Skin Skin Exam: Warm Discharge Plan - Discharge Medications Prescriptions: Promethazine/Codeine [Phenergan/Codeine Oral Syrup] 10 ml PO Q6 PRN #1 bottle PRN Reason: Cough - Follow Up Plan Condition: FAIR Disposition: HOME/ ROUTINE Patient education suggested?: Yes Instructions: Hyperkalemia (DC), Acute Abdomen (Belly Pain), Adult (DC) Additional Instructions: continue dialysis t-thurs-sat follow up with pmd in 1 week. Referrals: Jayden Neal MD [Medical Doctor] - Jaspreet Agee MD [Staff Provider] - Hilario Walters MD [Staff Provider] - Rommel Harrell MD [Family Provider] -
== END 2017-12-11 15:15 | disposition home or self-care (01) | DRG 331 ==
LOC: H.ER 11:13 → H.ERHOLD 14:43 → H.TEL 17:56
PROVIDERS: ADMIT Internal Medicine Pulmonary Disease; ATTEND Internal Medicine Pulmonary Disease
PROC: 30233N1 Transfusion of Nonautologous Red Blood Cells into Peripheral Vein, Percutaneous Approach (ICD-10-PCS; 2017-12-06)
PROC: 5A1D70Z Performance of Urinary Filtration, Intermittent, Less than 6 Hours Per Day (ICD-10-PCS; principal; 2017-12-08)
DX: N28.89 Other specified disorders of kidney and ureter (principal); E87.5 Hyperkalemia; D62 Acute posthemorrhagic anemia; I12.0 Hypertensive chronic kidney disease with stage 5 chronic kidney disease or end stage renal disease; N18.6 End stage renal disease; I16.0 Hypertensive urgency; E83.39 Other disorders of phosphorus metabolism; N25.81 Secondary hyperparathyroidism of renal origin; N28.1 Cyst of kidney, acquired; Z99.2 Dependence on renal dialysis; E78.00 Pure hypercholesterolemia, unspecified; J45.909 Unspecified asthma, uncomplicated; F32.9 Major depressive disorder, single episode, unspecified; F17.210 Nicotine dependence, cigarettes, uncomplicated; Z79.891 Long term (current) use of opiate analgesic; G89.29 Other chronic pain; N28.81 Hypertrophy of kidney